=== PATIENT | female | born 1935 | race Caucasian/White ===

== ENCOUNTER → 2016-09-26 | Outpatient (CLI) | payer OTHER ==
[~2016-09-26] MED LIST: ACETAMINOPHEN325 M1 PO; ADULT LOW DOSE81 MG PO; ADVAIRDISKUS; ALBUTEROL2.5 MG/0.5 INH; AMBIEN 5 MG TABL5 M1 PO; ARICEPT10 M1 PO; ASPIRIN EC81 M1 PO; ASPIRIN325; AVAPRO300 MG PO; AVELOX 400 MG400 M1 PO; AVELOX 400 MG400 MG PO; AVINZA 30 MG CA30 MG PO; B-COMPLEX PLUS1 EACH PO; B12INJ PO; BALANCED B-CO400 MCG PO; BENICAR40 MG PO; BROMDAY1.7 ML; BROMDAY1.7 ML OP; BROVANA15 MCG/2 M INH; BYSTOLIC 5 MG5 M1 PO; CARVEDILOL12.5 MG PO; CELEXA 20 MG TA20 M1 PO; CEPHALEXIN 500500 M1 PO; CIPRO500 MG PO; CIPROFLOXACIN500 M3 PO; COMBIVENT INH; COUMADIN 3 MG TA3 MG PO; COUMADIN 4 MG TA4 M1 PO; COZAAR 25 MG TA25 M1 PO; CYMBALTA60 MG PO; DESYREL150 MG; DESYREL50 MG PO; DIABETA 5MG TABL5 MG; DILAUDID 4 MG TA4 M1 PO; DOXYCYCLINE 10100 MG PO; DUONEB 2.5-0.5 M3 ML IH; DUONEB 2.5-0.5 M3 ML INH; DURAGESIC1 EAC2 TD; ENDOCET 10-3251 EACH PO; FENTANYL PA12 MCG/HR TD; FISH OIL 1,001000 M1 PO; FISHOIL PO; FLOMAX PO; FLONASE16 GM; FOLIC ACID1 MG PO; FUROSEMIDE 40 M40 M1 PO; GLYBURID-METFO1 EAC3 PO; GLYBURIDE 5 MG T5 MG PO; HUMALOG PE100 UNIT/1 SUBQ; HUMALOG PE100 UNIT/M SUBQ; HUMALOG100 UNIT/1 SQ; HYDROCODON-ACE1 EAC5 PO; HYDROCODON-ACE1 EAC7 PO; HYDROCODONE-AP1 EA11 PO; IMDUR 30 MG TAB30 M1 PO; K-DUR 20 MEQ T20 MEQ PO; KLOR-CON PO; LASIX 40 MG TAB40 M2 PO; LEVEMIR SC; LEVEMIR SUBQ; LIDOCAINE 22 %/30 GM; LIPITOR 20 MG T20 M1 PO; LIPITOR40 MG PO; LISINOPRIL40 MG PO; LOTEMAX5 ML; LOTEMAX5 ML OP; LUTEIN10 MG PO; LUTEIN20 MG PO; LYRICA 75 MG CA75 MG PO; MACROBID 100 M100 M1 PO; MEDROLDOSEPACK PO; MELOXICAM7.5 MG PO; METHADONE HCL 110 M1 PO; METOCLOPRAMIDE10 MG PO; MIRALAX17 GM PO; MIRALAX255 GM PO; MUCINEX600 MG PO; NEOMYC-POLYM-DEX5 ML TOP; NEURONTIN 300300 M1 PO; NEURONTIN 300M300 M2; NEURONTIN 300M300 M2 PO; NEURONTIN 400400 M1 PO; NEURONTIN800 MG PO; NEXIUM40 MG PO; NITROGLYCERIN0.4 MG SL; NORCO 10-325 T1 EACH PO; NORCO 5-325 TA1 EACH PO; NORCO 7.5-3251 EACH PO; NORVASC5 MG PO; NUCYNTA ER200 MG PO; OMNARIS; OPANA ER10 M1 PO; OPANA ER15 M1 PO; OPANA ER7.5 M1 PO; OXECTA5 MG PO; OXYCODONE-ACET1 EACH PO; OXYCONTIN PO; OXYCONTIN10 M1 PO; OXYCONTIN10 MG PO; OXYCONTIN15 MG PO; PERCOCET 10-321 EACH PO; PERCOCET 5-3251 EACH PO; PERCOCET 7.5-31 EAC1 PO; PHENERGAN 25 MG25 M1 PO; PHENERGAN 25 MG25 MG PO; PHISOHEX148 ML; PLAVIX 75 MG TA75 MG PO; POTASSIUM20 PO; PREDNISONE; PREDNISONE 10 M10 M1 PO; PREDNISONE 10 M10 MG PO; PREDNISONE 5 MG5 M1 PO; PREDNISONE 5 MG5 MG PO; PREVACID 24HR15 MG PO; PREVACID 30MG C30 M1 PO; PRINIVIL10 MG PO; PROTONIX40 M1 PO; PROVENTIL; PROVENTIL HFA6.7 G1 INH; SANTYL OINTMENT30 G1 TOP; SANTYL OINTMENT30 G1 TP; SENNA-S TABLET1 EACH PO; SERTRALINE HCL50 MG PO; SIMVASTATIN40 MG PO; SINGULAIR 10 MG10 M1 PO; SPIRIVA INH; SYMBICORT160 MCG/4. INH; TAMSULOSIN HCL0.4 M1 PO; TAMSULOSIN HCL0.4 MG PO; TEGRETOL200 MG PO; TIZANIDINE HCL6 MG PO; TRAMADOL 50 MG50 MG PO; TRAZODONE HCL50 MG PO; TRIPLE ANTIBIO1 EACH TP; ULTRAM 50MG TAB50 MG PO; UNICOMPLEX M TA1 TA1 PO; VITAMIN B-12100 MC1 PO; VITAMIN B-12500 MCG PO; VITAMIN C PLUS PO; VITAMIN C PO; VITAMIN D-32000 UNIT PO; VOLTAREN GEL 1100 G1 TOP; VOLTAREN100 GM; VYTORIN 10-401 EACH PO; VYTORIN 10-801 EACH PO; ZANAFLEX4 MG PO; ZAROXOLYN 5MG TA5 M1 PO; ZETIA10 MG PO; [UNRECOGNIZED DRUG - OTHER] PO; [UNRECOGNIZED DRUG - OTHER] TOP
== END ==
LOC: RAD 15:00
DX: R06.02 Shortness of breath (principal); J18.9 Pneumonia, unspecified organism; R91.8 Other nonspecific abnormal finding of lung field; R07.9 Chest pain, unspecified

== ENCOUNTER → 2016-09-29 | Outpatient (CLI) | payer OTHER ==
[~2016-09-29] VITALS: Ht 167.6 cm; Wt 97.5 kg
--- NOTE | ~2016-09-29 | HPC ---
[facility] [address] [place] [address] PAIN MANAGEMENT CONSULTATION Name: DONNACINDYDENZELESTEBAN ANN Room #: REG LAWRENCE Armstrong.#: [id number] Admission: 09/29/16 Attend Phys: Jorje Jha DO Discharge: Date of : 37 Report #: [id number] THIS REPORT FOR: //name// CC: Clayton Jha The patient is a 81-year-old female well known to the pain clinic, being treated for lumbar radiculopathy status post decompressive laminectomy, SI joint dysfunction, myofascial pain, morbid obesity, COPD requiring complex medication management, last visit 08/01/2016, we increased the patient's methadone about 33% from 10 mg t.i.d. to 2 in the morning, 1 at noon, 1 at night, continued hydromorphone 4 mg t.i.d. Returns to pain clinic today noting really no dramatic improvement with this slight increase in her opiate medication. She describes sharp, stabbing, aching, burning pain, bilateral legs, rates it a 5-8 on a 0-10 visual analog scale, worse with activity. Continues to take Tegretol b.i.d. (200 mg tablet). PHYSICAL EXAMINATION: Otherwise unchanged, 81-year-old female, BMI is 34.7 kilograms per meter squared. Using supplemental oxygen for COPD. BMI is elevated at 34.7, blood pressure is on EMR, pulse 72, respirations are 20, oxygen saturation is 97%. Is in a wheel-chair presently, notes she is becoming less and less functional, lower extremity burning, dysesthesia is problematic with any and all movement. Lower extremity strength is objectively symmetric to dorsiflexion, plantar flexion, lower extremity extension and hip flexion. Objective strength is perhaps 3-4/5. Straight leg raise is negative. Peripheral pulses are faint. ASSESSMENT: Lumbar radiculopathy status post decompressive laminectomy, SI joint dysfunction, myofascial pain component, neuropathic pain component, requiring complex medication management. Comorbidities include morbid obesity and chronic obstructive pulmonary disease. RECOMMENDATIONS: After discussion with the patient today, I have elected to simply continue methadone unchanged, 10 mg 2 in the morning, 1 at noon, 1 at night, hydromorphone 4 mg t.i.d. I recommend that she follow up with Dr. Lazo regarding consideration for vascular claudication. If this is not the case we may consider increasing her Tegretol to t.i.d. next visit. Discharged in good and stable condition. <ELECTRONICALLY SIGNED> By: Jorje Jha DO 10/06/16 [id number] Jorje Jha DO /nt
[2016-09-29 11:09] VITALS: BP 123/69
== END ==
LOC: PAIN 06:47
DX: M54.16 Radiculopathy, lumbar region (principal); M96.1 Postlaminectomy syndrome, not elsewhere classified; M79.1 Myalgia; E66.01 Morbid (severe) obesity due to excess calories; Z68.34 Body mass index [BMI] 34.0-34.9, adult; J44.9 Chronic obstructive pulmonary disease, unspecified; I10 Essential (primary) hypertension

== ENCOUNTER → 2016-10-10 | Outpatient (CLI) | payer OTHER | LOC: RAD 01:12 | DX: Z12.31 Encounter for screening mammogram for malignant neoplasm of breast (principal) ==

== ENCOUNTER 2016-12-12 10:39 | Emergency (ER) | payer OTHER ==
[~2016-12-12] VITALS: Ht 165.1 cm; Wt 97.1 kg
--- NOTE | ~2016-12-12 | EKG ---
[address] [place] [place] [address] ELECTROCARDIOGRAM REPORT Name: ESTEBAN OOR Room #: DEP Nidia#: [id number] Admission: 12/12/16 Attend Phys: Discharge: 12/12/16 Date of : 37 Report #: [id number] THIS REPORT FOR: //name// [facility] ED Test Date: 2016-12-12 Test Time: 11:16:03 Pat Name: ESTEBAN ORO Department: Room: Gender: F Transporter Driver: mojgan : 1935 Requested By: Yovana Camp Order Number: [id number] MD: Arias Vizcaino Measurements Intervals [place] Rate: 60 P: 156 OR: 149 QRS: 28 QRSD: 94 T: 147 QT: 411 QTc: 411 Interpretive Statements Sinus or ectopic atrial rhythm Probable left atrial enlargement Inferior infarct, old Compared to ECG 03/10/2016 12:29:48 Ectopic atrial rhythm now present no change Electronically Signed On 12-12-2016 18:23:14 CDT by Arias Vizcaino [email or web address] <ELECTRONICALLY SIGNED> By: Arias Vizcaino MD 12/12/16 1823 1116 15 MD AVA Gamino
[~2016-12-12 10:39] MED LIST changes: -CIPRO500 MG PO
[2016-12-12 11:06] LABS: URINE BILIRUBIN NEGATIVE (Negative); URINE BLOOD TRACE (Negative); URINE COLOR YELLOW; URINE GLUCOSE-RANDOM* NEGATIVE (Negative); URINE KETONES NEGATIVE (Negative); URINE NITRITE POSITIVE (Negative); URINE PROTEIN (DIPSTICK) 1+ (Negative); URINE SPECIFIC GRAVITY 1.015 (1.003-1.035); URINE UROBILINOGEN 0.2 E.U./dl (0.2-1.0)
[2016-12-12 11:38] LABS: ABSOLUTE NEUTROPHILS 4.9 thou/uL (1.4-8.2); BASOPHILS 0.7 % (0.0-2.0); EOSINOPHILS 3.2 % (0.0-3.0); HEMATOCRIT 30.4 % (37.0-47.0); HEMOGLOBIN 10.2 gm/dL (12.0-15.0); LYMPHOCYTES 22.6 % (24.0-44.0); MCH 29.9 pg (26.0-34.0); MCHC 33.6 g/dL (28.0-37.0); MONOCYTES 9.7 % (1.0-8.0); PLATELET COUNT 227 thou/uL (150-400); POLYS 63.8 % (36.0-66.0); RBC 3.42 mil/uL (4.20-5.00); RDW 15.2 % (10.5-14.5); WBC 7.7 thou/uL (4.0-11.0)
[2016-12-12 11:40] LABS: MANUAL DIFF NO
[2016-12-12 11:48] LABS: CALCIUM 8.8 mg/dL (8.5-10.1); CREATININE 1.3 mg/dL (0.6-1.3); POTASSIUM 4.5 mmol/L (3.5-5.1)
[2016-12-12 11:49] LABS: SQUAMOUS 0-3 Few /LPF (0-3)
[2016-12-12 11:50] LABS: CRYSTALS None Seen /LPF (None Seen); HYALINE CASTS 4-10 Moderate /LPF (None Seen); URINE RBC 3-10 Few /HPF (0-2)
[2016-12-12 11:51] LABS: BACTERIA >30 Many /HPF (None Seen)
[2016-12-12 11:53] LABS: ALBUMIN 2.8 g/dL (3.4-5.0); TOTAL BILIRUBIN 0.4 mg/dL (<0.1-1.0); TOTAL PROTEIN 6.1 g/dL (6.4-8.2)
[2016-12-12] MEDS ORDERED: CIPRO500 MG PO (12:08)
[2016-12-12 13:04] VITALS: BP 142/68
== END 2016-12-12 13:05 | disposition home or self-care (01) ==
LOC: ER 10:39
PROVIDERS: Physician Assistant
DX: N39.0 Urinary tract infection, site not specified (principal); J44.9 Chronic obstructive pulmonary disease, unspecified; E11.22 Type 2 diabetes mellitus with diabetic chronic kidney disease; I13.0 Hypertensive heart and chronic kidney disease with heart failure and stage 1 through stage 4 chronic kidney disease, or unspecified chronic kidney disease; N18.9 Chronic kidney disease, unspecified; I50.32 Chronic diastolic (congestive) heart failure; E78.00 Pure hypercholesterolemia, unspecified; K21.9 Gastro-esophageal reflux disease without esophagitis; Z90.49 Acquired absence of other specified parts of digestive tract; Z90.710 Acquired absence of both cervix and uterus; Z88.6 Allergy status to analgesic agent; Z88.8 Allergy status to other drugs, medicaments and biological substances; Z88.5 Allergy status to narcotic agent

== ENCOUNTER → 2017-01-19 | Outpatient (CLI) | payer OTHER ==
[~2017-01-19] VITALS: Ht 167.6 cm; Wt 96.9 kg
[~2017-01-19] MED LIST changes: +ANORO ELLIPTA1 EACH IH; +ARICEPT 5 MG TAB5 MG PO; +CIPRO500 MG PO; +COZAAR 50 MG TA50 M2 PO; +LEXAPRO 10 MG T10 M2 PO; +VENTOLIN HFA 1818 GM INH
--- NOTE | ~2017-01-19 | HPC ---
[facility] [place] [place] [address] PAIN MANAGEMENT CONSULTATION Name: ESTEBAN ORO Room #: REG LAWRENCE Jacob#: [id number] Admission: 01/19/17 Attend Phys: Jorje Jha DO Discharge: Date of : 37 Report #: [id number] THIS REPORT FOR: //name// CC: Clayton Jha The patient is a 81-year-old female, well known to pain clinic, being treated for lumbar radiculopathy status post decompressive laminectomy, SI joint dysfunction, myofascial pain, chronic pain syndrome requiring complex medication management with comorbidities of morbid obesity and COPD. Last visit 11/24/2016, we continued baseline narcotic methadone 10 mg 2 in the morning, 1 at noon, 1 at night, this had been 33% increase in her overall opiate load from July when we increased from t.i.d. to effectively 4 tablets a day. At the last visit, she was still having ongoing pain concerns, using hydromorphone for breakthrough pain 4 mg t.i.d. We elected to rotate to Percocet 10/325 for the breakthrough medicine. She returns to pain clinic today for prolonged visit, she was seen from 8:51-9:20, greater than 50% of this 25 plus minute visit was spent counseling the patient. She has ongoing pain in her back radiating into the left leg. We had done epidural injections in the past, she is now on anticoagulant for history of the DVT. It appears the last lumbar epidural injection had been in August 2015. The patient is complaining of pain, low back, bilateral legs, left greater than right, exacerbated with standing, walking and bending. Describes sharp, stabbing, aching, burning pain, rates it as a 6-7 on a 0-10 visual analog scale with current opiate. PHYSICAL EXAMINATION: Shows 81-year-old female, moderately obese, BMI is 34.5 kg/m2. Blood pressure 157/79, pulse is 80, respirations are 14, and oxygen saturation is 95%. Difficulty rising from the chair, decreased strength in the left leg to hip flexion, lower extremity extension, positive straight leg raise on the left. I reviewed there are no urine drug screens on the chart. In the interval since we last saw her, she was seen in the ER 12/12/2016, for right flank pain, diagnosed as a UTI, she has completed that medication course. The patient is planning on having eye surgery on February 04, for diplopia. She was actually having eye muscle surgery at [facility]. We have elected to postpone interventional therapy with steroids at least 4 weeks after surgery, we will plan on seeing her back in 6 weeks for reevaluation 5 days off Coumadin for consideration for epidural injection under fluoroscopy. We reviewed the fact that opiate medications are being used to provide analgesia [address] [address] PAIN MANAGEMENT CONSULTATION Name: ESTEBAN ORO Room #: REG LAWRENCE Jacob#: [id number] Admission: 01/19/17 Attend Phys: Jorje Jha DO Discharge: Date of : 37 Report #: [id number] adequate to support activities of daily living, not attempting to achieve a specific pain score on the 0-10 Visual Analog Scale. The current opiate medications are providing sufficient analgesia to allow the patient to participate in activities of daily living. The patient is not exhibiting any aberrant behavior suggestive of drug diversion. The patient is not having any adverse reactions to medications. The patient is not suffering from daytime somnolence or mental acuity changes. The patient is managing opiate-induced constipation with appropriate etmg-dxa-dchviya agents and dietary considerations. The patient was counseled on concern for caution with operating a motor vehicle while using opiate medications. A physical exam was performed and the patient's functional status was evaluated. All patients with back pain were advised against the bed rest greater than 4 days and were advised to return to normal activities. Pain score assessment was noted and the treatment plan was reviewed with the patient. All current medications, both prescribed and OTC were reviewed and reconciled on the electronic medical record. Tobacco screening was accomplished and smoking cessation was advised when indicated. BMI was noted and diet/exercise modification was recommended for all patients following outside normal parameters. I reviewed with the patient today their responsibilities to safeguard prescription medications, reviewed their responsibility to utilize medications only as prescribed by the physician. They are to seek and receive pain medications only from 1 physician group ( [facility]). They are to use 1 pharmacy and keep the clinic informed if they change pharmacies. Their responsibilities include making followup visits in a timely fashion and to avoid abrupt discontinuation of medication usage. Their responsibilities further include bringing their medications (bottles from the pharmacy with residual pills) to the visit for possible confirmation of pill counts and the patient understands it is their responsibility to submit to random drug screens to ensure both that the medications prescribed are present, and that no other controlled substances are present. All prescriptions provided today were generated electronically. ASSESSMENT: Symptomatic lumbar radiculopathy status post decompressive laminectomy, sacroiliac joint dysfunction, myofascial pain requiring complex medication management with multiple comorbidities including chronic obstructive pulmonary disease and morbid obesity. RECOMMENDATION: Continue methadone unchanged 10 mg 2 tablets in the morning, 1 at noon, and 1 at night, i.e., 4 tablets a day and we will rotate from Percocet back to hydromorphone 4 mg t.i.d. for breakthrough pain, continue Tegretol unchanged 200 mg b.i.d. Urine drug screen today, no aberrant behavior suggestive for drug diversion, simply complying with our opiate consent to treat contract. Current opiate should show methadone and oxycodone. Rotated back to [facility] [address] [place] [address] PAIN MANAGEMENT CONSULTATION Name: ESTEBAN ORO Room #: REG CL Nidia#: [id number] Admission: 01/19/17 Attend Phys: Jorje Jha DO Discharge: Date of : 37 Report #: [id number] hydromorphone for breakthrough pain. Discharged in good and stable condition after a prolonged visit, greater than 50% of the 25 plus minute visit was spent counseling the patient. By: [id number] Jorje Jha DO /nt
[2017-01-19 08:34] VITALS: BP 157/79
== END ==
LOC: PAIN 07:23
DX: M54.16 Radiculopathy, lumbar region (principal); J44.9 Chronic obstructive pulmonary disease, unspecified; E66.01 Morbid (severe) obesity due to excess calories; I10 Essential (primary) hypertension; G89.4 Chronic pain syndrome

== ENCOUNTER 2017-03-20 08:02 | Emergency (ER) | payer OTHER ==
[~2017-03-20] VITALS: Ht 165.1 cm; Wt 81.7 kg
[2017-03-20 08:28] LABS: URINE BILIRUBIN NEGATIVE (Negative); URINE BLOOD 1+ (Negative); URINE COLOR YELLOW; URINE GLUCOSE-RANDOM* 2+ (Negative); URINE KETONES NEGATIVE (Negative); URINE NITRITE NEGATIVE (Negative); URINE PROTEIN (DIPSTICK) 2+ (Negative); URINE SPECIFIC GRAVITY 1.015 (1.003-1.035); URINE UROBILINOGEN 0.2 E.U./dl (0.2-1.0)
[2017-03-20 08:46] LABS: BACTERIA 1-9 Few /HPF (None Seen); CASTS None Seen /LPF (None Seen); CRYSTALS None Seen /LPF (None Seen); SQUAMOUS 4-10 Moderate /LPF (0-3); URINE RBC 3-10 Few /HPF (0-2); URINE WBC 0-5 Rare /HPF (0-5)
[2017-03-20 08:46] LABS: ABSOLUTE NEUTROPHILS 11.5 thou/uL (1.4-8.2); BASOPHILS 0.6 % (0.0-2.0); EOSINOPHILS 1.6 % (0.0-3.0); HEMATOCRIT 35.7 % (37.0-47.0); HEMOGLOBIN 11.7 gm/dL (12.0-15.0); LYMPHOCYTES 10.1 % (24.0-44.0); MCH 29.5 pg (26.0-34.0); MCHC 32.7 g/dL (28.0-37.0); MCV 90.2 fL (80.0-100.0); MONOCYTES 6.7 % (1.0-8.0); PLATELET COUNT 288 thou/uL (150-400); RBC 3.96 mil/uL (4.20-5.00); RDW 14.1 % (10.5-14.5); WBC 14.2 thou/uL (4.0-11.0)
[2017-03-20 08:49] LABS: MANUAL DIFF NO
[2017-03-20 08:55] LABS: CALCIUM 9.5 mg/dL (8.5-10.1); CREATININE 1.6 mg/dL (0.6-1.0); POTASSIUM 4.2 mmol/L (3.5-5.1)
[2017-03-20 08:59] LABS: ALBUMIN 3.5 g/dL (3.4-5.0); DIRECT BILIRUBIN 0.1 mg/dL (<0.1-0.3); TOTAL BILIRUBIN 0.5 mg/dL (<0.1-1.0); TOTAL PROTEIN 7.6 g/dL (6.4-8.2)
[2017-03-20 10:46] VITALS: BP 152/67
[2017-03-20 11:20] LABS: PROTIME 10.7 Seconds (9.3-11.4)
[2017-03-20] MEDS ORDERED: TEGRETOL200 MG PO (11:39)
[2017-03-20] MEDS ORDERED: METHADONE HCL 110 M1 PO ×2 (11:39)
[2017-03-20] MEDS ORDERED: DILAUDID 4 MG TA4 M1 PO (11:39)
== END 2017-03-20 10:51 | disposition home or self-care (01) ==
LOC: ER 08:02
PROVIDERS: Anesthesiology Pain Medicine; Emergency Medicine
DX: M54.6 Pain in thoracic spine (principal); R10.9 Unspecified abdominal pain; I25.10 Atherosclerotic heart disease of native coronary artery without angina pectoris; I25.2 Old myocardial infarction; I13.0 Hypertensive heart and chronic kidney disease with heart failure and stage 1 through stage 4 chronic kidney disease, or unspecified chronic kidney disease; E11.22 Type 2 diabetes mellitus with diabetic chronic kidney disease; N18.9 Chronic kidney disease, unspecified; I50.9 Heart failure, unspecified; J44.9 Chronic obstructive pulmonary disease, unspecified; E78.5 Hyperlipidemia, unspecified; K21.9 Gastro-esophageal reflux disease without esophagitis; E11.43 Type 2 diabetes mellitus with diabetic autonomic (poly)neuropathy; K31.84 Gastroparesis; M19.90 Unspecified osteoarthritis, unspecified site; Z95.5 Presence of coronary angioplasty implant and graft; Z90.49 Acquired absence of other specified parts of digestive tract; Z90.710 Acquired absence of both cervix and uterus; Z86.711 Personal history of pulmonary embolism; Z86.718 Personal history of other venous thrombosis and embolism; Z85.841 Personal history of malignant neoplasm of brain; Z87.442 Personal history of urinary calculi; Z79.4 Long term (current) use of insulin; Z88.5 Allergy status to narcotic agent; Z88.8 Allergy status to other drugs, medicaments and biological substances

== ENCOUNTER → 2017-03-20 | Outpatient (CLI) | payer OTHER ==
[~2017-03-20] VITALS: Ht 167.6 cm; Wt 102.5 kg
[2017-03-20 10:54] VITALS: BP 121/84
== END ==
LOC: PAIN 06:51
DX: M54.16 Radiculopathy, lumbar region (principal); G89.29 Other chronic pain; M47.896 Other spondylosis, lumbar region; I25.10 Atherosclerotic heart disease of native coronary artery without angina pectoris; F11.20 Opioid dependence, uncomplicated; J44.9 Chronic obstructive pulmonary disease, unspecified; Z86.711 Personal history of pulmonary embolism; Z95.5 Presence of coronary angioplasty implant and graft; Z79.01 Long term (current) use of anticoagulants; Z79.899 Other long term (current) drug therapy; Z98.890 Other specified postprocedural states; Z88.8 Allergy status to other drugs, medicaments and biological substances

== ENCOUNTER → 2017-04-02 | Outpatient (CLI) | payer OTHER ==
[~2017-04-02] VITALS: Ht 167.6 cm; Wt 102.2 kg
[2017-04-02 10:14] VITALS: BP 131/109
== END | disposition home or self-care (01) ==
LOC: PAIN 06:45
DX: M47.816 Spondylosis without myelopathy or radiculopathy, lumbar region (principal); Z98.890 Other specified postprocedural states; J44.9 Chronic obstructive pulmonary disease, unspecified

== ENCOUNTER → 2017-04-07 | Outpatient (CLI) | payer OTHER | LOC: CAT 08:43 | DX: N20.0 Calculus of kidney (principal) ==

== ENCOUNTER → 2017-05-06 | Outpatient (CLI) | payer OTHER | LOC: MRI 10:20 | DX: M47.896 Other spondylosis, lumbar region (principal); M48.06 Spinal stenosis, lumbar region; M51.34 Other intervertebral disc degeneration, thoracic region; M79.1 Myalgia ==

== ENCOUNTER → 2017-06-02 | Outpatient (CLI) | payer OTHER | LOC: CAT 08:00 → EDSTATUS 08:51 → CAT 11:12 | DX: K59.00 Constipation, unspecified (principal); M79.3 Panniculitis, unspecified ==

== ENCOUNTER → 2017-06-08 | Outpatient (CLI) | payer OTHER ==
[~2017-06-08] VITALS: Ht 165.1 cm; Wt 100.5 kg
--- NOTE | ~2017-06-08 | HPC ---
[facility] [place] [address] PAIN MANAGEMENT CONSULTATION Name: ESTEBAN ORO Room #: REG LAWRENCE Jacob#: [id number] Admission: 06/08/17 Attend Phys: Jorje Jha DO Discharge: Date of : 37 Report #: [id number] THIS REPORT FOR: //name// CC: Clayton Jha The patient is an 82-year-old female last seen in the pain clinic on 01/19/2017, being treated for lumbar radiculopathy status post decompressive laminectomy, lumbar spondylosis, SI joint dysfunction, morbid obesity and COPD requiring high risk complex medication management. The patient was continued at last visit on methadone 10 mg 2 in the morning, 1 at noon, 1 at night. We rotated from Percocet 10/325 to hydromorphone 4 mg t.i.d. Continued Tegretol 200 mg b.i.d. Urine drug screen at that time was positive for prescribed medications as expected. The patient returns to pain clinic today. She notes that the right L4-L5 and L5-S1 facet joint injections accomplished at last visit afforded very good relief, but only for a number of days. She notes pain continues to be primarily in the right low back. She is using current pain medications with reasonable efficacy. She is typically quite disabled in a wheelchair, but notes back pain interferes with function. Rates her pain a 4-5 on a VAS. Pain is in the center, right mid low back. Also complains of some left knee pain. She is following with Dr. Monsalve regarding her knees. She is planning on having surgery with him in June. We reviewed the fact that opiate medications are being used to provide analgesia adequate to support activities of daily living, not attempting to achieve a specific pain score on the 0-10 Visual Analog Scale. The current opiate medications are providing sufficient analgesia to allow the patient to participate in activities of daily living. The patient is not exhibiting any aberrant behavior suggestive of drug diversion. The patient is not having any adverse reactions to medications. The patient is not suffering from daytime somnolence or mental acuity changes. The patient is managing opiate-induced constipation with appropriate iiau-tub-jkbmarh agents and dietary considerations. The patient was counseled on concern for caution with operating a motor vehicle while using opiate medications. A physical exam was performed and the patient's functional status was evaluated. All patients with back pain were advised against the bed rest greater than 4 days and were advised to return to normal activities. Pain score assessment was noted and the treatment plan was reviewed with the patient. All current medications, both prescribed and OTC were reviewed and reconciled on the electronic medical record. Tobacco screening [place] [address] PAIN MANAGEMENT CONSULTATION Name: ESTEBAN ORO Room #: REG LAWRENCE Jacob#: [id number] Admission: 06/08/17 Attend Phys: Jorje Jha DO Discharge: Date of : 37 Report #: [id number] cessation was advised when indicated. BMI was noted and diet/exercise modification was recommended for all patients following outside normal parameters. I reviewed with the patient today their responsibilities to safeguard prescription medications, reviewed their responsibility to utilize medications only as prescribed by the physician. They are to seek and receive pain medications only from 1 physician group ( [facility]). They are to use 1 pharmacy and keep the clinic informed if they change pharmacies. Their responsibilities include making followup visits in a timely fashion and to avoid abrupt discontinuation of medication usage. Their responsibilities further include bringing their medications (bottles from the pharmacy with residual pills) to the visit for possible confirmation of pill counts and the patient understands it is their responsibility to submit to random drug screens to ensure both that the medications prescribed are present, and that no other controlled substances are present. All prescriptions provided today were generated electronically. PHYSICAL EXAMINATION: GENERAL: Shows 82-year-old female. VITAL SIGNS: BMI is elevated at 36.9 kilograms per meter squared, supplemental oxygen yielding oxygen saturation 95% (I believe is at 3 liters presently). Blood pressure 129/72, pulse 68, respirations 22. NEUROLOGIC: Alert and oriented to person, place and time, judged to be a reasonable historian. EXTREMITIES: Very tender right low back, pain is exacerbated with rotation and side bending. Lower extremity strength generally symmetric, but diminished, moderately antalgic gait. ASSESSMENT: Lumbar radiculopathy status post decompressive laminectomy, sacroiliac joint dysfunction, morbid obesity, chronic obstructive pulmonary disease requiring high risk complex medication management. Urine drug screen last visit positive for prescribed medications. Renew current medications unchanged, methadone 10 mg 2 in the morning, 1 at noon, 1 in the , hydromorphone 4 mg t.i.d., Tegretol 200 mg b.i.d. Acute exacerbation of axial back pain and lumbar spondylosis. Good transient relief with lumbar facet joint injections at L4-L5 and L5-S1. Move forward with medial branch dorsal rami diagnostic blocks at L3, L4, L5 on the right. If this affords transient relief, we will consider moving forward with radiofrequency neurolysis. We can do the blocks with a 25-gauge needle on Coumadin; however, to move forward with neurolysis, somewhat larger needle, we will want to ensure that the patient is not on her Coumadin and INR is less than 1.5. The patient understands this. [facility] [address] [place] [address] PAIN MANAGEMENT CONSULTATION Name: DONNACINDYESTEBAN Room #: REG CL Nidia#: [id number] Admission: 06/08/17 Attend Phys: Jorje Jha DO Discharge: Date of : 37 Report #: [id number] PROCEDURE NOTE: Medial branch dorsal rami diagnostic block on the right L3, L4, L5. DESCRIPTION OF PROCEDURE: After written informed consent was obtained, the patient was taken to fluoroscopy suite, placed in prone position. After sterile prep and drape, skin was raised, a 25-gauge stylet needle was placed to contact superior articular process of L5 and L4, lateral to the L3-L4 and L4-L5 facet joints and third needle was placed to the sacral alar notch corresponding to the L5 dorsal rami. AP and lateral projections showed good needle placement. A 1 mL of 50:50 mix of 0.5% preservative-free bupivacaine plus 1.5% preservative-free Xylocaine with 1:200,000 epinephrine was injected at all 3 sites. All 3 needles removed. The area was cleansed, Band-Aids applied. The patient was monitored for an appropriate period of time, notes some incremental improvement of baseline pain. She will call back tomorrow with subjective pain score for the next 4 hours. We will decide then to move forward with RFL or not. By: [id number] Jorje Jha DO /chau
[2017-06-08 13:04] VITALS: BP 129/72
== END | disposition home or self-care (01) ==
LOC: PAIN 07:17
DX: M47.816 Spondylosis without myelopathy or radiculopathy, lumbar region (principal); G89.29 Other chronic pain; M54.5 Low back pain; M53.3 Sacrococcygeal disorders, not elsewhere classified; J44.9 Chronic obstructive pulmonary disease, unspecified; E66.01 Morbid (severe) obesity due to excess calories; Z79.891 Long term (current) use of opiate analgesic; Z68.36 Body mass index [BMI] 36.0-36.9, adult; Z88.6 Allergy status to analgesic agent; Z88.8 Allergy status to other drugs, medicaments and biological substances; Z79.899 Other long term (current) drug therapy; Z98.890 Other specified postprocedural states

== ENCOUNTER → 2017-06-19 | Outpatient (CLI) | payer OTHER ==
[~2017-06-19] VITALS: Ht 165.1 cm; Wt 99.3 kg
[~2017-06-19] MED LIST changes: +ACCUNEB SO1.25 MG/1 INH; +ANORO ELLIPTA1 EACH INH; +FLOMAX0.4 MG PO
--- NOTE | ~2017-06-19 | HPC ---
[facility] [address] PAIN MANAGEMENT CONSULTATION Name: DONNACINDYDENZELESTEBAN ANN Room #: REG LAWRENCE Jacob#: [id number] Admission: 06/19/17 Attend Phys: Jorje Jha DO Discharge: Date of : 37 Report #: [id number] THIS REPORT FOR: //name// CC: Clayton Jha HISTORY OF PRESENT ILLNESS: The patient is a very pleasant 82-year-old female being treated for symptomatic lumbar radiculopathy status post decompressive laminectomies and lumbar spondylosis, comorbidities include COPD requiring high-risk complex medication management. Last visit was on 06/08/2017. We had preceded with medial branch dorsal rami diagnostic blocks L3, L4 and L5 for right-sided ongoing pain. The patient notes she had excellent short term relief. She presents to pain clinic today for radiofrequency neurolysis of same. Rates his subjective pain score is 3-4 on a VAS. ASSESSMENT: Right low back pain, lumbar spondylosis. RECOMMENDATIONS: Radiofrequency neurolysis L3, L4 and L5. PROCEDURE: After written informed consent was obtained, the patient was taken to the fluoroscopy suite and placed in prone position. After sterile prep and drape, skin wheal was raised. A 15 mm RFK needle was placed to contact superior articular process of L5, L4, and L3. AP and lateral projection showed good needle placement. Initial impedance, sensory and motor testing was accomplished, those numbers are on the chart. Each needle was injected with 1 mL of 1% preservative-free Xylocaine, heated to 80 degrees centigrade for 90 seconds. A 13 mg of triamcinolone plus 1 mL of 0.5% preservative-free bupivacaine was injected at each site. All 3 needles removed. The area was cleansed, Band-Aids applied. Fluoroscopy time was under 20 seconds. The patient was monitored for an appropriate period of time, discharged in good and stable condition, noting incremental improvement of baseline pain. Follow up for medication management. <ELECTRONICALLY SIGNED> By: Jorje Jha DO 06/22/17 1014 1614 [id number] Jorje Jha DO /nt
[2017-06-19 14:13] VITALS: BP 148/100
== END | disposition home or self-care (01) ==
LOC: PAIN 07:22
DX: M47.26 Other spondylosis with radiculopathy, lumbar region (principal); J44.9 Chronic obstructive pulmonary disease, unspecified; Z87.891 Personal history of nicotine dependence

== ENCOUNTER 2017-06-23 01:48 | Inpatient (IN) | payer OTHER ==
[2017-06-15 09:30] LABS: URINE BILIRUBIN NEGATIVE (Negative); URINE BLOOD TRACE (Negative); URINE COLOR YELLOW; URINE GLUCOSE-RANDOM* NEGATIVE (Negative); URINE KETONES NEGATIVE (Negative); URINE LEUKOCYTES-REFLEX NEGATIVE (Negative); URINE PROTEIN (DIPSTICK) 2+ (Negative); URINE SPECIFIC GRAVITY 1.015 (1.003-1.035); URINE UROBILINOGEN 0.2 E.U./dl (0.2-1.0)
[2017-06-15 09:34] LABS: HEMATOCRIT 31.5 % (37.0-47.0); HEMOGLOBIN 10.3 gm/dL (12.0-15.0); MCH 28.8 pg (26.0-34.0); MCHC 32.8 g/dL (28.0-37.0); MCV 87.9 fL (80.0-100.0); RBC 3.58 mil/uL (4.20-5.00); RDW 15.2 % (10.5-14.5); WBC 8.9 thou/uL (4.0-11.0)
[2017-06-15 09:41] LABS: CALCIUM 8.8 mg/dL (8.5-10.1); CREATININE 1.2 mg/dL (0.6-1.0)
[2017-06-15 09:43] LABS: INR 1.2; PROTIME 12.4 Seconds (9.3-11.4)
[2017-06-15 09:56] LABS: SQUAMOUS 4-10 Moderate /LPF (0-3)
[2017-06-15 09:57] LABS: HYALINE CASTS 0-3 Few /LPF (None Seen)
[2017-06-15 09:59] LABS: CRYSTALS None Seen /LPF (None Seen); URINE RBC 0-2 Rare /HPF (0-2); URINE WBC-REFLEX 0-5 Rare /HPF (0-5)
[2017-06-15 17:07] LABS: GLYCOHEMOGLOBIN (HGB A1C) 6.5 % (4.8-5.6)
[~2017-06-23] VITALS: Ht 167.6 cm; Wt 90.7 kg
--- NOTE | ~2017-06-23 | O ---
[facility] [place] [address] OPERATIVE REPORT Name: ESTEBAN ORO Room #: 150-6 ADM IN M.R.#: [id number] Admission: 06/23/17 Attend Phys: Mic Monsalve MD Discharge: Date of : 37 Report #: [id number] THIS REPORT FOR: //name// CC: Clayton Monsalve DATE OF SERVICE: 06/23/2017 DATE OF SERVICE: 06/23/2017 PREOPERATIVE DIAGNOSIS: Left knee degenerative joint disease, severe. POSTOPERATIVE DIAGNOSIS: Left knee degenerative joint disease, severe. PROCEDURE: Left total knee arthroplasty. SURGEON: Mic Monsalve MD NET APPLICATIONS DEVELOPER: Hansa Jacobson. INDICATIONS FOR NET APPLICATIONS DEVELOPER: During the course of operation, extensive manipulation, retraction and limb positioning was required. This was afforded to me by my porcelain buildup assistant. ANESTHESIA: General. INDICATIONS: See hospital H and P. IMPLANTS UTILIZED: We used the [employer] knee system. We used a cruciate retaining press fit femoral component Legion size 5. We used a size 4 tibial tray with a 12 mm spacer and a 35 mm ____ patella. DESCRIPTION OF PROCEDURE: After adequate general anesthesia had been obtained, the patient's left lower extremity was prepped and draped in the usual meticulous sterile fashion. Limb was gravity exsanguinated and tourniquet inflated to 300 torr. Anterior midline incision was made, subQ divided sharply. Hemostasis obtained with electrocautery. Medial parapatellar incision was made. Infrapatellar fat pad excised. The knee was flexed, the drill was used to drill the distal femur. This hole was enlarged, irrigated, suctioned, and the intramedullary guide placed the full length of the femur. Distal femoral cutting guide pinned at the appropriate height, distal femoral cut was made. We did cut at valgus angle of 7, which seemed to match her anatomy. We used a measuring device to determine the size 5 as appropriate size for her femur. We then put the cutting guide into position and the anterior, posterior and chamfer cuts were made. At this time, the ACL was transected, tibia translated [facility] [address] [place] [address] OPERATIVE REPORT Name: PREETHIESTEBAN JACKIE Room #: 150-6 ADM IN M.R.#: [id number] Admission: 06/23/17 Attend Phys: Mic Monsalve MD Discharge: Date of : 37 Report #: [id number] anteriorly, menisci were excised. The drill was used to drill central portion of the tibia. This hole was enlarged, irrigated, suctioned, and the intramedullary guide placed the full length of tibia. Proximal tibial cutting guide was placed at appropriate height. Proximal tibial cut was made. The 4 tray gave us the best coverage on the tibia. With the trial components in position with a 12 spacer, she had the best flexion and extension gap. She has a little tight in extension, so we released the IT band and this resulted in improved balance. We then measured the patella, cutting guide clamped into position patellar cut was made, 35 template gave us the best coverage. Pedicles were drilled, trial component in position, it tracked normally. At this time, the femur was punched. Tibial keel cuts were made. Knee was irrigated with both pulse lavage and antibiotic irrigation. We placed bone plugs in the proximal tibia and distal femur. The cement was vacuum mixed and when it reached the appropriate consistency, the knee was thoroughly dried, the tibial tray was cemented in place. Excess cement was removed. The polyethylene was impacted into place and the femur was impacted in place and the knee was taken out to 30 degrees of flexion, uniform compression placed across components. Patellar button was then cemented into place and again excess cement was removed. We allowed the cement to fully cure. When it had done so, we irrigated, dried thoroughly, and inspected. Drains were placed superolaterally both deep and superficial. Retinacular layer closed with combination of interrupted sovfwu-ck-sonsg #1 Vicryl as well as running #1 Tevdek. SubQ was closed with 2-0 Monocryl, skin closed with josef. Sterile compressive dressing applied. Tourniquet was then deflated. By: [id number] Mic Monsalve MD /nt
--- NOTE | ~2017-06-23 | EKG ---
[address] [address] ELECTROCARDIOGRAM REPORT Name: ESTEBAN ORO Room #: PRE IN [facility].#: [id number] Admission: Attend Phys: Mic Monsalve MD Discharge: Date of : 39 Report #: [id number] THIS REPORT FOR: //name// [facility] Test Date: 2017-06-15 Test Time: 09:25:57 Pat Name: ESTEBAN MIMSAYDINCINDY Department: Room: Gender: F Roof Technician: nito : 1935 Requested By: Mic Monsalve Order Number: [id number] MD: Osei Barr Measurements Intervals [place] Rate: 66 P: -17 KS: 131 QRS: 39 QRSD: 100 T: 73 QT: 409 QTc: 429 Interpretive Statements Sinus rhythm Probable LVH with secondary repol abnrm Compared to ECG 12/12/2016 11:16:03 Ectopic atrial rhythm no longer present Myocardial infarct finding no longer present Electronically Signed On 06-15-2017 11:39:41 CDT by Osei Barr [email or web address] <ELECTRONICALLY SIGNED> By: Osei Barr MD 06/15/17 1139 4 4 Osei Barr MD /MARGIE
[2017-06-23 09:17] LABS: PROTIME 10.2 Seconds (9.3-11.4)
[2017-06-23 10:23] VITALS: BP 156/64
[2017-06-23 15:15] VITALS: BP 130/51
[2017-06-23 15:45] VITALS: BP 127/43
[2017-06-23 16:45] VITALS: BP 124/48
[2017-06-23 17:45] VITALS: BP 138/53
[2017-06-23 21:18] VITALS: BP 130/48
[2017-06-24 00:50] VITALS: BP 130/63
[2017-06-24 04:27] VITALS: BP 124/47
[2017-06-24 06:15] LABS: HEMATOCRIT 27.5 % (37.0-47.0); HEMOGLOBIN 8.9 gm/dL (12.0-15.0); MCH 28.6 pg (26.0-34.0); MCHC 32.4 g/dL (28.0-37.0); MCV 88.3 fL (80.0-100.0); PLATELET COUNT 243 thou/uL (150-400); RBC 3.11 mil/uL (4.20-5.00); RDW 15.2 % (10.5-14.5); WBC 12.4 thou/uL (4.0-11.0)
[2017-06-24 06:19] LABS: MANUAL DIFF YES
[2017-06-24 06:21] LABS: PROTIME 10.4 Seconds (9.3-11.4)
[2017-06-24 06:33] LABS: ALBUMIN 2.6 g/dL (3.4-5.0); CALCIUM 8.7 mg/dL (8.5-10.1); CREATININE 1.2 mg/dL (0.6-1.0); POTASSIUM 4.2 mmol/L (3.5-5.1); TOTAL BILIRUBIN 0.3 mg/dL (<0.1-1.0); TOTAL PROTEIN 5.7 g/dL (6.4-8.2)
[2017-06-24 07:54] VITALS: BP 166/65
[2017-06-24 08:47] LABS: ABSOLUTE NEUTROPHILS 9.2 thou/uL (1.4-8.2); METAMYELOCYTES 1 %; TOTAL CELL COUNT 100
[2017-06-24 08:48] LABS: ANISOCYTOSIS 1+; POLYCHROMASIA OCCASIONAL
[2017-06-24 15:00] VITALS: BP 157/58
[2017-06-24 19:20] VITALS: BP 169/62
[2017-06-25 04:20] VITALS: BP 134/46
[2017-06-25 06:06] LABS: HEMATOCRIT 28.7 % (37.0-47.0); HEMOGLOBIN 9.3 gm/dL (12.0-15.0); MCH 28.7 pg (26.0-34.0); MCHC 32.5 g/dL (28.0-37.0); MCV 88.4 fL (80.0-100.0); RBC 3.24 mil/uL (4.20-5.00); RDW 15.3 % (10.5-14.5); WBC 15.1 thou/uL (4.0-11.0)
[2017-06-25 06:15] LABS: INR 1.1; PROTIME 11.7 Seconds (9.3-11.4)
[2017-06-25] MEDS ORDERED: PERCOCET 10-321 EACH PO (06:45)
[2017-06-25 09:20] VITALS: BP 134/60
[2017-06-25 15:00] VITALS: BP 111/48
[2017-06-25 20:00] VITALS: BP 154/55
[2017-06-26 03:55] LABS: BASOPHILS 0.7 % (0.0-2.0); EOSINOPHILS 2.2 % (0.0-3.0); HEMATOCRIT 26.6 % (37.0-47.0); HEMOGLOBIN 8.7 gm/dL (12.0-15.0); LYMPHOCYTES 14.1 % (24.0-44.0); MCH 28.8 pg (26.0-34.0); MCHC 32.6 g/dL (28.0-37.0); MCV 88.3 fL (80.0-100.0); MONOCYTES 10.7 % (1.0-8.0); PLATELET COUNT 223 thou/uL (150-400); POLYS 72.3 % (36.0-66.0); RBC 3.01 mil/uL (4.20-5.00); RDW 15.2 % (10.5-14.5); WBC 11.1 thou/uL (4.0-11.0)
[2017-06-26 03:57] LABS: MANUAL DIFF NO
[2017-06-26 04:03] LABS: CALCIUM 8.8 mg/dL (8.5-10.1); CREATININE 1.2 mg/dL (0.6-1.0); POTASSIUM 4.3 mmol/L (3.5-5.1)
[2017-06-26 04:07] LABS: INR 1.4; PROTIME 13.8 Seconds (9.3-11.4)
[2017-06-26 04:30] VITALS: BP 135/48
[2017-06-26 08:39] VITALS: BP 128/61
[2017-06-26 16:12] VITALS: BP 146/52
[2017-06-26 19:40] VITALS: BP 155/57
[2017-06-27 04:08] VITALS: BP 175/63
[2017-06-27 04:58] LABS: INR 1.3; PROTIME 13.4 Seconds (9.3-11.4)
[2017-06-27 06:46] VITALS: BP 153/84
[2017-06-27 16:55] VITALS: BP 121/51
[2017-06-27 20:30] VITALS: BP 179/57
[2017-06-28 00:15] VITALS: BP 149/63
[2017-06-28 04:44] LABS: HEMATOCRIT 27.9 % (37.0-47.0); HEMOGLOBIN 9.1 gm/dL (12.0-15.0); MCH 29.1 pg (26.0-34.0); MCHC 32.7 g/dL (28.0-37.0); MCV 88.9 fL (80.0-100.0); RBC 3.14 mil/uL (4.20-5.00); RDW 15.6 % (10.5-14.5); WBC 10.1 thou/uL (4.0-11.0)
[2017-06-28 05:04] LABS: INR 1.3
[2017-06-28 05:20] VITALS: BP 133/59
[2017-06-28 08:00] VITALS: BP 142/47
[2017-06-28 10:32] VITALS: BP 142/47
[2017-06-28] MEDS ORDERED: COUMADIN 4 MG TA4 M1 PO (10:56)
[2017-06-28] MEDS ORDERED: ENOXAPARIN40 MG/0.1 SUBQ (10:56)
[2017-06-28] MEDS ORDERED: IRON325 PO (10:56)
== END 2017-06-28 13:46 | disposition home health service (06) | DRG 469 ==
LOC: PRE 01:48 → TBA 05:25 → 4N 05:25 → PRE 08:08 → 4N 14:15
PROVIDERS: Internal Medicine; Nurse Practitioner; Orthopaedic Surgery
PROC: 0SRD0J9 Replacement of Left Knee Joint with Synthetic Substitute, Cemented, Open Approach (ICD-10-PCS; principal; 2017-06-23)
DX: M17.12 Unilateral primary osteoarthritis, left knee (principal); E43 Unspecified severe protein-calorie malnutrition; I13.0 Hypertensive heart and chronic kidney disease with heart failure and stage 1 through stage 4 chronic kidney disease, or unspecified chronic kidney disease; M54.9 Dorsalgia, unspecified; G89.29 Other chronic pain; I50.9 Heart failure, unspecified; E11.22 Type 2 diabetes mellitus with diabetic chronic kidney disease; J44.9 Chronic obstructive pulmonary disease, unspecified; N18.9 Chronic kidney disease, unspecified; G47.33 Obstructive sleep apnea (adult) (pediatric); I25.10 Atherosclerotic heart disease of native coronary artery without angina pectoris; K21.9 Gastro-esophageal reflux disease without esophagitis; F32.9 Major depressive disorder, single episode, unspecified; F41.9 Anxiety disorder, unspecified; E11.43 Type 2 diabetes mellitus with diabetic autonomic (poly)neuropathy; K31.84 Gastroparesis; I25.2 Old myocardial infarction; Z87.442 Personal history of urinary calculi; Z88.1 Allergy status to other antibiotic agents; Z88.8 Allergy status to other drugs, medicaments and biological substances; Z91.040 Latex allergy status; Z99.81 Dependence on supplemental oxygen; Z86.711 Personal history of pulmonary embolism; Z86.718 Personal history of other venous thrombosis and embolism; Z95.1 Presence of aortocoronary bypass graft; Z95.5 Presence of coronary angioplasty implant and graft; Z72.0 Tobacco use
CPT/HCPCS: 10790; 50010; 50101; 50415; 50954; 51130; 51225; 51320; 51412; 51771; 52001; 53000; 53078; 53365; 56525; 56527; 62110; 62900; 64042; 70005

== ENCOUNTER → 2017-08-31 | Outpatient (CLI) | payer OTHER ==
[~2017-08-31] VITALS: Ht 167.6 cm; Wt 101.6 kg
[~2017-08-31] MED LIST changes: +COUMADIN 1MG TAB1 M1 PO; +ENOXAPARIN40 MG/0.1 SUBQ; +IRON325 PO; +PERCOCET 7.5-31 EACH PO
--- NOTE | ~2017-08-31 | HPC ---
[address] [address] PAIN MANAGEMENT CONSULTATION Name: ESTEBAN ORO Room #: REG [facility] Jacob#: [id number] Admission: 08/31/17 Attend Phys: Jorje Jha DO Discharge: Date of : 37 Report #: [id number] THIS REPORT FOR: //name// CC: Clayton Jha The patient is an 82-year-old female, well known to the pain clinic, typically treated for multiple pain issues including symptomatic lumbosacral spondylosis, lumbar radiculopathy secondary to spinal stenosis. The patient had done well with radiofrequency neurolysis, L3, L4, L5 (right side) in May for axial back pain, returns with ongoing left low back pain radiating down the leg. SI joint injection 08/17/2017, afforded no good relief. The patient returns today, we had a prolonged visit, greater than 30 minutes was spent face to face with counseling the patient. We did also send the patient for an x-ray, which was accomplished today. She notes the pain is in the right gluteal area, posterior hip and down the posterior thigh. Pain is exacerbated with standing, walking, and bending. She has significant neurogenic claudication radiating, aching, and burning pain, she rates a 4-5 on a VAS with current medication; again activity, standing or walking significantly exacerbates her pain. PHYSICAL EXAMINATION: Shows an 82-year-old female, BMI is elevated 36.2 kg/m2, fairly deconditioned, she is in a wheelchair presently, though she can rise for her exam, she does ambulate around her house. Blood pressure 131/56, pulse 60, respirations 14. Again, lumbar flexion is limited. Markedly antalgic gait. Some tenderness of the SI joints, so it is not discrete pain with rotation of the hip, though radicular pain seems to eclipse this. I did order x-rays of the left hip and pelvis, I personally reviewed those images and discussed this with the patient. X-ray of the hip does note preserved space between the femur and the acetabulum, though it does appear to be diminished primarily in the inferior aspect. There is some hypertrophy at the cortex. ASSESSMENT: Symptomatic lumbar radiculopathy secondary to spinal stenosis in a patient who has a neurogenic claudication pain in a right L4-L5 pattern. MRI, albeit somewhat dated from July 2015, notes severe central stenosis at L4-L5 down to about 0.47 cm. RECOMMENDATIONS: Discussion with the patient today about therapeutic options. Continue current medication including Percocet 7.5/325 for breakthrough pain, methadone 10 mg 2 in the morning, 1 at noon, 1 at night. Hold Coumadin for 5 days, we will plan on left L4-L5 transforaminal epidural injection at next visit. [address] [address] PAIN MANAGEMENT CONSULTATION Name: DONNACINDYESTEBAN Room #: REG [facility] Nidia#: [id number] Admission: 08/31/17 Attend Phys: Jorje Jha DO Discharge: Date of : 37 Report #: [id number] Discharged in good and stable condition after a prolonged visit, greater than 30 minutes was spent face to face with the patient and most of this time spent counseling. <ELECTRONICALLY SIGNED> By: Jorje Jha DO 09/04/17 0943 1306 1539 Jorje Jha DO /nt
[2017-08-31 10:55] VITALS: BP 131/56
== END ==
LOC: PAIN 06:47
DX: M16.12 Unilateral primary osteoarthritis, left hip (principal); M48.061 Spinal stenosis, lumbar region without neurogenic claudication; M54.16 Radiculopathy, lumbar region

== ENCOUNTER → 2017-09-03 | Outpatient (CLI) | payer OTHER ==
[~2017-09-03] VITALS: Ht 167.6 cm; Wt 101.6 kg
--- NOTE | ~2017-09-03 | HPC ---
[facility] [place] [address] PAIN MANAGEMENT CONSULTATION Name: ESTBEAN ORO Room #: REG [facility] Jacob#: [id number] Admission: 09/03/17 Attend Phys: Jorje Jha DO Discharge: Date of : 37 Report #: [id number] THIS REPORT FOR: //name// CC: Clayton Jha The patient is a pleasant 82-year-old female, prior seen in the pain clinic 08/31/2017, diagnosed symptomatic lumbar radiculopathy secondary to spinal stenosis, component of lumbar spondylosis as well. We sought authorization for left L4-L5 transforaminal epidural injection. The patient presents to pain clinic today for said injection, she has been off her Coumadin for 5 days, INR is 1.0. Ongoing pain, the patient notes 4-5 on a VAS, left hip and low back. ASSESSMENT: Symptomatic lumbar radiculopathy secondary to spinal stenosis. PROCEDURE: Left L4-L5 transforaminal epidural injection under fluoroscopy. ROCEDURE NOTE: After both written and informed consent was obtained including risk of spinal cord damage, infection, increased pain and paralysis, the patient agreed to proceed. The patient was taken to the fluoroscopy suite, placed in a prone position with appropriate abdominal bolstering. After sterile prep with ChloraPrep and sterile drape, a skin wheal with 1% Xylocaine was raised. A 22 gauge 4-1/2 inch epidural Tuohy needle was inserted. From an oblique approach into the posterior-superior aspect of the left L4-L5 neural foramen with continuous pressure on the glass syringe plunger for loss of resistance. Glass syringe was filled with 2 cc of 0.1 Xylocaine. The glass loss of resistance syringe was removed. A low volume extension tubing was connected, negative aspiration was accomplished for cerebrospinal fluid or blood. 1 mL of Omnipaque was injected which showed spread both within the epidural space and laterally along the nerve root. This was followed with 80 mg of triamcinolone plus 1 mL of 1.5% preservative-free Xylocaine. Needle was partially withdrawn, 0.5 mL of Xylocaine was injected to clear the needle and the needle was removed. The area was cleansed, band-aid was applied. The patient was allowed to ambulate to the recovery room, discharged in good and stable condition. By: 0850 1415 Jorje Jha DO /nt
[2017-09-03 14:53] VITALS: BP 170/75
[2017-09-03 15:45] LABS: PROTIME 10.6 Seconds (9.3-11.4)
== END | disposition home or self-care (01) ==
LOC: PAIN 07:23
PROVIDERS: Anesthesiology Pain Medicine
DX: M51.16 Intervertebral disc disorders with radiculopathy, lumbar region (principal); Z87.891 Personal history of nicotine dependence

== ENCOUNTER → 2017-11-06 | Outpatient (CLI) | payer OTHER ==
[~2017-11-06] VITALS: Ht 165.1 cm; Wt 101.6 kg
[~2017-11-06] MED LIST changes: +ALBUTEROL2.5 MG/31 INH; +ARICEPT10 MG PO; +B12INJ; +BACLOFEN 10MG T10 MG PO; +CEFDINIR300 MG PO; +DELSYM COU30 MG/5 M1 PO; +DEMADEX20 MG PO; +DILAUDID 2 MG TA2 MG PO; +IBUPROFEN 200200 M1 PO; +LUTEIN20 M1 PO; +LUTEIN40 MG; +METHADONE HCL5 MG PO; +TRELEGY ELLIPT1 EACH INH; +VITAMIN B; +VITAMIN D2400 UNIT PO; +[UNRECOGNIZED DRUG - OTHER]
--- NOTE | ~2017-11-06 | HPC ---
[facility] [place] [address] PAIN MANAGEMENT CONSULTATION Name: ESTEBAN ORO Room #: REG [facility] Jacob#: [id number] Admission: 11/06/17 Attend Phys: Jorje Jha DO Discharge: Date of : 37 Report #: [id number] THIS REPORT FOR: //name// CC: Clayton Jha The patient is an 82-year-old female, last seen in the pain clinic on 09/03/2017. We did a left L4-L5 transforaminal epidural injection off Coumadin. She returns to the pain clinic today noting pain continues to be problematic, though medications are helpful. She rates the pain at 5-6 on a VAS. She actually looks better today than she has in some time. She has not fallen in the last 3 months. She is on Coumadin for a valve disorder. She has a history of hypertension. Medication list was reconciled. Vital signs are stable as noted in the EMR. BMI is elevated at 37.3 kilograms per meter squared. Her opiate consent to treat contract was renewed and signed again today. Pain impact score is 16/70. Risk assessment tool scores are in the low risk category. She uses a walker at home. Has some issues with balance, but she has not fallen. Her rate limiting factor for activity is her pulmonary function. She is on supplemental oxygen at 2 liters per minute (oxygen saturation 96% with this). Discussion with the patient today about therapeutic options. She would like to increase her opiate analgesic, she does take methadone 10 mg 2 tablets in the morning, 1 at noon, 1 at night; 40 mg of methadone at a minimum being equivalent to 160 mg of morphine; Percocet 7.5/325, up to 4 a day; 30 mg of oxycodone equivalent to another 45 mg of morphine yielding a total daily load of 205 mg morphine equivalents. I discussed at length with the patient my concern that particularly with COPD and supplemental oxygen, higher dose of opiates could easily exacerbate issues with CO2 retention and slight narcotization producing a soporific type effect. PHYSICAL EXAMINATION: Shows some diffuse tenderness across the low back. Lower extremity strength is diminished, but symmetric. We have done multiple interventions including the aforementioned left L4-L5 transforaminal epidural injection at last visit. We have done RFL right lumbar (L3, L4, L5) earlier in August. SI joint injection back in July. All these have afforded incremental relief. She is doing reasonably well at this time. We reviewed the fact that opiate medications are being used to provide analgesia adequate to support activities of daily living, not attempting to achieve a specific pain score on the 0-10 Visual Analog Scale[place] [address] PAIN MANAGEMENT CONSULTATION Name: ESTEBAN ORO Room #: REG [facility] Jacob#: [id number] Admission: 11/06/17 Attend Phys: Jorje Jha DO Discharge: Date of : 37 Report #: [id number] medications are providing sufficient analgesia to allow the patient to participate in activities of daily living. The patient is not exhibiting any aberrant behavior suggestive of drug diversion. The patient is not having any adverse reactions to medications. The patient is not suffering from daytime somnolence or mental acuity changes. The patient is managing opiate-induced constipation with appropriate vwus-ezc-qxkmpuv agents and dietary considerations. The patient was counseled on concern for caution with operating a motor vehicle while using opiate medications. A physical exam was performed and the patient's functional status was evaluated. All patients with back pain were advised against the bed rest greater than 4 days and were advised to return to normal activities. Pain score assessment was noted and the treatment plan was reviewed with the patient. All current medications, both prescribed and OTC were reviewed and reconciled on the electronic medical record. Tobacco screening was accomplished and smoking cessation was advised when indicated. BMI was noted and diet/exercise modification was recommended for all patients following outside normal parameters. I reviewed with the patient today their responsibilities to safeguard prescription medications, reviewed their responsibility to utilize medications only as prescribed by the physician. They are to seek and receive pain medications only from 1 physician group ( [facility]). They are to use 1 pharmacy and keep the clinic informed if they change pharmacies. Their responsibilities include making followup visits in a timely fashion and to avoid abrupt discontinuation of medication usage. Their responsibilities further include bringing their medications (bottles from the pharmacy with residual pills) to the visit for possible confirmation of pill counts and the patient understands it is their responsibility to submit to random drug screens to ensure both that the medications prescribed are present, and that no other controlled substances are present. All prescriptions provided today were generated electronically. ASSESSMENT: Lumbar radiculopathy, lumbar spondylosis, spinal stenosis and chronic obstructive pulmonary disease, requiring high risk complex medication management. RECOMMENDATIONS: After a long discussion with the patient today, in fact, she was seen for approximately 30 minutes, greater than 50% of the time spent reviewing therapeutic options, discussing risks, concerns and benefits of medication. We elected to review the opiate consent to treat contract and continue baseline medication unchanged. I have taken the liberty of writing for [address] [address] PAIN MANAGEMENT CONSULTATION Name: ESTEBAN ORO Room #: REG [facility] Jacob#: [id number] Admission: 11/06/17 Attend Phys: Jorje Jha DO Discharge: Date of : 37 Report #: [id number] 2 months of methadone 10 mg 2 in the morning, 1 at noon, 1 at night and Percocet 7.5/325, up to 4 a day. Follow up in 2 months for reevaluation. <ELECTRONICALLY SIGNED> By: Jorje Jha DO 11/11/17 0725 1533 56 Jorje Jha DO /nt
[2017-11-06 09:51] VITALS: BP 127/62
== END ==
LOC: PAIN 07:19
DX: M54.16 Radiculopathy, lumbar region (principal); M47.896 Other spondylosis, lumbar region; M48.061 Spinal stenosis, lumbar region without neurogenic claudication; Z79.899 Other long term (current) drug therapy

== ENCOUNTER 2017-11-21 21:18 | Inpatient (IN) | payer OTHER ==
[~2017-11-21] VITALS: Ht 167.6 cm; Wt 106.6 kg
--- NOTE | ~2017-11-21 | HC ---
[facility] [place] [address] CONSULTATION Name: ESTEBAN ORO Room #: 436-P ADM IN M.R.#: [id number] Admission: 11/22/17 Attend Phys: Emiliano Ramsey MD Discharge: Date of : 37 Report #: [id number] THIS REPORT FOR: //name// CC: Emiliano Castillo DATE OF SERVICE: 11/22/2017 REFERRING PROVIDER: Emiliano Ramsey MD REASON FOR CONSULTATION: Pneumonia. CHIEF COMPLAINT: Shortness of breath. HISTORY OF PRESENT ILLNESS: Our group was asked to evaluate the patient in consultation while hospitalized at [facility], well known to me from prior office visits, recently treated with prednisone, azithromycin for a cough and lower respiratory infection. The patient continues to have shortness of breath, dull, sharp pain and also headaches worsen with coughing, also has ongoing cough, minimal sputum production. No fevers, chills or sweats, presented to the Emergency Department due to lack of improvement, been using her home aerosol therapy 3-4 times daily, also 2 different daughters with whom she lives also with ongoing similar complaints. ALLERGIES: Include MORPHINE, DOXYCYCLINE, TIZANIDINE, CITALOPRAM, CODEINE, DOXYCYCLINE. PAST MEDICAL HISTORY: 1. COPD. 2. Atrial fibrillation. 3. Prior DVT, PE. 4. History of atrial fibrillation. 5. Coronary artery disease with coronary artery bypass grafting in 2011. 6. Hypertension. 7. Diabetes mellitus type 2. 8. Gastroparesis. 9. Hyperlipidemia. 10. Nephrolithiasis. 11. Prior cataract surgery. 12. Gastroesophageal reflux disease. 13. Sleep apnea, on CPAP at bedtime. 14. Chronic hypoxemic respiratory failure. 15. Peripheral vascular disease. SOCIAL HISTORY: Ex-smoker. No alcohol consumption. Lives with her daughters [facility] [address] [place] [address] CONSULTATION Name: ESTEBAN ORO JACKIE Room #: 436-P [facility] IN .R.#: [id number] Admission: 11/22/17 Attend Phys: Emiliano Ramsey MD Discharge: Date of : 39 Report #: [id number] who have chronic ailments as well. FAMILY HISTORY: Noncontributory due to advanced age. OUTPATIENT MEDICATIONS: Include an oral inhaler daily, tamsulosin 0.4 daily, albuterol p.r.n., Aricept 10 mg daily, Lexapro 10 mg daily, vitamin B12, amlodipine 5 mg daily, Cymbalta 60 mg daily, Lutein 20 mg daily, Singulair 10 mg daily, trazodone 50 mg daily, Levemir, Protonix, warfarin, losartan 50 daily, Lasix 40 mg daily, Lipitor 20 mg daily, nebivolol 5 mg daily. REVIEW OF SYSTEMS: CONSTITUTIONAL: No fever or chills. ENT: Some headaches, no upper respiratory congestion. CARDIOVASCULAR: No history of atrial fibrillation. No chest pains or palpitations. GASTROINTESTINAL: No nausea or vomiting. GENITOURINARY: No dysuria, no frequency. INTEGUMENT: Denies any rash. MUSCULOSKELETAL: No joint pains or swelling. PULMONARY: Described in HPI. PHYSICAL EXAMINATION: VITAL SIGNS: Afebrile, pulse 60s, respiratory rate 16, blood pressure 156/87, oxygen saturation 98%. GENERAL: This is an elderly woman, does not appear in any distress. ENT: Clear oropharynx. No thrush. NECK: Supple, no lymphadenopathy. LUNGS: Diminished with only occasional wheezes. CARDIOVASCULAR: Heart was regular. No murmurs noted. ABDOMEN: Soft, nontender, no masses. EXTREMITIES: With only trace to 1+ edema. LABORATORY DATA: Chest x-ray reveals some hyperinflation consistent with COPD, mild cardiomegaly noted. No infiltrates or effusions appreciated. White blood cell count 11,000; hemoglobin 11; hematocrit 32, platelet count 280. Sodium 141, potassium 4.5, chloride 103, bicarbonate 33, BUN 35, creatinine 1.4, glucose 140, troponin less than 0.04. BNP 430. Arterial blood gas on 2 liters revealed pH 7.39, pCO2 of 41, pO2 of 85, bicarbonate 24. INR is 5. IMPRESSION: 1. Dyspnea, likely related to chronic obstructive pulmonary disease exacerbation. 2. Permanent atrial fibrillation. 3. Chronic obstructive pulmonary disease with acute exacerbation. 4. Diabetes mellitus [place] 2[place] [address] CONSULTATION Name: ESTEBAN ORO [facility] Room #: 436-P [facility] IN M.R.#: [id number] Admission: 11/22/17 Attend Phys: Emiliano Ramsey MD Discharge: Date of : 37 Report #: [id number] SUGGEST: 1. Systemic steroids with taper. 2. Continue with current antibiotic therapy. The patient to be on levofloxacin. 3. Hold warfarin given supratherapeutic INR. 4. Consider evaluation by Cardiology, Dr. Holloway, her flexo folder gluer operator. 5. We will follow along with you. Thank you for requesting our suggestions. <ELECTRONICALLY SIGNED> By: Mk Bauer MD 11/23/17 1502 1324 1914 Mk Bauer MD /nt
--- NOTE | ~2017-11-21 | HC ---
[facility] [place] [address] CONSULTATION Name: ESTEBAN ORO JACKIE Room #: 436-P [facility] IN M.R.#: [id number] Admission: 11/22/17 Attend Phys: Emiliano Ramsey MD Discharge: 11/27/17 Date of : 39 Report #: [id number] THIS REPORT FOR: //name// CC: Emiliano Castillo DATE OF SERVICE: 11/22/2017 REASON FOR CONSULTATION: Chest pain. HISTORY OF PRESENT ILLNESS: The patient is an 82-year-old female with history of COPD, coronary artery disease, status post CABG, obstructive sleep apnea, diabetes, hyperlipidemia, hypertension, prior DVT and PE on Coumadin, who presents with several days of increasing shortness of breath and wheezing. She has also had some substernal chest pain, feels like a tightness, which is worse when she coughs, and she has been having a lot of coughing lately. She denies any PND or orthopnea. She denies presyncope or syncope. REVIEW OF SYSTEMS: A 12-point review of systems was performed and is negative other than what I mentioned above. PAST MEDICAL HISTORY: As noted above. SOCIAL HISTORY: She is a former smoker. FAMILY HISTORY: Significant for coronary artery disease in her brother. ALLERGIES: Have been reviewed. MEDICATIONS: Have been reviewed. PHYSICAL EXAMINATION: VITAL SIGNS: Temperature 36.4, pulse 75, respirations 20, blood pressure 189/90, sats are 96%. GENERAL: She is in no acute distress, sitting up in bed. HEENT: Oropharynx is clear. Sclerae are anicteric. NECK: Supple. No thyromegaly. HEART: Regular rate and rhythm with normal S1 and S2. She does not have elevated JVD. LUNGS: Exhibit diffuse wheezes bilaterally. ABDOMEN: Soft, nontender. EXTREMITIES: No clubbing, cyanosis, edema. NEUROLOGIC: Cranial nerves 2-12 are intact. LABORATORY DATA: A 12-lead EKG shows sinus rhythm with LVH and no ischemic changes. Chest x-ray shows no pulmonary edema. [facility] [address] [facility] [place] [address] CONSULTATION Name: ESTEBAN ORO [facility] Room #: 436-[facility] IN M.R.#: [id number] Admission: 11/22/17 Attend Phys: Emiliano Ramsey MD Discharge: 11/27/17 Date of : 39 Report #: [id number] LABORATORY DATA: White count 10, hemoglobin 10, platelets 280. Coags: INR 5.0. Chemistry: Potassium is 4.5, creatinine 1.4. Troponins negative x 2. ProBNP 430. IMAGING: Chest x-ray shows no acute process. ASSESSMENT AND PLAN: 1. Chest pain. 2. Coronary artery disease. 3. Chronic obstructive pulmonary disease exacerbation. 4. Obstructive sleep apnea. 5. Hypertension. 6. Deep venous thrombosis and pulmonary embolism. 7. Elevated INR. 8. Morbid obesity. In summary, the patient is an 82-year-old female with history of coronary artery disease, presenting with likely chronic obstructive pulmonary disease exacerbation and has some chest discomfort. This does not sound cardiac in nature and may be due to her excessive coughing. Troponins are negative. I have recommended an echocardiogram in the morning. We will continue to try and optimize her blood pressure, which is poorly controlled. <ELECTRONICALLY SIGNED> By: Osei Barr MD 12/04/17 1750 1207 1815 Osei Barr MD /nt
--- NOTE | ~2017-11-21 | 2DMMODE ---
[facility] [address] [place] [address] 2 D/M-MODE ECHOCARDIOGRAM Name: ESTEBAN ORO JACKIE Room #: 436-P ADM IN M.R.#: [id number] Admission: 11/22/17 Attend Phys: Emiliano Ramsey MD Discharge: Date of : 39 Date of Service: 11/23/17 0853 Report #: [id number] THIS REPORT FOR: //name// APPROVED REPORT Study performed: 11/23/2017 08:16:21 EXAM: Comprehensive 2D, Doppler, and color-flow Echocardiogram Patient Location: Echo lab Room #: 436 Status: routine BSA: 2.14 HR: 94 bpm BP: 219/100 mmHg Rhythm: NSR/Irregular Other Information Study Quality: Good Indications Short of breath. Hx: CABG, stent, COPD 2D Dimensions RVDd: 39.52 mm LVEF(%): 63.70 (>50%) IVSd: 12.12 (7-11mm) LVOT Diam: 20.64 (18-24mm) LVDd: 49.09 mm PWd: 12.29 (7-11mm) Ascending Ao: 39.55 (22-36mm) LVDs: 32.05 (25-40mm) Aortic Root: 33.75 mm Pedroza's LVEF: 63.70 % Volumes Left Atrial Volume (Systole) Single Plane 4CH: 54.13 mL Single Plane 2CH: 50.66 mL LA ESV Index: 26.00 mL/m2 Aortic Valve AoV Peak Uriah.: 1.81 m/s AO Peak Gr.: 13.11 mmHg LVOT Max P.28 mmHg LVOT Max V: 1.52 m/s MARI Vmax: 2.81 cm2 Mitral Valve E/A Ratio: 0.8 MV Decel. Time: 136.07 ms [facility] [place] [address] 2 D/M-MODE ECHOCARDIOGRAM Name: ESTEBAN ORO [facility] Room #: 436-P [facility] IN .R.#: [id number] Admission: 11/22/17 Attend Phys: Emiliano Ramsey MD Discharge: Date of : 39 Date of Service: 11/23/17 0853 Report #: [id number] MV E Max Uriah.: 1.06 m/s MV A Uriah.: 1.25 m/s MV PHT: 39.46 ms IVRT: 72.66 ms Pulmonary Valve PV Peak Uriah.: 1.34 m/s PV Peak Gr.: 7.18 mmHg Pulmonary Vein P Vein S: 0.89 m/s P Vein A: 0.42 m/s P Vein D: 0.50 m/s P Vein A Dur.: 103.8 msec P Vein S/D Ratio: 1.78 Tricuspid Valve TR Peak Uriah.: 2.57 m/s RAP Estimate: 5.00 mmHg TR Peak Gr.: 26.46 mmHg PA Pressure: 31.00 mmHg Left Ventricle The left ventricle is normal size. There is normal LV segmental wall motion. Mild concentric left ventricular hypertrophy. Left ventricular systolic function is normal. LVEF is 65%. Mild diastolic dysfunction is present (impaired relaxation pattern). Right Ventricle The right ventricle is normal size. The right ventricular systolic function is normal. Atria The left atrium size is normal. The right atrium size is normal. Aortic Valve The aortic valve is normal in structure. No aortic regurgitation is present. There is no aortic valvular stenosis. Mitral Valve Mitral valve leaflets are thickened and calcified. Mild mitral annular calcification. Trace mitral regurgitation. Tricuspid Valve The tricuspid valve is normal in structure. Trace to mild tricuspid regurgitation. Estimated PAP is 30-35mmHg. Pulmonic Valve The pulmonary valve is normal in structure[place] [address] 2 D/M-MODE ECHOCARDIOGRAM Name: ESTEBAN ORO [facility] Room #: [address] [place] [address] IN ..#: [id number] Admission: 11/22/17 Attend Phys: Emiliano Ramsey MD Discharge: Date of : 39 Date of Service: 11/23/17 0853 Report #: [id number] regurgitation. Great Vessels The aortic root is normal in size. The ascending aorta is mildly dilated. IVC is normal in size and collapses >50% with inspiration. Pericardium There is no pericardial effusion. <Conclusion> Left ventricular systolic function is normal. There is normal LV segmental wall motion. LVEF is 65%. Mild diastolic dysfunction The aortic valve is normal in structure. No aortic regurgitation or stenosis Mitral valve leaflets are thickened and calcified. Mild mitral annular calcification. Trace mitral regurgitation. Trace to mild tricuspid regurgitation. Estimated pulmonary artery pressure is 30-35mmHg. There is no pericardial effusion. <ELECTRONICALLY SIGNED> By: Oc Holloway MD, FACC 11/23/1753 Oc Holloway MD, FACC /INF
--- NOTE | ~2017-11-21 | HC ---
[facility] [place] [address] [place] [address] CONSULTATION Name: PREETHIESTEBAN JACKIE Room #: 436-P [facility] IN M.R.#: [id number] Admission: 11/22/17 Attend Phys: Emiliano Ramsey MD Discharge: 11/27/17 Date of : 39 Report #: [id number] THIS REPORT FOR: //name// CC: Emiliano Castillo DATE OF SERVICE: 11/25/2017 REASON FOR CONSULTATION: Elevated creatinine level. HISTORY OF PRESENT ILLNESS: This is an 82-year-old female who is here for one of her many hospitalizations here at [facility]. She came in 3 days ago with progressive dyspnea, cough, chronic pain and exacerbation of her COPD. All of these problems have been well outlined in the numerous other notes during this hospitalization. She has been on extensive treatment for her COPD. She has gotten blood pressure control as well as diuresis. During this time, her creatinine level obed from 1.4 on admission to 1.8 yesterday. We are consulted today as its level is still at 1.8. The patient knows that she has been seen at least once previously years ago by a dental instructor, but she does not remember whom nor where. Looking back through her records, for the past 8 years she has generally run creatinine levels in the 1.5-1.8 range, occasionally as low as 1.2 and occasionally as high as about 2.3. She has had longstanding hypertension. She has been on numerous medications for that. When she came in at this time, she has multiple blood pressures recorded as high as the 230s over 100 range after being in the 160-190 range on admission. She has received medication for that and is now down in the 130-150 systolic range with diastolics 50-70. Home medications for blood pressure look to include amlodipine 5 mg daily, losartan 50 mg daily, furosemide 40 mg daily and some nebivolol 5 mg daily. When she came in here, she was put on amlodipine, some furosemide, p.r.n. hydralazine, losartan 50 mg daily, which is actually less than her 100 mg daily she was on last fall and that has now been held with the rise in creatinine. Nebivolol has been continued. Additionally, the patient has a history of extensive vascular disease. She has had numerous coronary stents placed. She had a previous right renal artery stent placed. I am uncertain on the timing of that, but it was present a couple of years ago on a CT scan. She does not remember the indication for that whether it was uncontrolled hypertension or whether it was a truly ischemic kidney. She also has a history of nephrolithiasis. She has had at least two episodes previously that required lithotripsy. Her last CT scan showed one stone, which was not an active stone. There was no hydronephrosis. She has nothing to suggest stone symptoms at this time. She has not received any nonsteroidals. She rarely takes one at home if she has a headache. She chronically has some edema, but states that actually gotten better with the diuresis here in the hospital. [facility] [address] [place] [address] CONSULTATION Name: ESTEBAN ORO JACKIE Room #: 436-P DIS IN M.R.#: [id number] Admission: 11/22/17 Attend Phys: Emiliano Ramsey MD Discharge: 11/27/17 Date of : 39 Report #: [id number] PAST MEDICAL HISTORY: Longstanding severe COPD with multiple hospitalizations related to that. She also has a history of paroxysmal atrial fibrillation, prior deep venous thrombosis and pulmonary emboli. She has coronary artery disease with multiple prior stents and then a 5-vessel coronary artery bypass graft surgery done here at [facility] in 2011. She has had the hypertension as noted above, type 2 diabetes and chronic pain which is a real problem is back pain. She is on chronic methadone therapy for that. She also has sleep apnea and supposedly wears her CPAP. She has hyperlipidemia and some peripheral vascular disease. I would note that her prior CT scan showed numerous calcific vessels. MEDICATIONS: Warfarin 10 mg daily, montelukast 10 mg daily, tamsulosin 0.4 mg at bedtime, duloxetine 60 mg b.i.d., carbamazepine 200 mg b.i.d., donepezil 10 mg daily, nebivolol 10 mg daily, Solu-Medrol 40 mg b.i.d., nystatin, Lantus 30 units b.i.d., trazodone 150 mg at bedtime, MiraLax daily, ipratropium and albuterol inhaler, hydralazine p.r.n., levofloxacin, methadone is 20 mg in the morning, 10 at noon and 10 at evening, amlodipine 10 mg daily, aspirin 81 mg daily, pantoprazole 40 mg daily and numerous p.r.n. medications. ALLERGIES: INCLUDE DOXYCYCLINE, MORPHINE, TIZANIDINE, CITALOPRAM, AND CODEINE. FAMILY HISTORY: Negative for renal failure. SOCIAL HISTORY: The patient is a , lives in [place], [place]. She is retired, former smoker. REVIEW OF SYSTEMS: States her breathing is better. She has had worsening dyspnea, cough, chest pain over the past 3 weeks prior to admission, but states she is actually feeling quite a bit better. Chest pain is better. No current palpitations. She says she chronically has some lower extremity edema. She has compression stockings at home, but generally does not wear them. Her chronic pain is mostly in her back. Currently, denies nausea or vomiting. States she voids urine frequently. No dysuria. Has nocturia a couple of times nightly. No symptoms suggesting kidney stones recently. PHYSICAL EXAMINATION: GENERAL: Obese 82-year-old female, awake, alert and oriented in fairly good spirits at this time. VITAL SIGNS: Most recent blood pressure 137/60, heart rate 75, temperature 98.0, respiratory rate 20. Most recent height is 5 feet 6 inches and weight 235 pounds on one check and 280 on the other, so I am uncertain what her actual weight is. HEENT: Shows cushingoid facies. Oral mucosa is negative. NECK: Supple and large. No JVD. CHEST: Shows a few inspiratory and expiratory wheezes posteriorly. No rales or [facility] [address] [place] [address] CONSULTATION Name: ESTEBAN ORO [facility] Room #: 436-P [facility] IN M.R.#: [id number] Admission: 11/22/17 Attend Phys: Emiliano Ramsey MD Discharge: 11/27/17 Date of : 39 Report #: [id number] rhonchi. HEART: Regular rate and rhythm. ABDOMEN: Obese, has active bowel sounds, mild diffuse tenderness, cannot tell if there is actual CVA tenderness as her entire back is tender. EXTREMITIES: Show 1+ bilateral lower extremity edema. LABORATORY DATA: Sodium 138, potassium 5.0, chloride 101, bicarbonate 30, BUN 60, creatinine 1.8, glucose 209 and calcium 8.5. INR 1.6. White count 14.2, hemoglobin 9.4, hematocrit 28.5 and platelets 280,000. No urinalysis on this admission. ASSESSMENT AND PLAN: 1. Chronic kidney disease, stage 3. She has shown a chronically elevated creatinine level, which has great variability. I am certain this is probably due to similar factors as are at play at this time. She has frequent problems with her COPD. She has also had frequent heart problems. She comes in, her blood pressure is up. Her blood pressure gets treated. It dropped this time from systolics of 230 down to systolics of 130-140 with the associated change in her glomerular perfusion and hence her glomerular filtration. In addition, she has undergone some diuresis. Her CKD risk factors include hypertension, diabetes, prior stone disease and atherosclerotic vascular disease including getting a right renal artery stent placed. At this time, her blood pressure is actually fairly well controlled. I think she will need the losartan chronically and I will get her back on the losartan. We will check a urinalysis for completeness. I do not think there is need for other extensive workup at this time. In addition with her severe COPD and some of her right heart physiology when any time she gets diuresed her creatinine is likely to bump up a little bit. She does need to stay off the nonsteroidals at home. Study doses of antihypertensives would be better than p.r.n. doses to avoid the massive swings. In addition, I would note that her BUN is up dramatically associated with her steroids. 2. Chronic obstructive pulmonary disease, severe followed by Dr. Bauer. We will not repeat all factors about that now. 3. Coronary artery disease, multi years past, 5-vessel bypass. 4. Paroxysmal atrial fibrillation. 5. History of deep venous thrombosis on chronic anticoagulation. 6. Diabetes mellitus. We will check for proteinuria. 7. Obesity. 8. Chronic pain. PLAN: 1. We will check a urinalysis and spot urine protein creatinine. 2. Otherwise continue current antihypertensive medications. 3. She would be fine to be back on the losartan and will chronically need some mild diuretics. I actually think if she keeps her creatinine level at 1.8, she [facility] [address] [place] [address] CONSULTATION Name: ESTEBAN ORO Room #: 436-P DIS IN M.R.#: [id number] Admission: 11/22/17 Attend Phys: Emiliano Ramsey MD Discharge: 11/27/17 Date of : 39 Report #: [id number] will be fairly stable long-term. 4. We will follow along as needed with this patient. <ELECTRONICALLY SIGNED> By: Gerald Diaz MD 12/09/17 1142 1859 0645 Dane Devi MD /nt
--- NOTE | ~2017-11-21 | EKG ---
[address] [place] [address] ELECTROCARDIOGRAM REPORT Name: ESTEBAN ORO Room #: 436-P ADM IN M.R.#: [id number] Admission: 11/22/17 Attend Phys: Emiliano Ramsey MD Discharge: Date of : 39 Report #: [id number] THIS REPORT FOR: //name// [facility] ED Test Date: 2017-11-21 Test Time: 22:00:46 Pat Name: ESTEBAN ORO Department: Room: [facility] Gender: F Associate Professor Of Mathematics: Farnaz DALY : 1935 Requested By: Jaky Fitzpatrick Order Number: [id number] MD: Osei Barr Measurements Intervals [place] Rate: 71 P: 31 ID: 129 QRS: 30 QRSD: 97 T: 91 QT: 380 QTc: 413 Interpretive Statements Sinus rhythm LVH with secondary repolarization abnormality Compared to ECG 06/15/2017 09:25:57 No significant changes Electronically Signed On 11-22-2017 10:23:55 FLOUR INSPECTOR by Osei Barr [email or web address] <ELECTRONICALLY SIGNED> By: Osei Barr MD 11/22/17 1023 99 99 Osei Barr MD /MARGIE
[~2017-11-21 21:18] MED LIST changes: -ALBUTEROL2.5 MG/31 INH; -ARICEPT10 MG PO; -B12INJ; -BACLOFEN 10MG T10 MG PO; -CEFDINIR300 MG PO; -DELSYM COU30 MG/5 M1 PO; -DEMADEX20 MG PO; -DILAUDID 2 MG TA2 MG PO; -IBUPROFEN 200200 M1 PO; -LUTEIN20 M1 PO; -LUTEIN40 MG; -METHADONE HCL5 MG PO; -TRELEGY ELLIPT1 EACH INH; -VITAMIN B; -VITAMIN D2400 UNIT PO; -[UNRECOGNIZED DRUG - OTHER]
[2017-11-21 21:19] VITALS: BP 167/66
[2017-11-21 23:07] LABS: ABSOLUTE NEUTROPHILS 7.8 thou/uL (1.4-8.2); BASOPHILS 0.3 % (0.0-2.0); EOSINOPHILS 1.8 % (0.0-3.0); HEMATOCRIT 31.7 % (37.0-47.0); HEMOGLOBIN 10.7 gm/dL (12.0-15.0); LYMPHOCYTES 16.7 % (24.0-44.0); MCH 29.6 pg (26.0-34.0); MCHC 33.6 g/dL (28.0-37.0); MONOCYTES 7.8 % (1.0-8.0); PLATELET COUNT 280 thou/uL (150-400); POLYS 73.4 % (36.0-66.0); RDW 17.2 % (10.5-14.5); WBC 10.6 thou/uL (4.0-11.0)
[2017-11-21 23:41] LABS: ANION GAP 6 mmol/L (7-16); BUN 36 mg/dL (7-18); CALCIUM 8.9 mg/dL (8.5-10.1); CHLORIDE 102 mmol/L (98-107); CO2 31 mmol/L (21-32); CREATININE 1.4 mg/dL (0.6-1.0); GLUCOSE 168 mg/dL (74-106); POTASSIUM 3.8 mmol/L (3.5-5.1); SODIUM 139 mmol/L (136-145)
[2017-11-21 23:52] LABS: TROPONIN-I < 0.04 ng/mL (<0.06)
[2017-11-22] MEDS ORDERED: IBUPROFEN 200200 M1 PO (06:31)
[2017-11-22 06:39] VITALS: BP 171/86
[2017-11-22 06:41] LABS: PROTIME 49.8 Seconds (9.3-11.4)
[2017-11-22 06:44] LABS: ANION GAP 5 mmol/L (7-16); BUN 35 mg/dL (7-18); CALCIUM 8.7 mg/dL (8.5-10.1); CHLORIDE 103 mmol/L (98-107); CO2 33 mmol/L (21-32); CREATININE 1.4 mg/dL (0.6-1.0); GLUCOSE 140 mg/dL (74-106); POTASSIUM 4.5 mmol/L (3.5-5.1); SODIUM 141 mmol/L (136-145); TROPONIN-I < 0.04 ng/mL (<0.06)
[2017-11-22 07:55] VITALS: BP 156/87
[2017-11-22 08:00] VITALS: BP 133/75; BP 189/90
[2017-11-22 11:52] LABS: BE(vivo) -0.7 mmol/L (-2 to +3); HCO3 24.1 mmol/L (22.0-26.0); PCO2 40.5 mmHg (35.0-45.0); PO2 84.5 mmHg (80.0-100.0); pH 7.393 (7.360-7.450); sO2 96.3 % (92.0-98.0)
[2017-11-22] MEDS ORDERED: METHADONE HCL 110 M1 PO (12:09)
[2017-11-22 16:00] VITALS: BP 180/97
[2017-11-22 19:31] VITALS: BP 198/90
[2017-11-23] VITALS (7 sets, daily range): BP systolic 144–237; BP diastolic 62–106
[2017-11-23 06:22] LABS: PROTIME 23.8 Seconds (9.3-11.4)
[2017-11-23 06:30] LABS: INR 2.4
[2017-11-23] MEDS ORDERED: TEGRETOL200 MG PO (11:52)
[2017-11-23] MEDS ORDERED: COUMADIN 1MG TAB1 M1 PO (11:53)
[2017-11-23] MEDS ORDERED: DILAUDID 2 MG TA2 MG PO (11:58)
[2017-11-23] MEDS ORDERED: COZAAR 50 MG TA50 M2 PO (11:59)
[2017-11-23] MEDS ORDERED: LUTEIN20 M1 PO (12:00)
[2017-11-23] MEDS ORDERED: SINGULAIR 10 MG10 M1 PO (12:01)
[2017-11-23] MEDS ORDERED: PREDNISONE 5 MG5 M1 PO (12:05)
[2017-11-23] MEDS ORDERED: FLOMAX0.4 MG PO (12:06)
[2017-11-23] MEDS ORDERED: B12INJ (12:09)
[2017-11-23] MEDS ORDERED: ANORO ELLIPTA1 EACH INH (12:11)
[2017-11-23] MEDS ORDERED: ALBUTEROL2.5 MG/31 INH (12:12)
[2017-11-23] MEDS ORDERED: VENTOLIN HFA 1818 GM INH (12:14)
[2017-11-24 00:28] VITALS: BP 153/57
[2017-11-24 03:26] VITALS: BP 149/62
[2017-11-24 04:18] LABS: INR 1.5; PROTIME 15.7 Seconds (9.3-11.4)
[2017-11-24 04:23] LABS: CALCIUM 8.8 mg/dL (8.5-10.1); CREATININE 1.8 mg/dL (0.6-1.0); POTASSIUM 4.3 mmol/L (3.5-5.1)
[2017-11-24 05:25] LABS: HEMATOCRIT 29.8 % (37.0-47.0); HEMOGLOBIN 9.8 gm/dL (12.0-15.0); MCH 29.1 pg (26.0-34.0); MCHC 32.8 g/dL (28.0-37.0); MCV 88.6 fL (80.0-100.0); RBC 3.37 mil/uL (4.20-5.00); RDW 16.5 % (10.5-14.5); WBC 16.5 thou/uL (4.0-11.0)
[2017-11-24 08:32] VITALS: BP 143/69
[2017-11-24 16:00] VITALS: BP 142/72
[2017-11-24 19:02] VITALS: BP 134/72
[2017-11-25 04:18] VITALS: BP 133/52
[2017-11-25 06:11] LABS: ABSOLUTE NEUTROPHILS 12.6 thou/uL (1.4-8.2); BASOPHILS 0.1 % (0.0-2.0); HEMATOCRIT 28.5 % (37.0-47.0); HEMOGLOBIN 9.4 gm/dL (12.0-15.0); LYMPHOCYTES 5.8 % (24.0-44.0); MCH 29.3 pg (26.0-34.0); MCHC 33.1 g/dL (28.0-37.0); MCV 88.6 fL (80.0-100.0); MONOCYTES 4.8 % (1.0-8.0); PLATELET COUNT 280 thou/uL (150-400); POLYS 89.3 % (36.0-66.0); RBC 3.22 mil/uL (4.20-5.00); RDW 16.6 % (10.5-14.5); WBC 14.2 thou/uL (4.0-11.0)
[2017-11-25 06:18] LABS: INR 1.6; PROTIME 16.1 Seconds (9.3-11.4)
[2017-11-25 06:41] LABS: CALCIUM 8.5 mg/dL (8.5-10.1); CREATININE 1.8 mg/dL (0.6-1.0)
[2017-11-25 07:20] VITALS: BP 150/75
[2017-11-25 15:38] VITALS: BP 137/60
[2017-11-25 19:25] VITALS: BP 174/85
[2017-11-26 05:28] VITALS: BP 149/73
[2017-11-26 05:48] LABS: HEMATOCRIT 30.6 % (37.0-47.0); MCH 29.1 pg (26.0-34.0); MCHC 32.6 g/dL (28.0-37.0); MCV 89.3 fL (80.0-100.0); PLATELET COUNT 273 thou/uL (150-400); RBC 3.43 mil/uL (4.20-5.00); RDW 16.3 % (10.5-14.5); WBC 13.8 thou/uL (4.0-11.0)
[2017-11-26 06:02] LABS: PROTIME 20.1 Seconds (9.3-11.4)
[2017-11-26 06:25] LABS: CALCIUM 8.7 mg/dL (8.5-10.1); CREATININE 1.4 mg/dL (0.6-1.0); POTASSIUM 4.4 mmol/L (3.5-5.1)
[2017-11-26 08:22] LABS: ABSOLUTE NEUTROPHILS 9.8 thou/uL (1.4-8.2); METAMYELOCYTES 1 %; MYELOCYTES 1 %
[2017-11-26 08:23] LABS: ANISOCYTOSIS 1+
[2017-11-26 08:29] LABS: URINE BILIRUBIN NEGATIVE (Negative); URINE BLOOD TRACE (Negative); URINE CLARITY CLEAR; URINE COLOR YELLOW; URINE GLUCOSE-RANDOM* TRACE (Negative); URINE KETONES NEGATIVE (Negative); URINE LEUKOCYTES NEGATIVE (Negative); URINE NITRITE NEGATIVE (Negative); URINE PROTEIN (DIPSTICK) 2+ (Negative); URINE UROBILINOGEN 0.2 E.U./dl (0.2-1.0)
[2017-11-26 08:38] LABS: URINE CREATININE-RANDOM* 38.8 mg/dL
[2017-11-26 08:39] LABS: PROT/CREAT RATIO 2.8; URINE PROTEIN-RANDOM* 106.1 mg/dL (<11.9)
[2017-11-26 09:03] VITALS: BP 147/64
[2017-11-26 09:09] LABS: BACTERIA 1-9 Few /HPF (None Seen); CASTS None Seen /LPF (None Seen); CRYSTALS None Seen /LPF (None Seen); SQUAMOUS None Seen /LPF (0-3); URINE RBC None Seen /HPF (0-2); URINE WBC None Seen /HPF (0-5)
[2017-11-26 16:31] VITALS: BP 108/57
[2017-11-26 19:58] VITALS: BP 103/35
[2017-11-27 03:53] VITALS: BP 122/55
[2017-11-27 05:57] LABS: ABSOLUTE NEUTROPHILS 7.9 thou/uL (1.4-8.2); BASOPHILS 0.1 % (0.0-2.0); EOSINOPHILS 1.6 % (0.0-3.0); HEMOGLOBIN 9.8 gm/dL (12.0-15.0); LYMPHOCYTES 17.3 % (24.0-44.0); MCH 29.4 pg (26.0-34.0); MCHC 32.6 g/dL (28.0-37.0); MCV 90.4 fL (80.0-100.0); MONOCYTES 11.1 % (1.0-8.0); PLATELET COUNT 274 thou/uL (150-400); POLYS 69.9 % (36.0-66.0); RBC 3.32 mil/uL (4.20-5.00); RDW 16.7 % (10.5-14.5); WBC 11.3 thou/uL (4.0-11.0)
[2017-11-27 06:00] LABS: ALBUMIN 2.3 g/dL (3.4-5.0); CALCIUM 8.4 mg/dL (8.5-10.1); CREATININE 1.7 mg/dL (0.6-1.0); PHOSPHORUS 4.6 mg/dL (2.5-4.9); POTASSIUM 4.4 mmol/L (3.5-5.1)
[2017-11-27 07:21] VITALS: BP 151/75
[2017-11-27] MEDS ORDERED: DELSYM COU30 MG/5 M1 PO (15:16)
[2017-11-27] MEDS ORDERED: ACETAMINOPHEN325 M1 PO (15:16)
[2017-11-27] MEDS ORDERED: PREDNISONE 10 M10 MG PO (15:19)
[2017-11-27] MEDS ORDERED: BYSTOLIC 5 MG5 M1 PO (15:22)
[2017-11-27 15:54] VITALS: BP 151/75
[2017-11-27 15:55] VITALS: BP 120/57
[2017-11-27 16:09] VITALS: BP 151/75
[2017-11-27] MEDS ORDERED: LASIX 40 MG TAB40 M2 PO (16:24)
[2018-01-07] MEDS ORDERED: BYSTOLIC 5 MG5 M1 PO (12:56)
[2018-01-07] MEDS ORDERED: DEMADEX20 MG PO (12:56)
[2018-01-07] MEDS ORDERED: TEGRETOL200 MG PO (13:05)
[2018-01-07] MEDS ORDERED: METHADONE HCL 110 M1 PO (13:05)
[2018-01-07] MEDS ORDERED: BACLOFEN 10MG T10 MG PO (13:05)
[2018-01-07] MEDS ORDERED: PERCOCET 7.5-31 EACH PO (13:05)
[2018-02-01] MEDS ORDERED: METHADONE HCL5 MG PO (11:40)
[2018-02-01] MEDS ORDERED: BACLOFEN 10MG T10 MG PO (11:40)
[2018-02-01] MEDS ORDERED: PERCOCET 7.5-31 EACH PO ×2 (11:40)
[2018-03-01] MEDS ORDERED: METHADONE HCL 110 M1 PO (09:38)
[2018-03-01] MEDS ORDERED: PERCOCET 7.5-31 EACH PO ×2 (09:38)
[2018-05-07] MEDS ORDERED: TEGRETOL200 MG PO (13:50)
[2018-05-07] MEDS ORDERED: METHADONE HCL 110 M1 PO (13:50)
[2018-05-07] MEDS ORDERED: BACLOFEN 10MG T10 MG PO (13:50)
[2018-05-07] MEDS ORDERED: PERCOCET 7.5-31 EACH PO ×2 (13:50)
[2018-06-23] MEDS ORDERED: TRELEGY ELLIPT1 EACH INH (10:19)
[2018-06-23] MEDS ORDERED: ARICEPT10 MG PO (10:22)
[2018-06-23] MEDS ORDERED: METHADONE HCL 110 M1 PO (10:51)
[2018-07-02] MEDS ORDERED: VOLTAREN GEL 1100 G1 TOP (11:54)
== END 2017-11-27 17:15 | disposition home health service (06) | DRG 871 ==
LOC: ER 21:18 → EROBS 11-22 00:28 → 4S 11-22 00:28
PROVIDERS: Hospitalist; Internal Medicine Nephrology; Internal Medicine Pulmonary Disease; Nurse Practitioner Family
DX: A41.9 Sepsis, unspecified organism (principal); J96.21 Acute and chronic respiratory failure with hypoxia; J44.1 Chronic obstructive pulmonary disease with (acute) exacerbation; I13.0 Hypertensive heart and chronic kidney disease with heart failure and stage 1 through stage 4 chronic kidney disease, or unspecified chronic kidney disease; I50.32 Chronic diastolic (congestive) heart failure; I25.10 Atherosclerotic heart disease of native coronary artery without angina pectoris; E78.00 Pure hypercholesterolemia, unspecified; K21.9 Gastro-esophageal reflux disease without esophagitis; F32.9 Major depressive disorder, single episode, unspecified; Z96.652 Presence of left artificial knee joint; G89.29 Other chronic pain; M54.9 Dorsalgia, unspecified; E11.51 Type 2 diabetes mellitus with diabetic peripheral angiopathy without gangrene; G47.33 Obstructive sleep apnea (adult) (pediatric); E66.01 Morbid (severe) obesity due to excess calories; E78.5 Hyperlipidemia, unspecified; I48.0 Paroxysmal atrial fibrillation; N18.3 Chronic kidney disease, stage 3 (moderate); E11.22 Type 2 diabetes mellitus with diabetic chronic kidney disease; E11.65 Type 2 diabetes mellitus with hyperglycemia; Z86.711 Personal history of pulmonary embolism; Z95.5 Presence of coronary angioplasty implant and graft; I25.2 Old myocardial infarction; Z95.1 Presence of aortocoronary bypass graft; Z90.49 Acquired absence of other specified parts of digestive tract; Z98.42 Cataract extraction status, left eye; Z98.41 Cataract extraction status, right eye; Z90.710 Acquired absence of both cervix and uterus; Z86.718 Personal history of other venous thrombosis and embolism; Z79.899 Other long term (current) drug therapy; Z79.4 Long term (current) use of insulin; Z88.5 Allergy status to narcotic agent; Z88.6 Allergy status to analgesic agent; Z88.8 Allergy status to other drugs, medicaments and biological substances; Z82.49 Family history of ischemic heart disease and other diseases of the circulatory system; Z68.37 Body mass index [BMI] 37.0-37.9, adult
CPT/HCPCS: 10100; 10102

== ENCOUNTER → 2018-01-07 | Outpatient (CLI) | payer OTHER ==
[~2018-01-07] VITALS: Ht 165.1 cm; Wt 101.6 kg
[~2018-01-07] MED LIST changes: +ALBUTEROL2.5 MG/31 INH; +B12INJ; +BACLOFEN 10MG T10 MG PO; +DELSYM COU30 MG/5 M1 PO; +DEMADEX20 MG PO; +DILAUDID 2 MG TA2 MG PO; +IBUPROFEN 200200 M1 PO; +LUTEIN20 M1 PO
--- NOTE | ~2018-01-07 | HPC ---
[facility] [address] [place] [address] PAIN MANAGEMENT CONSULTATION Name: ESTEBAN ORO Room #: REG LAWRENCE Jacob#: [id number] Admission: 01/07/18 Attend Phys: Jorje Jha DO Discharge: Date of : 37 Report #: [id number] THIS REPORT FOR: //name// CC: Titi Jha DATE OF SERVICE: 01/07/2018 The patient is an 82-year-old female, typically seen for axial back pain, lumbar radiculopathy secondary to spinal stenosis requiring complex medication management. Comorbidity includes significant chronic obstructive pulmonary disease. The patient presents to pain clinic today, we had a prolonged visit from 1240 to 1310. Greater than 50% of this 25+ minute visit was spent counseling the patient. In the interval since we last saw her (11/06/2017), the patient has been again hospitalized for pneumonia. She did have a cardiac workup as well. She has completed 6 weeks of antibiotics. She continues with ongoing shortness of breath. Still has a little diplopia secondary to some right facial ocular trauma. We had talked about weaning opiate analgesics over time, she has been in higher and lower dose of opiates, had titrated back up to aggressively high dose of methadone 10 mg 2 in the morning, 1 at noon, 1 at night, Percocet 7.5/325 up to 4 a day, roughly equating to over 205 milligram equivalents of morphine. I am pleased to note that over the last 2 months she has been able to wean down, currently taking methadone 10 mg twice a day and Percocet 7.5/325 mg 2-3 a day, equating to roughly 100 milligram equivalents of morphine. PHYSICAL EXAMINATION: Today, shows a pleasant 82-year-old female, again status post some surgery around the right eye, does have a little diplopia, supplemental oxygen, endomorphic build. Currently in a wheelchair, though she notes she does walk around the house a bit, uses walker for balance. States that she gets winded quite easily. +1 to 2 pretibial edema lower extremities. Significant ecchymosis throughout, she is anticoagulated with Coumadin. Subjective pain primarily back and legs. No discrete trigger points are noted. ASSESSMENT: Lumbar radiculopathy secondary to spinal stenosis, chronic pain syndrome requiring complex medication management. RECOMMENDATION: Long discussion with the patient today. She is complaining of ongoing cramping and spasm in her feet. We have elected to trial baclofen 10 mg 1-2 at bedtime. Continue carbamazepine unchanged. Continue methadone at lower dose, methadone 10 mg b.i.d., Percocet 7.5/325 one tablet 2-3 times a day, [place] [address] PAIN MANAGEMENT CONSULTATION Name: ESTEBAN ORO JACKIE Room #: REG CLLeisa Jacob#: [id number] Admission: 01/07/18 Attend Phys: Jorje Jha DO Discharge: Date of : 37 Report #: [id number] 75 tablets for 30 days. Follow up in 4 weeks to evaluate efficacy of initiation of baclofen at bedtime. We will plan on weaning methadone to 5 mg tablet at that time 1 t.i.d., decreasing overall dose 25%. Discharged in good and stable condition after a 25+ minute visit. <ELECTRONICALLY SIGNED> By: Jorje Jha DO 01/09/18 0954 1311 1957 Jorje Jha DO /nt
[2018-01-07 12:58] VITALS: BP 157/79
== END ==
LOC: PAIN 07:05
DX: M54.16 Radiculopathy, lumbar region (principal); Z79.899 Other long term (current) drug therapy

== ENCOUNTER → 2018-01-25 | Outpatient (CLI) | payer OTHER ==
[~2018-01-25] VITALS: Ht 165.1 cm; Wt 113.7 kg
[~2018-01-25] MED LIST changes: +METHADONE HCL5 MG PO
--- NOTE | ~2018-01-25 | HPC ---
[facility] [place] [address] [place] [address] PAIN MANAGEMENT CONSULTATION Name: ESTEBAN ORO Room #: REG LAWRENCE Jacob#: [id number] Admission: 01/25/18 Attend Phys: Jorje Jha DO Discharge: Date of : 37 Report #: [id number] THIS REPORT FOR: //name// CC: Clayton Jha The patient is an 82-year-old female, long known to pain clinic, typically treated for axial back pain, lumbar radiculopathy secondary to spinal stenosis, lumbar spondylosis without myelopathy. Comorbidity includes significant COPD requiring complex medication management. The patient had prior been on quite high dose of opiate greater than 200 mEq of morphine via the methadone, 10 mg 2 in the morning, 1 at noon, and 2 at night and Percocet 7.5/325 four a day. Last visit 01/07/2018, we continue to wean opiate which we have over time. She is down to methadone 10 mg b.i.d., Percocet 7.5/325 one tablet 2-3 times a day, roughly equivalent to about 100 mEq of morphine. We did trial baclofen 10 mg 1-2 at bedtime. Carbamazepine was continued with no change. He returns to pain clinic today. Ongoing pain in the low back, left side. We have prior done transforaminal epidural injection, left L4-L5. 09/03/2017 was the last intervention for ongoing low back pain. We have prior done left L3, L4 and L5 medial branch dorsal rami neurolysis in fall of last year. He returns to pain clinic today with ongoing pain, left low back. This is exacerbated with rotation and side bending, radiating into the low back, but not down the leg. It appears to be fairly classic lumbar spondylosis without myelopathy. Her ongoing lumbar radicular symptoms are relatively quiescent. COPD, does require supplemental oxygen. She is doing well on current narcotic methadone 10 mg b.i.d., Percocet 7.5/325 of 2-3 tablets a day. With a physical exam noting pain in the left low back exacerbates side-bending rotation, we elected to proceed with left L3-L4, L4-L5 facet joint injection under fluoroscopy. If this affords good incremental relief at next visit, we will try weaning methadone 5 mg t.i.d. Continue Percocet unchanged. If, however, it gives her only transient relief, we will continue baseline medication unchanged and move forward with authorization for medial branch dorsal rami diagnostic block, left L3, L4 and L5 in consideration of radiofrequency neurolysis, which again had given her a 6-month relief last fall. PROCEDURE NOTE: Left L3-L4 and L4-L5 facet joint injection under fluoroscopy. PROCEDURE: After informed consent was obtained, the patient was taken to fluoroscopy suite, placed in prone position. After sterile prep and drape, skin was raised. A 22-gauge stylet needle was placed [place] [address] PAIN MANAGEMENT CONSULTATION Name: ESTEBAN ORO Room #: KERI Jacob#: [id number] Admission: 01/25/18 Attend Phys: Jorje Jha DO Discharge: Date of : 39 Report #: [id number] the left L3-L4 and L4-L5 facet joints. AP and lateral projections showed good needle placement. Two 10 mL of Omnipaque was injected, which showed spread within both joints. This was followed with 20 mg triamcinolone plus 1 mL of 0.5% preservative-free bupivacaine. Both needles removed. The area was cleansed, Band-Aids applied. Please note that while the patient's pain was a 5-6 on a VAS on admission, it was absent on discharge. Follow up in 1 week for reevaluation. <ELECTRONICALLY SIGNED> By: Jorje Jha DO 01/28/18 0701 1155 1355 Jorje Jha DO /nt
[2018-01-25 10:25] VITALS: BP 122/86
== END | disposition home or self-care (01) ==
LOC: PAIN 05:53
DX: M47.816 Spondylosis without myelopathy or radiculopathy, lumbar region (principal); M48.061 Spinal stenosis, lumbar region without neurogenic claudication; J44.9 Chronic obstructive pulmonary disease, unspecified; Z79.899 Other long term (current) drug therapy

== ENCOUNTER → 2018-01-27 | Outpatient (CLI) | payer OTHER ==
[~2018-01-27] MED LIST changes: -METHADONE HCL5 MG PO
--- NOTE | ~2018-01-27 | P ---
[facility] [place] [address] [place] [address] PROCEDURE REPORT Name: ESTEBAN ORO JACKIE [id number] Admission: 01/27/18 Attend Phys: Mk Bauer MD Discharge: Date of : 39 Report #: [id number] THIS REPORT FOR: //name// CC: Gerald Bauer DATE OF SERVICE: 01/27/2018 PROCEDURE: Fiberoptic bronchoscopy with bronchial lavage of the left upper lobe. INDICATION: Foreign body sensation in the airway, persistent cough and hoarseness. ASA classification class 2. PROCEDURE NOTATION: After discussing risks, benefits of planned procedure with the patient, she desired to proceed. After obtaining informed consent, the patient was brought to worm farm laborer 3. She was placed on continuous cardiopulmonary monitoring and supplemental oxygen. She then received 4% lidocaine nebulized to anesthetize the upper respiratory tract. Once accomplished, she received conscious sedation. Total of 3 mg of Versed were titrated during the procedure to provide adequate sedation. Once accomplished, bronchoscope was passed through an oral biteblock until the vocal cords were visualized. The upper airway and vocal cords appeared normal and moved appropriately both before and after procedure. There was some thick opaque secretions noted near the vocal cords appeared to be coming from above. A 1% lidocaine was then instilled in the vocal cords to provide topical anesthesia. Bronchoscope was then passed in the trachea, 1% lidocaine was instilled in the tracheobronchial tree bilaterally for topical anesthesia. Once complete, airways were surveyed. FINDINGS: Trachea mainstem, lobar, segmental and subsegmental bronchi were explored and appeared patent with no significant anatomic disease or variation. Some secretions noted in the airways, but nothing of significance. Bronchial washings were performed in the left upper lobe, predominantly the lingula and sent for microbiologic tests. Some mucus plugging noted. The patient tolerated well. No noted complications. IMPRESSION: Normal upper airway. FINDINGS: For some secretions of both above and below the vocal cords suggestive of an upper respiratory postnasal drainage. Perhaps ongoing poorly controlled asthma. SUGGEST: 1. Await cultures. [facility] [address] [place] [address] PROCEDURE REPORT Name: ESTEBAN ORO [facility] Room #: REG [facility] Patti.#: [id number] Admission: 01/27/18 Attend Phys: Mk Bauer MD Discharge: Date of : 39 Report #: [id number] 2. No antibiotics at this time. 3. Add an inhaled steroid, would change from Anoro to Trelegy inhaler. 4. We will follow up in 4 weeks in response to therapy. <ELECTRONICALLY SIGNED> By: Mk Bauer MD 01/28/18 1613 0856 37 Mk Bauer MD /nt
[2018-01-27 07:59] LABS: PROTIME 9.5 Seconds (9.3-11.4)
== END | disposition home or self-care (01) ==
LOC: CATH 06:58
PROVIDERS: Internal Medicine Pulmonary Disease
DX: J98.09 Other diseases of bronchus, not elsewhere classified (principal); B96.89 Other specified bacterial agents as the cause of diseases classified elsewhere; J44.1 Chronic obstructive pulmonary disease with (acute) exacerbation; I11.0 Hypertensive heart disease with heart failure; I50.9 Heart failure, unspecified; Z87.440 Personal history of urinary (tract) infections; Z98.890 Other specified postprocedural states; Z88.8 Allergy status to other drugs, medicaments and biological substances; Z79.899 Other long term (current) drug therapy; Z79.4 Long term (current) use of insulin; Z79.891 Long term (current) use of opiate analgesic; Z79.01 Long term (current) use of anticoagulants

== ENCOUNTER → 2018-02-01 | Outpatient (CLI) | payer OTHER ==
[~2018-02-01] VITALS: Ht 165.1 cm; Wt 113.7 kg
[~2018-02-01] MED LIST changes: +METHADONE HCL5 MG PO
--- NOTE | ~2018-02-01 | HPC ---
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 Comorbidity includes significant COPD. The patient requires complex medication management. She has been up and down on various opiates, most recently at methadone 10 mg b.i.d., Percocet 7.5/325 one tablet 2-3 times a day. We are trying to wean opiate as able. Again, with COPD, oxygen dependent, we are trying to get to the lowest opiate load possible. The patient returns to the Pain Clinic today. We have prior done radiofrequency neurolysis in the fall of 2016 for the left low back (medial branch dorsal rami L3, L4 and L5). She had excellent relief and in fact had weaned quite down on opiates. Pain had begun to recur. Last visit on 01/25/2018, I performed left L3-L4 and L4-L5 facet joint injections under fluoroscopy. She had excellent relief near 100% for about 4 days and pain began to recur. She returns to Pain Clinic today. She notes pain is in the left low back, exacerbated with rotation and side bending. No radicular component is noted. We sought authorization for and was granted ability to repeat RFL on the left at L3, L4, and L5. Hopefully, this will decrease the overall pain generator in the left low back. She does have ongoing other chronic pain concerns including lumbar radiculopathy secondary to spinal stenosis. Again, those symptoms are relatively quiescent at present. We reviewed the fact that opiate medications are being used to provide analgesia adequate to support activities of daily living, not attempting to achieve a specific pain score on the 0-10 Visual Analog Scale. The current opiate medications are providing sufficient analgesia to allow the patient to participate in activities of daily living. The patient is not exhibiting any aberrant behavior suggestive of drug diversion. The patient is not having any adverse reactions to medications. The patient is not suffering from daytime somnolence or mental acuity changes. The patient is managing opiate-induced constipation with appropriate [id number]-opwvyea agents and dietary considerations. The patient was counseled on concern for caution with operating a motor vehicle while using opiate medications. [address] [address] PAIN MANAGEMENT CONSULTATION Name: ESTEBAN ORO Room #: REG LAWRENCE Jacob#: [id number] Admission: 02/01/18 Attend Phys: Jorje Jha DO Discharge: Date of : 37 Report #: [id number] A physical exam was performed and the patient's functional status was evaluated. All patients with back pain were advised against the bed rest greater than 4 days and were advised to return to normal activities. Pain score assessment was noted and the treatment plan was reviewed with the patient. All current medications, both prescribed and OTC were reviewed and reconciled on the electronic medical record. Tobacco screening was accomplished and smoking cessation was advised when indicated. BMI was noted and diet/exercise modification was recommended for all patients following outside normal parameters. I reviewed with the patient today their responsibilities to safeguard prescription medications, reviewed their responsibility to utilize medications only as prescribed by the physician. They are to seek and receive pain medications only from 1 physician group ( [facility]). They are to use 1 pharmacy and keep the clinic informed if they change pharmacies. Their responsibilities include making followup visits in a timely fashion and to avoid abrupt discontinuation of medication usage. Their responsibilities further include bringing their medications (bottles from the pharmacy with residual pills) to the visit for possible confirmation of pill counts and the patient understands it is their responsibility to submit to random drug screens to ensure both that the medications prescribed are present, and that no other controlled substances are present. All prescriptions provided today were generated electronically. ASSESSMENT: 1. Symptomatic lumbar radiculopathy secondary to spinal stenosis, chronic obstructive pulmonary disease, chronic pain syndrome requiring complex medication management. Recommendation: After RFL of the innervation of the left L4-L5 and L5-S1 facet joints today, we will try weaning methadone from 10 mg b.i.d. to 5 mg t.i.d., continue Percocet 7.5/325 for breakthrough pain. I have taken the liberty of writing for 2 months of current medication. If this is not efficacious in about 3 weeks, we will have her bring back the "4-week release prescription" and revert back to methadone 10 b.i.d. The patient was given prescriptions for 2 months. We will have her followup. I did inform the patient that I will be leaving the area and she will need to find a Pain Clinic physician in her network to continue current medication. Her general office clerk physician may consider writing for a medication or she may follow up with Dr. Yann Longoria at the [facility]. 2. 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 The patient with good transient relief following facet joint and medial branch blocks in the past, good long-term relief greater than 6 months following RFL of same. Recommendation: Proceed with medial branch dorsal neurolysis at L3, L4, and L5. [facility] [address] [place] [address] PAIN MANAGEMENT CONSULTATION Name: PREETHIESTEBAN JACKIE Room #: REG [facility].#: [id number] Admission: 02/01/18 Attend Phys: Jorje Jha DO Discharge: Date of : 37 Report #: [id number] PROCEDURE NOTE: After written and informed consent was obtained, the patient was taken to the fluoroscopic suite, placed in prone position. After sterile prep and drape, skin was raised. A 40-mm RFK 10-mm needle was placed to contact the left sacroiliac notch, second needle was placed lateral to the superior articular process of L5, third needle was placed lateral to superior articular process of L4. [place] were placed using biplanar fluoroscopy correlating to the L5, L4 and L3 medial branch dorsal rami. Initial impedance, sensory and motor testing was accomplished. Those numbers are on the chart. Each needle was then injected with 1 mL of 1% preservative-free Xylocaine, heated to 80 degrees centigrade for 90 seconds. of triamcinolone plus 1 mL of 0.5 preservative-free bupivacaine was injected. All three needles removed. The area was cleansed and Band-Aids applied. The patient monitored for an appropriate period of time, discharged in good and stable condition. Fluoroscopy time was under 30 seconds. Followup will be in 3 weeks or 2 months depending on efficacy of medication change. By: [id number] Jorje Jha DO /nt
[2018-02-01 10:39] VITALS: BP 146/71
== END | disposition home or self-care (01) ==
LOC: PAIN 07:09
DX: M47.816 Spondylosis without myelopathy or radiculopathy, lumbar region (principal); M47.817 Spondylosis without myelopathy or radiculopathy, lumbosacral region; G89.4 Chronic pain syndrome; M54.16 Radiculopathy, lumbar region; M48.061 Spinal stenosis, lumbar region without neurogenic claudication; J44.9 Chronic obstructive pulmonary disease, unspecified; Z79.891 Long term (current) use of opiate analgesic; Z87.891 Personal history of nicotine dependence; Z98.890 Other specified postprocedural states

== ENCOUNTER → 2018-03-01 | Outpatient (CLI) | payer OTHER ==
[~2018-03-01] VITALS: Ht 165.1 cm; Wt 113.4 kg
--- NOTE | ~2018-03-01 | HPC ---
[facility] [place] [address] PAIN MANAGEMENT CONSULTATION Name: ESTEBAN ORO Room #: REG LAWRENCE Jacob#: [id number] Admission: 03/01/18 Attend Phys: Jorje Jha DO Discharge: Date of : 37 Report #: [id number] THIS REPORT FOR: //name// CC: Titi Jha DATE OF SERVICE: 03/01/2018 The patient is a pleasant 83-year-old female being treated for lumbar radiculopathy secondary to spinal stenosis, has component of lumbosacral spondylosis, we did radiofrequency neurolysis left L3, L4 and L5 at last visit (02/01/2018) with some 50% improvement of her axial back pain; however, still has ongoing lumbar radicular pain. Comorbidities include significant COPD. She is oxygen dependent. Because of the latter, we have been trying very aggressively the lower opiate load. Tried weaning from methadone 10 mg b.i.d. to 5 t.i.d. at last visit. We had lowered Percocet from prior dose of 10 mg to 7.5 from 120 down to 75 tablets. Returns to pain clinic today noting while the axial back pain component is somewhat better following RFL, she feels that the lower methadone dose is causing increasing pain, in fact she rates her pain "6" on a VAS. Pain is in the right low back, buttock, and legs. PHYSICAL EXAMINATION: Otherwise notes pleasant 83-year-old female, BMI is markedly elevated at 41.6 kilograms per meter squared. Blood pressure 108/60, pulse 91, respirations are 16. With supplemental oxygen at 3 liters per minute, saturation is 95%. Difficulty rising from the chair. Pain across the right low back radiating down the buttock and radiating into the groin. Appears to be somewhat of an L3 distribution. ASSESSMENT: Lumbar radiculopathy secondary to spinal stenosis, axial back pain, lumbar spondylosis without myelopathy and significant chronic obstructive pulmonary disease. RECOMMENDATION: 1. Long discussion with the patient today. We elected to proceed with epidural injection under fluoroscopy at L3-L4. 2. Move forward with methadone increased back from 5 t.i.d. to 10 b.i.d., to keep Percocet at 7.5/325 two or three a day. Increasing the methadone back from 15 to 20 mg a day, increase his overall opiate morphine equivalent to about 80 mg with perhaps another 20 with the Percocet 7.5/325 two or three a day. Puts her slightly over the 90 mg morphine equivalent we were aiming for, however, still overall lower opiate load by far than what she had been on in the past, she had been taking methadone 10 mg 4 a day (40 mg) and hydromorphone 4 mg up to 3 a [address] [address] PAIN MANAGEMENT CONSULTATION Name: ESTEBAN ORO JACKIE Room #: REG [facility] Nidia#: [id number] Admission: 03/01/18 Attend Phys: Jorje Jha DO Discharge: Date of : 37 Report #: [id number] ASSESSMENT: Symptomatic lumbar radiculopathy secondary to spinal stenosis. PROCEDURE: Midline lumbar epidural injection under fluoroscopy. The patient has been off Coumadin for 5 days. INR is 1.1. PROCEDURE: Lumbar epidural injection under fluoroscopy. PROCEDURE NOTE: After both written and informed consent to include risk of spinal cord damage, increased pain, weakness and dural puncture, the patient was taken to the fluoroscopy suite, placed in the prone position. After sterile prep and drape, a skin wheal with lidocaine was raised. A 22-gauge epidural Tuohy needle was inserted in the midline at L3-L4 with good loss to resistance. Negative aspiration for cerebrospinal fluid or blood was noted. Then 1 mL of Omnipaque under biplanar fluoroscopy showed good spread within the epidural space. This was followed with 80 mg of triamcinolone plus 1 mL of 1.5% preservative-free Xylocaine, 0.5 mL Xylocaine was then injected to flush the needle; it was removed. The patient was monitored for an appropriate period of time and discharged in good and stable condition. <ELECTRONICALLY SIGNED> By: Jorje Jha DO 03/03/18 0800 [id number] Jorje Jha DO /nt
[2018-03-01 09:18] VITALS: BP 108/60
== END | disposition home or self-care (01) ==
LOC: PAIN 02-25 12:17
DX: M48.061 Spinal stenosis, lumbar region without neurogenic claudication (principal); M54.16 Radiculopathy, lumbar region; G89.29 Other chronic pain; M47.896 Other spondylosis, lumbar region; I11.0 Hypertensive heart disease with heart failure; I50.9 Heart failure, unspecified; J44.9 Chronic obstructive pulmonary disease, unspecified; Z79.899 Other long term (current) drug therapy; Z79.891 Long term (current) use of opiate analgesic; Z88.8 Allergy status to other drugs, medicaments and biological substances; Z79.4 Long term (current) use of insulin; Z87.891 Personal history of nicotine dependence; Z79.01 Long term (current) use of anticoagulants; Z98.890 Other specified postprocedural states

== ENCOUNTER → 2018-04-05 | Outpatient (CLI) | payer OTHER | LOC: ULTRA 07:52 | DX: R23.8 Other skin changes (principal); Z86.718 Personal history of other venous thrombosis and embolism ==

== ENCOUNTER → 2018-05-07 | Outpatient (CLI) | payer OTHER ==
[~2018-05-07] VITALS: Ht 165.1 cm; Wt 115.9 kg
[2018-05-07 13:18] VITALS: BP 147/60
== END ==
LOC: PAIN 07:21
DX: M54.5 Low back pain (principal); M25.552 Pain in left hip; G89.29 Other chronic pain; Z79.899 Other long term (current) drug therapy

== ENCOUNTER → 2018-06-23 | Outpatient (CLI) | payer OTHER ==
[~2018-06-23] VITALS: Ht 165.1 cm; Wt 110.9 kg
[~2018-06-23] MED LIST changes: +ARICEPT10 MG PO; +CEFDINIR300 MG PO; +LUTEIN40 MG; +TRELEGY ELLIPT1 EACH INH; +VITAMIN B; +VITAMIN D2400 UNIT PO; +[UNRECOGNIZED DRUG - OTHER]
--- NOTE | ~2018-06-23 | HPC ---
[facility] [place] [address] PAIN MANAGEMENT CONSULTATION Name: PREETHIESTEBAN JACKIE Room #: REG LAWRENCE Nidia#: [id number] Admission: 06/23/18 Attend Phys: Jennifer Longoria MD Discharge: Date of : 37 Report #: [id number] THIS REPORT FOR: //name// CC: Jennifer Bobo DATE OF SERVICE: 06/23/2018 PRIMARY CARE PHYSICIAN: Titi Bobo MD HISTORY: Here for evaluation of medicines. FOLLOWUP HISTORY: The patient is an 83-year-old female who has been followed in the pain clinic. She has pain and discomfort in the lumbar area. Notes some pain and discomfort in the low back area. She has a history of spinal stenosis and some lumbosacral spondylosis. She has undergone radiofrequency neurolysis at L3, L4 and L5. Also noted greater than 50% improvement after that treatment. She now has some pain and discomfort in the low portion of her back. It is very sensitive to palpation. Feels like it is a trigger point pain. Does have a history of COPD. She is oxygen dependent and is on oxygen. She has been using methadone 10 mg p.o. b.i.d. and t.i.d. She also has Percocet, which she is using and 10 mg has been decreased to 7.5 mg. She has noticed continued pain. She was somewhat confused and took the methadone medication 3 tablets daily instead of 2 tablets daily. Has noted worsening improvement in her pain, but has run out of her medications. She is on and continues to use Coumadin. ALLERGIES: CODEINE, MORPHINE, FENTANYL. CURRENT MEDICATIONS: OxyContin 7.5 mg, methadone 10 mg p.o. b.i.d., baclofen 10 mg 1-2 tablets with spasms in her feet, Tegretol 200 mg b.i.d., Bystolic 5 mg b.i.d., Demadex 20 mg a total of 40 mg daily, albuterol inhaler 2 puffs q.4 hours p.r.n., vitamin B12 1000 mcg, Protonix 40 mg, Coumadin 8 mg, Flomax 0.4 mg, Anoro Ellipta 62.5/25 inhalation, albuterol, MiraLax 17 g b.i.d., losartan 50 mg, 100 mg total, Aricept 5 mg, 10 mg daily, Norvasc 5 mg a total of 10 mg daily, Cymbalta 60 mg b.i.d., Lipitor 20 mg, total of 40 mg daily, vitamin D3 2000 unit capsules, Lutein 20 mg, Singulair 10 mg, trazodone 100/150 mg at bedtime, insulin 12 units subq, detemir 50/80 units subq b.i.d. one-half dose 22 units. PAIN CLINIC ASSESSMENT/PQRS: 1. History of generalized osteoarthritis. The patient has not been treated for rheumatoid arthritis. 2. Height 5 feet 5 inches, weight 244 pounds, BMI is 40. 3. VITAL SIGNS: Blood pressure 135/68, pulse 70, respiratory rate 16, room air saturation 97%. 4. Pain intensity 10. [address] [address] PAIN MANAGEMENT CONSULTATION Name: FELICITAESTEBAN FRANCOIS JACKIE Room #: REG LAWRENCE Jacob#: [id number] Admission: 06/23/18 Attend Phys: Jennifer Longoria MD Discharge: Date of : 37 Report #: [id number] 5. Fall risk. The patient has not fallen in the last 3 months, but does need some assistance with walking. 6. Blood thinner. The patient is on Coumadin. 7. Hypertension. The patient is being treated for hypertension. 8. Opioid therapy greater than 6 weeks. The patient receives her medications from [facility], the pain clinic. 9. Risk assessment tool low for opioid risk. 10. Functional assessment tool . 11. Recreational drug use. The patient denies use of recreational drugs. 12. Tobacco: The patient is a former smoker. 13. Alcohol: The patient denies use of alcoholic beverages at this juncture. PHYSICAL EXAMINATION: GENERAL: The patient is a well-developed, well-nourished, obese white female, appears her stated age. She is alert and oriented x 3. Her affect is appropriate. Speech is fluent. She is on supplemental oxygen 3 liters per minute, has some difficulty rising from her chair. The patient has pain in the low back area. Has pain in the left and right posterior superior iliac spine areas. Palpation in these areas cause a significant complaint of pain and discomfort. Appears to be myofascial in nature. Also, has some pain in the L3 distribution. IMPRESSION: 1. Lumbar radiculopathy with history of spinal stenosis and axial back pain. 2. Myofascial pain, left and right posterior superior iliac spine areas. 3. Chronic obstructive pulmonary disease. 4. Chest pain. 5. Coronary artery disease. 6. Myocardial infarction. 7. Hypertension. 8. Insulin-dependent diabetes mellitus. 9. Hypercholesterolemia. 10. Gastritis. 11. Nephrolithiasis. 12. Osteoarthritis. 13. Atonic bladder. 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 15. Brain tumor back of the head, continues to be watched. 16. Pulmonary edema, history of pulmonary embolus. 17. Deep venous thrombosis of right lower extremity. 18. Gastroesophageal reflux. 19. Sleep apnea, 2 liters O2. 20. Congestive heart failure. 21. Peripheral artery disease. 22. Depression. 23. Chronic back pain. [facility] [address] [place] [address] PAIN MANAGEMENT CONSULTATION Name: ESTEBAN ORO Room #: REG LAWRENCE Nidia#: [id number] Admission: 06/23/18 Attend Phys: Jennifer Longoria MD Discharge: Date of : 37 Report #: [id number] 24. Degenerative joint disease. RECOMMENDATIONS: We discussed treatment options with the patient. She will monitor the amount of opioid medication she is taking. She is now aware that she was only supposed to take two methadone tablets daily. She will adhere to that regimen. She is also having pain and discomfort in the left and right posterior superior iliac spine areas. Palpation in these areas cause the patient to wince and pullback abruptly. Appears to have trigger points in these areas. She will return in the future. She will stop taking her Coumadin. We would then proceed with a trigger point injection to the left and right posterior superior iliac spine areas. We would like to thank you for letting us participate in her care. The patient has been given a script for 16 methadone tablets. She will take 1 p.o. b.i.d. as directed. <ELECTRONICALLY SIGNED> By: Jennifer Longoria MD 07/05/18 1124 [id number] [id number] MD MAINE Peoples
[2018-06-23 09:56] VITALS: BP 135/68
== END ==
LOC: PAIN 06:53
DX: M54.16 Radiculopathy, lumbar region (principal); J44.9 Chronic obstructive pulmonary disease, unspecified; M79.18 Myalgia, other site; R07.9 Chest pain, unspecified; I25.10 Atherosclerotic heart disease of native coronary artery without angina pectoris; I21.9 Acute myocardial infarction, unspecified; I10 Essential (primary) hypertension; E11.9 Type 2 diabetes mellitus without complications; E78.00 Pure hypercholesterolemia, unspecified; K29.70 Gastritis, unspecified, without bleeding; N20.0 Calculus of kidney; M19.90 Unspecified osteoarthritis, unspecified site; N31.2 Flaccid neuropathic bladder, not elsewhere classified; I82.819 Embolism and thrombosis of superficial veins of unspecified lower extremity; G89.29 Other chronic pain; F32.9 Major depressive disorder, single episode, unspecified; I73.9 Peripheral vascular disease, unspecified; I50.9 Heart failure, unspecified; G47.33 Obstructive sleep apnea (adult) (pediatric); K21.9 Gastro-esophageal reflux disease without esophagitis; I82.401 Acute embolism and thrombosis of unspecified deep veins of right lower extremity; J81.1 Chronic pulmonary edema; C71.9 Malignant neoplasm of brain, unspecified; Z79.899 Other long term (current) drug therapy

== ENCOUNTER → 2018-07-02 | Outpatient (CLI) | payer OTHER ==
[~2018-07-02] VITALS: Ht 162.6 cm; Wt 110.9 kg
[~2018-07-02] MED LIST changes: -CEFDINIR300 MG PO; -LUTEIN40 MG; -VITAMIN B; -VITAMIN D2400 UNIT PO; -[UNRECOGNIZED DRUG - OTHER]
--- NOTE | ~2018-07-02 | HPC ---
[facility] [place] [address] PAIN MANAGEMENT CONSULTATION Name: DONNACINDYDENZELESTEBAN ANN Room #: REG [facility] Nidia#: [id number] Admission: 07/02/18 Attend Phys: Jennifer Longoria MD Discharge: Date of : 37 Report #: [id number] THIS REPORT FOR: //name// CC: Jennifer Bobo DATE OF SERVICE: 07/02/2018 HISTORY: Here for injections in the back. HISTORY OF PRESENT ILLNESS: The patient is an 83-year-old female who has been followed in the pain clinic. She has history of problems and discomfort in the low back area. She does have some myofascial pain in the lower portion of her back. At the last visit, palpation in this area did reproduce some pain and discomfort in the left and right low back area in the L5 paraspinous areas. She has returned today for treatment. We have discussed the possible complications of trigger point injections. Overall, the patient is having significant amount of pain and discomfort, which limits her ability to engage in activities. She has returned today for trigger point injections. ALLERGIES: CODEINE, MORPHINE, FENTANYL. MEDICATIONS: OxyContin 7.5 mg, methadone 10 mg 1 p.o. b.i.d., baclofen 10 mg 1-2 tablets with spasms, Tegretol 200 mg b.i.d., Bystolic 5 mg b.i.d., Demadex 20 mg total of 40 mg daily, albuterol inhaler 2 puffs q.4 hours p.r.n., vitamin B12 1000 mcg, Protonix 40 mg, Coumadin 8 mg, Flomax 0.4 mg, Anoro Ellipta 62.5/25 inhalation, albuterol, MiraLax 17 grams b.i.d., losartan 50, mg, 100 mg total, Aricept 5 mg, total of 10 mg daily, Norvasc 5 mg a total of 10 mg daily, Cymbalta 60 mg b.i.d., Lipitor 20 mg, total of 40 mg, vitamin D3 2000 unit capsules, lutein 20 mg, Singulair 10 mg, trazodone 100 mg/150 mg at bedtime, insulin 12 units subq, detemir 50/80 units subq b.i.d. one-half dose 22 units. PAIN CLINIC ASSESSMENT/PQRS: 1. Generalized history of osteoarthritis. The patient is not being treated specifically for rheumatoid arthritis. 2. Height 5 feet 5 inches, weight 244 pounds, BMI is 41.9 2. Vital signs: Blood pressure 140/73, pulse 72, respiratory rate 18 and room air saturation 98%. 3. Pain intensity 10. 4. Fall risk. The patient has not fallen in the last 3 months, but does need some assistance with ambulation. 5. Blood thinner. The patient is on Coumadin. She has stopped the Coumadin over the last few days with anticipation of undergoing trigger point injections. 6. History of hypertension. The patient is being treated for hypertension. 7. Opioids. The patient receives her medications through the pain clinic [facility]. [address] [address] PAIN MANAGEMENT CONSULTATION Name: ESTEBAN ORO JACKIE Room #: REG [facility] Jacob#: [id number] Admission: 07/02/18 Attend Phys: Jennifer Longoria MD Discharge: Date of : 37 Report #: [id number] 8. Risk assessment tool. 9. Functional assessment tool . 10. Recreational drug use. The patient denies use of recreational drugs. 11. Tobacco: The patient is a former smoker. 12. Alcohol: The patient denies use of alcoholic beverages. PHYSICAL EXAMINATION: GENERAL: The patient is a well-developed, well-nourished, obese white female. Appears her stated age. She is alert and oriented x 3. She is using supplemental 3 liters per minute. Has difficulty moving from chair to the examination table. Has pain in the posterior superior iliac spine areas left and right. Palpation in these areas do reproduce pain and discomfort in the affected areas, Two trigger points were noted, one in the left posterior iliac spine near the gluteus lars and latissimus dorsi. Second trigger point on the contralateral side in the same place. IMPRESSION: 1. Myofascial pain in the lumbar area. 2. Lumbar radiculopathy with history of spinal stenosis and axial back pain. 3. Chronic obstructive pulmonary disease. 4. Chest pain. 5. Coronary artery disease. 6. Myocardial infarct. 7. Hypertension. 8. Insulin-dependent diabetes mellitus. 9. Hypercholesterolemia. 10. Gastritis. 11. Nephrolithiasis. 12. Osteoarthritis. 13. Atonic bladder, recurrent. 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 15. Brain tumor in the back of the head, continues to be watched. 16. Pulmonary edema, history of pulmonary embolus. 19. Deep venous thrombosis of right lower extremity. 20. Gastroesophageal reflux. 21. Sleep apnea 2 liters or 3 liters O2. 22. Congestive heart failure. 23. Peripheral artery disease. 24. Depression. 25. Chronic back pain. 26. Degenerative joint disease. RECOMMENDATIONS: We discussed treatment options with the patient and her daughter. Risks and benefits of a trigger point injection to the affected area were reviewed. Possible complication of the procedure, which could include but are not limited to infection, increased muscle soreness, bleeding, worsening of [facility] [address] [place] [address] PAIN MANAGEMENT CONSULTATION Name: DONNACINDYESTEBAN ANN [facility] [id number] Admission: 07/02/18 Attend Phys: Jennifer Longoria MD Discharge: Date of : 37 Report #: [id number] pain, no improvement in pain, nerve damage. The patient elects to proceed. PROCEDURE NOTE: The patient was placed in the seated position. She was perpendicular to the bed. The bed was elevated. A chair was placed under her feet. The patient's back was then sterilely prepped with a chlorhexidine solution and allowed to dry. Palpation reveals a trigger point in the right posterior superior iliac spine area near the latissimus dorsi and gluteus lars. Trigger point was noted. A 25-gauge needle was then advanced into the area of the trigger point. The patient states that this did reproduce her discomfort. A total of 60 mg triamcinolone with 10 mL of 0.5% bupivacaine was injected. The patient tolerated that right side well. The contralateral left side was then treated in a like fashion. A 25-gauge needle was then advanced into the area of the posterior superior iliac spine near the latissimus dorsi and gluteus lars. The patient states this did reproduce her discomfort. Total of 10 mL of 0.5% bupivacaine and 60 mg of triamcinolone was injected. The patient tolerated the procedure well. She was taken to the recovery room. No increased bleeding was noted. The patient will resume use of Coumadin tonight. We would like to thank you for letting us participate in her care. We hope she continues to improve. <ELECTRONICALLY SIGNED> By: Jennifer Longoria MD 07/05/18 1125 1715 [id number] Jennifer Longoria MD /nt
[2018-07-02 11:12] VITALS: BP 140/73
== END | disposition home or self-care (01) ==
LOC: PAIN 07:05
DX: M79.10 Myalgia, unspecified site (principal); M54.16 Radiculopathy, lumbar region; M48.061 Spinal stenosis, lumbar region without neurogenic claudication; J44.9 Chronic obstructive pulmonary disease, unspecified; I25.10 Atherosclerotic heart disease of native coronary artery without angina pectoris; I25.2 Old myocardial infarction; E11.9 Type 2 diabetes mellitus without complications; I11.0 Hypertensive heart disease with heart failure; I50.9 Heart failure, unspecified; E78.00 Pure hypercholesterolemia, unspecified; K29.70 Gastritis, unspecified, without bleeding; N20.0 Calculus of kidney; M19.90 Unspecified osteoarthritis, unspecified site; N31.2 Flaccid neuropathic bladder, not elsewhere classified; I82.90 Acute embolism and thrombosis of unspecified vein; D49.6 Neoplasm of unspecified behavior of brain; J81.1 Chronic pulmonary edema; K21.9 Gastro-esophageal reflux disease without esophagitis; G47.30 Sleep apnea, unspecified; Z99.81 Dependence on supplemental oxygen; I73.9 Peripheral vascular disease, unspecified; F32.9 Major depressive disorder, single episode, unspecified; G89.29 Other chronic pain; Z88.8 Allergy status to other drugs, medicaments and biological substances; Z79.899 Other long term (current) drug therapy; Z79.4 Long term (current) use of insulin; Z86.718 Personal history of other venous thrombosis and embolism; Z79.891 Long term (current) use of opiate analgesic; Z87.891 Personal history of nicotine dependence; Z79.01 Long term (current) use of anticoagulants

== ENCOUNTER 2018-07-07 19:04 | Inpatient (IN) | payer OTHER ==
[~2018-07-07] VITALS: Ht 162.6 cm; Wt 110.2 kg
[2018-07-07 19:07] VITALS: BP 133/82
[2018-07-07 20:47] LABS: HEMATOCRIT 33.9 % (37.0-47.0); HEMOGLOBIN 11.1 gm/dL (12.0-15.0); MCH 30.7 pg (26.0-34.0); MCHC 32.8 g/dL (28.0-37.0); MCV 93.8 fL (80.0-100.0); RBC 3.62 mil/uL (4.20-5.00); WBC 12.3 thou/uL (4.0-11.0)
[2018-07-07] MEDS ORDERED: PREDNISONE 10 M10 MG PO (20:54)
[2018-07-07 20:56] LABS: CALCIUM 9.2 mg/dL (8.5-10.1); CREATININE 2.2 mg/dL (0.6-1.0); POTASSIUM 4.5 mmol/L (3.5-5.1)
[2018-07-07] MEDS ORDERED: LUTEIN40 MG (20:56)
[2018-07-07] MEDS ORDERED: VITAMIN D2400 UNIT PO (20:57)
[2018-07-07] MEDS ORDERED: [UNRECOGNIZED DRUG - OTHER] (20:57)
[2018-07-07] MEDS ORDERED: VITAMIN B (20:57)
[2018-07-07 20:59] LABS: URINE BILIRUBIN NEGATIVE (Negative); URINE BLOOD 1+ (Negative); URINE CLARITY CLEAR; URINE COLOR YELLOW; URINE GLUCOSE-RANDOM* 3+ (Negative); URINE KETONES NEGATIVE (Negative); URINE LEUKOCYTES-REFLEX NEGATIVE (Negative); URINE NITRITE-REFLEX NEGATIVE (Negative); URINE PROTEIN (DIPSTICK) 2+ (Negative); URINE UROBILINOGEN 0.2 E.U./dl (0.2-1.0)
[2018-07-07 21:01] LABS: HCO3 28.6 mmol/L (22.0-26.0); PCO2 VENOUS 54.8 mmHg (41.0-51.0); PO2 VENOUS 46.6 mmHg (35.0-45.0)
[2018-07-07 21:09] LABS: CASTS None Seen /LPF (None Seen); CRYSTALS None Seen /LPF (None Seen); SQUAMOUS 0-3 Few /LPF (0-3); URINE WBC-REFLEX 0-5 Rare /HPF (0-5)
[2018-07-07 21:10] LABS: BACTERIA-REFLEX 1-9 Few /HPF (None Seen); URINE RBC 0-2 Rare /HPF (0-2)
[2018-07-07 23:37] VITALS: BP 198/90
[2018-07-07 23:45] VITALS: BP 198/90
[2018-07-08 00:15] VITALS: BP 209/82
[2018-07-08 03:57] VITALS: BP 153/65
[2018-07-08 07:03] VITALS: BP 158/69
[2018-07-08 11:41] VITALS: BP 158/69
[2018-07-08] MEDS ORDERED: CEFDINIR300 MG PO (14:45)
[2018-07-08 15:50] VITALS: BP 158/69
== END 2018-07-08 16:32 | disposition home or self-care (01) | DRG 638 ==
LOC: ER 19:04 → 4E 23:17 → EROBS 23:17 → 4E 23:59 → ENTRNSPT 07-08 16:14 → 4E 07-08 16:32
PROVIDERS: Emergency Medicine
DX: E11.65 Type 2 diabetes mellitus with hyperglycemia (principal); I50.30 Unspecified diastolic (congestive) heart failure; E87.2 Acidosis; I25.10 Atherosclerotic heart disease of native coronary artery without angina pectoris; E78.00 Pure hypercholesterolemia, unspecified; M19.90 Unspecified osteoarthritis, unspecified site; K21.9 Gastro-esophageal reflux disease without esophagitis; E11.51 Type 2 diabetes mellitus with diabetic peripheral angiopathy without gangrene; E86.0 Dehydration; M75.100 Unspecified rotator cuff tear or rupture of unspecified shoulder, not specified as traumatic; G89.29 Other chronic pain; M54.9 Dorsalgia, unspecified; Z96.652 Presence of left artificial knee joint; F32.9 Major depressive disorder, single episode, unspecified; Z86.718 Personal history of other venous thrombosis and embolism; Z88.6 Allergy status to analgesic agent; I25.2 Old myocardial infarction; Z95.1 Presence of aortocoronary bypass graft; Z79.4 Long term (current) use of insulin; Z90.49 Acquired absence of other specified parts of digestive tract; Z87.442 Personal history of urinary calculi; Z98.42 Cataract extraction status, left eye; Z98.41 Cataract extraction status, right eye; Z90.710 Acquired absence of both cervix and uterus; Z86.711 Personal history of pulmonary embolism; Z95.5 Presence of coronary angioplasty implant and graft; Z88.8 Allergy status to other drugs, medicaments and biological substances; Z87.891 Personal history of nicotine dependence; Z79.84 Long term (current) use of oral hypoglycemic drugs
CPT/HCPCS: 10183

== ENCOUNTER 2018-07-30 07:17 | Emergency (ER) | payer OTHER ==
[~2018-07-30] VITALS: Ht 167.6 cm; Wt 109.3 kg
[~2018-07-30 07:17] MED LIST changes: +CEFDINIR300 MG PO; +LUTEIN40 MG; +VITAMIN B; +VITAMIN D2400 UNIT PO; +[UNRECOGNIZED DRUG - OTHER]
[2018-07-30 10:34] VITALS: BP 156/99
== END 2018-07-30 10:36 | disposition home or self-care (01) ==
LOC: ER 07:17
DX: S82.831A Other fracture of upper and lower end of right fibula, initial encounter for closed fracture (principal); I25.10 Atherosclerotic heart disease of native coronary artery without angina pectoris; I25.2 Old myocardial infarction; E11.51 Type 2 diabetes mellitus with diabetic peripheral angiopathy without gangrene; E11.43 Type 2 diabetes mellitus with diabetic autonomic (poly)neuropathy; K31.84 Gastroparesis; E78.00 Pure hypercholesterolemia, unspecified; M19.90 Unspecified osteoarthritis, unspecified site; Z86.711 Personal history of pulmonary embolism; Z86.718 Personal history of other venous thrombosis and embolism; K21.9 Gastro-esophageal reflux disease without esophagitis; G47.00 Insomnia, unspecified; I50.9 Heart failure, unspecified; G89.29 Other chronic pain; Z96.652 Presence of left artificial knee joint; Z79.4 Long term (current) use of insulin; Z79.01 Long term (current) use of anticoagulants; Z79.899 Other long term (current) drug therapy; Z88.5 Allergy status to narcotic agent; Z88.8 Allergy status to other drugs, medicaments and biological substances; Z87.891 Personal history of nicotine dependence; Z95.5 Presence of coronary angioplasty implant and graft; Z90.49 Acquired absence of other specified parts of digestive tract; W18.30XA Fall on same level, unspecified, initial encounter; Y93.89 Activity, other specified; Y92.89 Other specified places as the place of occurrence of the external cause; Y99.8 Other external cause status

== ENCOUNTER → 2018-08-18 | Outpatient (CLI) | payer OTHER ==
[~2018-08-18] VITALS: Ht 162.6 cm; Wt 109.5 kg
[~2018-08-18] MED LIST changes: +OXYCODONE-APAP1 EAC6 PO
[2018-08-18 11:11] VITALS: BP 127/68
== END ==
LOC: PAIN 08-17 10:34
DX: M54.5 Low back pain (principal); M79.604 Pain in right leg; M79.605 Pain in left leg; G89.29 Other chronic pain; Z79.899 Other long term (current) drug therapy

== ENCOUNTER → 2018-10-15 | Outpatient (CLI) | payer OTHER ==
[~2018-10-15] VITALS: Ht 162.6 cm; Wt 112.8 kg
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
[2018-10-15 13:16] VITALS: BP 136/87
--- NOTE | 2018-10-15 13:38 | NUR ---
Pain Clinic Assessment: 1. History of Osteoarthritis: GENERALIZED History of Rheumatoid Arthritis: Not Applicable 2. Height: 5 ft. 4 in. 162.6 cm. Weight: 248.6 lb. oz. 112.764 kg. Patient's BMI: 42.7 3. Vital Signs: BP: 136/87 Pulse: 88 Resp: 14 Temp: 02 Sat: 99 ECG Mon: 4. Pain Intensity: 7-8 5. Fall Risk: Dizziness: N Needs help standing or walking: Y Fallen in the last 3 months: N Fall risk comments: 6. Patient on Blood Thinner: Warfarin (Coumadin) 7. History of Hypertension: Y 8. Opioid Therapy greater than 6 weeks: Y Opiate Contract Signed: 11/06/17 9. Risk Assessment Tool Provided: Opioid Risk Tool 10. Functional Assessment Tool: 11. Recreational Drug Use: Never Drug Type: Tobacco Use: Former Smoker Tobacco Type: Amount or Packs/day: How Many Years: Alcohol Use: No Frequency: Quant:
== END ==
LOC: PAIN 07:07
DX: M48.061 Spinal stenosis, lumbar region without neurogenic claudication (principal); R07.9 Chest pain, unspecified; M79.18 Myalgia, other site; M19.90 Unspecified osteoarthritis, unspecified site; J44.9 Chronic obstructive pulmonary disease, unspecified; I25.10 Atherosclerotic heart disease of native coronary artery without angina pectoris; E11.9 Type 2 diabetes mellitus without complications; E78.00 Pure hypercholesterolemia, unspecified; I11.0 Hypertensive heart disease with heart failure; I50.9 Heart failure, unspecified; K21.9 Gastro-esophageal reflux disease without esophagitis; G47.30 Sleep apnea, unspecified; K29.70 Gastritis, unspecified, without bleeding; N20.0 Calculus of kidney; J81.1 Chronic pulmonary edema; N31.2 Flaccid neuropathic bladder, not elsewhere classified; D49.6 Neoplasm of unspecified behavior of brain; I82.819 Embolism and thrombosis of superficial veins of unspecified lower extremity; Z79.899 Other long term (current) drug therapy; Z79.4 Long term (current) use of insulin

== ENCOUNTER → 2018-11-03 | Outpatient (CLI) | payer OTHER | LOC: RAD 11:46 | DX: I11.0 Hypertensive heart disease with heart failure (principal); I50.9 Heart failure, unspecified; J84.10 Pulmonary fibrosis, unspecified; J44.1 Chronic obstructive pulmonary disease with (acute) exacerbation ==

== ENCOUNTER → 2018-11-12 | Outpatient (CLI) | payer OTHER ==
[~2018-11-12] VITALS: Ht 162.6 cm; Wt 111.0 kg
[~2018-11-12] MED LIST changes: +BELSOMRA20 MG PO
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
[2018-11-12 11:21] VITALS: BP 168/73
--- NOTE | 2018-11-12 11:42 | NUR ---
Pain Clinic Assessment: 1. History of Osteoarthritis: GENERALIZED History of Rheumatoid Arthritis: Not Applicable 2. Height: 5 ft. 4 in. 162.6 cm. Weight: 244.8 lb. oz. 111.041 kg. Patient's BMI: 42.0 3. Vital Signs: BP: 168/73 Pulse: 80 Resp: 16 Temp: 02 Sat: 99 ECG Mon: 4. Pain Intensity: 7 5. Fall Risk: Dizziness: N Needs help standing or walking: Y Fallen in the last 3 months: N Fall risk comments: 6. Patient on Blood Thinner: Warfarin (Coumadin) 7. History of Hypertension: Y 8. Opioid Therapy greater than 6 weeks: Y Opiate Contract Signed: 11/06/17 9. Risk Assessment Tool Provided: Opioid Risk Tool 10. Functional Assessment Tool: 11. Recreational Drug Use: Never Drug Type: Tobacco Use: Former Smoker Tobacco Type: Amount or Packs/day: How Many Years: Alcohol Use: No Frequency: Quant:
[2018-11-12 13:03] LABS: PROTIME 10.4 Seconds (9.3-11.4)
== END | disposition home or self-care (01) ==
LOC: PAIN 11-05 07:02
PROVIDERS: Anesthesiology Pain Medicine
DX: M79.18 Myalgia, other site (principal); M54.5 Low back pain; G89.29 Other chronic pain; I11.0 Hypertensive heart disease with heart failure; I50.9 Heart failure, unspecified; I25.10 Atherosclerotic heart disease of native coronary artery without angina pectoris; J44.9 Chronic obstructive pulmonary disease, unspecified; I25.2 Old myocardial infarction; E11.40 Type 2 diabetes mellitus with diabetic neuropathy, unspecified; E78.00 Pure hypercholesterolemia, unspecified; K29.70 Gastritis, unspecified, without bleeding; I82.891 Chronic embolism and thrombosis of other specified veins; M19.90 Unspecified osteoarthritis, unspecified site; G47.33 Obstructive sleep apnea (adult) (pediatric); K21.9 Gastro-esophageal reflux disease without esophagitis; F32.9 Major depressive disorder, single episode, unspecified; Z98.890 Other specified postprocedural states; Z79.4 Long term (current) use of insulin; Z79.01 Long term (current) use of anticoagulants; Z88.8 Allergy status to other drugs, medicaments and biological substances; Z79.891 Long term (current) use of opiate analgesic; Z87.891 Personal history of nicotine dependence; Z79.899 Other long term (current) drug therapy

== ENCOUNTER → 2018-12-08 | Outpatient (CLI) | payer OTHER ==
[~2018-12-08] VITALS: Ht 162.6 cm; Wt 112.0 kg
[2018-12-08 11:21] VITALS: BP 173/68
--- NOTE | 2018-12-08 11:28 | NUR ---
Pain Clinic Assessment: 1. History of Osteoarthritis: GENERALIZED History of Rheumatoid Arthritis: Not Applicable 2. Height: 5 ft. 4 in. 162.6 cm. Weight: 247.0 lb. oz. 112.039 kg. Patient's BMI: 42.4 3. Vital Signs: BP: 173/68 Pulse: 76 Resp: 18 Temp: 02 Sat: 94 ECG Mon: 4. Pain Intensity: 5 5. Fall Risk: Dizziness: N Needs help standing or walking: Y Fallen in the last 3 months: N Fall risk comments: 6. Patient on Blood Thinner: Warfarin (Coumadin) 7. History of Hypertension: Y 8. Opioid Therapy greater than 6 weeks: Y Opiate Contract Signed: 11/06/17 9. Risk Assessment Tool Provided: Opioid Risk Tool 10. Functional Assessment Tool: 11. Recreational Drug Use: Never Drug Type: Tobacco Use: Former Smoker Tobacco Type: Amount or Packs/day: How Many Years: Alcohol Use: No Frequency: Quant:
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
== END ==
LOC: PAIN 07:10
DX: M54.5 Low back pain (principal); J44.9 Chronic obstructive pulmonary disease, unspecified; R07.9 Chest pain, unspecified; I25.10 Atherosclerotic heart disease of native coronary artery without angina pectoris; I10 Essential (primary) hypertension; E11.9 Type 2 diabetes mellitus without complications; E78.00 Pure hypercholesterolemia, unspecified; M19.90 Unspecified osteoarthritis, unspecified site; K21.9 Gastro-esophageal reflux disease without esophagitis; G47.33 Obstructive sleep apnea (adult) (pediatric); G89.29 Other chronic pain; F32.9 Major depressive disorder, single episode, unspecified; I50.9 Heart failure, unspecified; G62.9 Polyneuropathy, unspecified; J81.1 Chronic pulmonary edema; N31.2 Flaccid neuropathic bladder, not elsewhere classified; I82.819 Embolism and thrombosis of superficial veins of unspecified lower extremity; I12.9 Hypertensive chronic kidney disease with stage 1 through stage 4 chronic kidney disease, or unspecified chronic kidney disease; N20.0 Calculus of kidney; K29.70 Gastritis, unspecified, without bleeding; Z79.899 Other long term (current) drug therapy

== ENCOUNTER → 2018-12-27 | Outpatient (CLI) | payer OTHER | LOC: EDSTATUS 09:34 → NUC 11:29 | DX: M85.852 Other specified disorders of bone density and structure, left thigh (principal); Z88.8 Allergy status to other drugs, medicaments and biological substances; Z88.5 Allergy status to narcotic agent; Z88.1 Allergy status to other antibiotic agents; Z78.0 Asymptomatic menopausal state ==

== ENCOUNTER → 2019-02-02 | Outpatient (CLI) | payer OTHER ==
[~2019-02-02] VITALS: Ht 162.6 cm; Wt 115.1 kg
[~2019-02-02] MED LIST changes: +BYSTOLIC10 MG PO; +COZAAR100 MG PO; +LIORESAL 10 MG10 MG PO; -LUTEIN40 MG; +NORVASC10 MG PO; -NORVASC5 MG PO
[2019-02-02 10:48] VITALS: BP 140/51
--- NOTE | 2019-02-02 11:03 | NUR ---
Pain Clinic Assessment: 1. History of Osteoarthritis: GENERALIZED History of Rheumatoid Arthritis: Not Applicable 2. Height: 5 ft. 4 in. 162.6 cm. Weight: 253.8 lb. oz. 115.123 kg. Patient's BMI: 43.5 3. Vital Signs: BP: 140/51 Pulse: 80 Resp: 16 Temp: 02 Sat: 98 ECG Mon: 4. Pain Intensity: 4 5. Fall Risk: Dizziness: Y Needs help standing or walking: Y Fallen in the last 3 months: Y Fall risk comments: 6. Patient on Blood Thinner: Warfarin (Coumadin) 7. History of Hypertension: Y 8. Opioid Therapy greater than 6 weeks: Y Opiate Contract Signed: 11/06/17 9. Risk Assessment Tool Provided: Opioid Risk Tool 10. Functional Assessment Tool: 11. Recreational Drug Use: Never Drug Type: Tobacco Use: Former Smoker Tobacco Type: Amount or Packs/day: How Many Years: Alcohol Use: No Frequency: Quant:
--- NOTE | 2019-02-03 08:11 | HPC ---
[facility] [address] [place] [address] PAIN MANAGEMENT CONSULTATION Name: ESTEBAN ORO Room #: REG Leisa Jacob#: [id number] Admission: 02/02/19 ������������������ Attend Phys: Savita Dominique Discharge: ������������������ Date of : 37 Report #: [id number] THIS REPORT FOR: //name// CC: Savita Dominique Titi Bobo DATE OF SERVICE: 02/02/2019 CHIEF COMPLAINT: Low back pain, bilateral leg pain and left hip pain. HISTORY OF PRESENT ILLNESS: This is a pleasant 83-year-old female who returns to the pain clinic today for refill of her medications. She tells me that the injection that Dr. Longoria performed on her in October only helped about 50%, though she tells the nurse that it was not helpful at all and she has told the family members who were present here today that it was not helpful. She tells me that she does not feel that her meds are helping as well as they had in the past, wondering if there was anything changes that we could do. She tells me most of her pain is located in her lower back and left hip and thigh. It does radiate into her thigh. It is worse in the morning and at late afternoon or early evening, rating it 4/10 today, worse with activity and walking or sitting too long, medications and lying down are helpful in relieving some of this pain. She tells me that epidurals used to help in the past, but do not seem as beneficial as they had before. She would like her medication refills today or possibly even an increase. ALLERGIES: ADHESIVE TAPE, MORPHINE, CODEINE, DOXYCYCLINE, CITALOPRAM AND TIZANIDINE. CURRENT LIST OF MEDICATIONS: Amlodipine 10 mg daily, Cymbalta 60 mg b.i.d., Lipitor 40 mg at bedtime, vitamin D daily, Singulair 10 mg at bedtime, insulin daily, Humalog and Levemir, oxycodone 7.5/325 t.i.d., methadone 10 mg b.i.d., Tegretol 200 mg b.i.d., baclofen 10 mg 1-2 at bedtime, Belsomra 20 mg at bedtime, Trelegy inhaler, Lutein, prednisone 10 mg daily, Aricept 10 mg b.i.d., Bystolic 10 mg daily, Demadex 20 mg daily, Ventolin inhaler, albuterol inhaler p.r.n., vitamin B12, Protonix, Coumadin is 8 mg daily, MiraLax daily and Cozaar. PQRS: 1. The patient has some arthritic changes in her hip. She has arthritic pain also in her hands. She is not being treated for rheumatoid arthritis. 2. VITAL SIGNS: Blood pressure 140/51, pulse is 80, respirations 16, oxygen sat is 98. 3. Height is 5 feet 4 inches, weight is 253. BMI is 43. 4. Pain score is 4/10. 5. Fall risk. Does complain of dizziness, does need help with walking and standing. She is in a wheelchair. She states she has fallen in the last [address] [address] PAIN MANAGEMENT CONSULTATION Name: ESTEBAN ORO JACKIE Room #: REG LAWRENCE Armstrong.#: [id number] Admission: 02/02/19 ������������������ Attend Phys: Savita Dominique Discharge: ������������������ Date of : 37 Report #: [id number] 6. The patient is on Coumadin and does take medicine for hypertension. 7. Opioid therapy is greater than 6 weeks; therefore, an opioid signed contract is on the chart. 8. Her risk assessment tool is . Her risk assessment is low. 9. Recreational drug use. She denies. She is a former smoker and does not drink alcohol. PHYSICAL EXAMINATION: GENERAL: This is a well-developed, well-nourished, obese female who appears her stated age. She is alert and orientated, though does get confused at times when telling stories related to times and amount of medications. Her affect is appropriate. Speech is fluent. HEENT: Normocephalic, atraumatic. Extraocular eye muscles are intact. The right eye is open slightly larger than her left. She is on oxygen and a nasal cannula in place in her nose. NECK: Without adenopathy or JVD. EXTREMITIES: The patient is sitting in a wheelchair today. Complains of pain in her left hip that radiates into her left thigh encompassing her entire leg to her knee. Also, complains of tenderness across her lower back area. ASSESSMENT: 1. Lumbar pain, history of spinal stenosis and axial back pain. 2. Myofascial pain in the lumbar area. 3. Peripheral neuropathy. 4. Osteoarthritis. 5. Management of high-risk medications under terms of written an opioid agreement. 6. Depression. 7. Chronic back pain. 8. Degenerative joint disease. We reviewed the fact that opiate medications are being used to provide analgesia adequate to support activities of daily living, not attempting to achieve a specific pain score on the 0-10 Visual Analog Scale. The current opiate medications are providing sufficient analgesia to allow the patient to participate in activities of daily living. The patient is not exhibiting any aberrant behavior suggestive of drug diversion. The patient is not having any adverse reactions to medications. The patient is not suffering from daytime somnolence or mental acuity changes. The patient is managing opiate-induced constipation with appropriate [id number] agents and dietary considerations. The patient was counseled on concern for caution with operating a motor vehicle while using opiate medications. A physical exam was performed and the patient's functional status was evaluated. All patients with back pain were advised against the bed rest greater than 4 days and were advised to return to normal activities. Pain score assessment was [facility] [address] [place] [address] PAIN MANAGEMENT CONSULTATION Name: ESTEBAN ORO JACKIE Room #: REG [facility]#: [id number] Admission: 02/02/19 ������������������ Attend Phys: Savita Dominique Discharge: ������������������ Date of : 37 Report #: [id number] noted and the treatment plan was reviewed with the patient. All current medications, both prescribed and OTC were reviewed and reconciled on the electronic medical record. Tobacco screening was accomplished and smoking cessation was advised when indicated. BMI was noted and diet/exercise modification was recommended for all patients following outside normal parameters. I reviewed with the patient today their responsibilities to safeguard prescription medications, reviewed their responsibility to utilize medications only as prescribed by the physician. They are to seek and receive pain medications only from 1 physician group ([facility]). They are to use 1 pharmacy and keep the clinic informed if they change pharmacies. Their responsibilities include making followup visits in a timely fashion and to avoid abrupt discontinuation of medication usage. Their responsibilities further include bringing their medications (bottles from the pharmacy with residual pills) to the visit for possible confirmation of pill counts and the patient understands it is their responsibility to submit to random drug screens to ensure both that the medications prescribed are present, and that no other controlled substances are present. All prescriptions provided today were generated electronically. We did check the prescription monitoring system. The patient has been filling appropriately for her medications. She is due today and no aberrant use. We will check also a drug screen on this patient today since she had not had one in the past year. PLAN: 1. We discussed treatment options with the patient. She tells me that her pain score is not as well controlled as was in the past. Upon talking for quite significant amount of time with this patient greater than 20 minutes in total, she tells me that she takes her methadone 6 in the morning and then did not take her methadone until again at 9 at night; felt that she had increasing pain late in the day. We encouraged her to take her methadone at 6 in the morning and 6 at night. We also found out patient typically takes 2-3 tablets of her Percocet a day even though she is allowed 3-4. We understand that is lowest most effective dose, but if the patient is complaining of pain and feels that she is not getting good pain control, we encouraged her to take her Percocet 3 times a day if she needs to, space throughout the day every 6 hours. Then, if she needs an additional dose, she has one available for her days when she is more active. The patient verbalizes understanding and the daughter is here with her present today that will pass this information along to her daughter that helps with her medications at home. 2. Scripts given today for Percocet 7.5 q.i.d., #120 for 1 month and then Percocet 7.5 t.i.d. #90 for the release in 4 weeks, methadone 10 mg b.i.d., #60 to release today and in 4 weeks. 3. I did talk to the patient also about her baclofen, she is unsure if she [address] [place] [address] PAIN MANAGEMENT CONSULTATION Name: ESTEBAN ORO Room #: REG CLLeisa Jacob#: [id number] Admission: 02/02/19 ������������������ Attend Phys: Savita Dominique Discharge: ������������������ Date of : 37 Report #: [id number] takes 1 or 2 tablets at bedtime. She is allowed to take 2 at bedtime with 60 pills with her refills. She will verify this with her daughter who helps dispense her medicines at home. She tells me she does have some increased spasms later in the day in her back and legs. Script also given for carbamazepine 200 mg #60 with 2 additional refills. 4. We also discussed injections. The patient thinks that might be helpful. We went back to her previous conversation that she tells me they are not as effective as they once were. 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 5. The patient is seen with Dr. Darell Longoria who saw the patient and collaborated care. The patient will return in 2 months for medications. ��������������������������������������������� <ELECTRONICALLY SIGNED> ���������������������������������������� By: Savita Dominique ��������������������������������������������� 02/03/19 0811 [id number] Savita Dominique /nt
== END ==
LOC: PAIN 06:57
DX: M54.5 Low back pain (principal); R51 Headache; M19.90 Unspecified osteoarthritis, unspecified site; G89.29 Other chronic pain; F32.9 Major depressive disorder, single episode, unspecified; M79.605 Pain in left leg; M79.604 Pain in right leg; Z88.8 Allergy status to other drugs, medicaments and biological substances; Z79.899 Other long term (current) drug therapy; Z87.39 Personal history of other diseases of the musculoskeletal system and connective tissue

== ENCOUNTER → 2019-04-01 | Outpatient (CLI) | payer OTHER ==
[~2019-04-01] VITALS: Ht 162.6 cm; Wt 114.8 kg
[~2019-04-01] MED LIST changes: +KEFLEX500 M1 PO; +ZINC50 MG PO
--- NOTE | ~2019-04-01 | HPC ---
[facility] [place] [address] [place] [address] PAIN MANAGEMENT CONSULTATION Name: DONNACINDYDENZELESTEBAN ANN Room #: REG LAWRENCE Jacob#: [id number] Admission: 04/01/19 ������������������ Attend Phys: Jennifer Longoria MD Discharge: ������������������ Date of : 37 Report #: [id number] THIS REPORT FOR: //name// CC: Jennifer Bobo DATE OF SERVICE: 04/01/2019 CHIEF COMPLAINT: Low back and bilateral leg pain with left hip pain. HISTORY: The patient is an 84-year-old female who has been followed in the pain clinic because of chronic back pain. She has undergone epidural steroid injections in the past. She has returned today with continued pain in the low back and down into her legs bilaterally. She has a history of lumbar radiculopathy secondary to spinal stenosis. She has undergone radiofrequency neurolysis involving the L3, L4 and L5. This was in 02/01/2018. She continues to be oxygen dependent. She has COPD. The patient would like to undergo an epidural steroid injection. She is having pain and discomfort in the L5-S1 dermatomal distribution involving her right leg. Left side is problematic as well radiates down into her feet bilaterally. ALLERGIES: ADHESIVE TAPE, MORPHINE, CODEINE, DOXYCYCLINE, CITALOPRAM AND TIZANIDINE. CURRENT MEDICATIONS: Amlodipine 10 mg, Cymbalta 60 mg b.i.d., Lipitor 40 mg at bedtime, vitamin D, Singulair 10 mg at bedtime, insulin Humulin, Levemir, oxycodone 7.5 mg t.i.d., methadone 10 mg b.i.d., Tegretol 200 mg b.i.d., baclofen 10 mg 1-2 tablets at bedtime, Belsomra 20 mg at bedtime, Trelegy inhaler, Lutein, prednisone 10 mg, Aricept 10 mg b.i.d., Bystolic 10 mg daily, Demadex 20 mg, Ventolin inhaler, albuterol inhaler p.r.n., vitamin B12, Protonix, Coumadin 8 mg daily, and MiraLax daily, and Cozaar. PAIN CLINIC ASSESSMENT/PQRS: 1. The patient has some arthritic change in her hip also has pain in her feet and her hands. She has not been treated for rheumatoid arthritis. 2. Vital Signs: Blood pressure was 160/108, pulse 83, respiratory rate 16, room air saturation is 96%. 3. Height was 5 feet 4 inches, weight 253 pounds and BMI was 43.4. 4. Pain intensity 5/10. 5. Fall history: The patient has not fallen in the last 3 months. 6. Blood thinner. The patient is on Coumadin blood thinning medication. 7. History of hypertension. The patient has been treated for hypertension. 8. Opioid greater than 6 weeks. The patient continues to use medications as prescribed through the pain clinic. 9. Risk assessment tool for opioid risk moderate. 10. Functional assessment tool . [address] [address] PAIN MANAGEMENT CONSULTATION Name: ESTEBAN ORO JACKIE Room #: REG LAWRENCE Jacob#: [id number] Admission: 04/01/19 ������������������ Attend Phys: Jennifer Longoria MD Discharge: ������������������ Date of : 37 Report #: [id number] 11. Recreational drug use. The patient denies. 12. Tobacco: The patient is a former smoker. 13. Alcohol: The patient denies use of alcoholic beverages. PHYSICAL EXAMINATION: GENERAL: The patient is a well-developed, well-nourished, obese white female, appears her stated age. She is alert and oriented x 3. Her affect is appropriate. Speech is fluent. HEENT: Normocephalic, atraumatic. Extraocular eye muscles intact. Sclerae nonicteric, right eye opens slightly larger than the left. She is on oxygen via nasal cannula. NECK: Without adenopathy or JVD. EXTREMITIES: Upper extremity muscle strength is judged to be 4+/5 for the upper extremity. Complains of pain in her left hip with pain that radiates down into her left thigh, encompass down into the knee and right leg pain, which she describes as radiating down in the L5-S1 dermatomal distribution. She has generalized muscle tenderness and trigger points in the low back area. IMPRESSION: 1. Lumbar spinal stenosis with axial back pain as well as pain radiating down the L5-S1 dermatomal distribution involving the right side at this juncture. 2. Peripheral neuropathy. 3. Osteoarthritis. 4. Management of pain with high risk medications. 5. Depression. 6. Chronic back pain. 7. Degenerative joint disease. RECOMMENDATIONS: We discussed treatment options with the patient. At this juncture, her pain continues to be problematic. She would like to consider an epidural steroid injection to see note its efficacy for the lumbar radicular pain that is radiating down into her legs. She and her family are considering a cruise. She would like to go on a cruise. She would like for her pain to being better managed at that time. She will return to the pain clinic at which time she will then undergo an epidural steroid injection in the L4-L5 dermatomal distribution. She will call if she has any problems or concerns before this. She will need to stop her Coumadin medication 5-7 days prior to the procedure. We would like to thank you for letting us participate in her care. We hope she continues to improve. ��������������������������������������������� ���������������������������������������� By: ��������������������������������������������� 1050 [id number] Jennifer Longoria MD /nt
[2019-04-01 12:56] VITALS: BP 160/108
--- NOTE | 2019-04-01 13:07 | NUR ---
Pain Clinic Assessment: 1. History of Osteoarthritis: GENERALIZED History of Rheumatoid Arthritis: Not Applicable 2. Height: 5 ft. 4 in. 162.6 cm. Weight: 253.0 lb. oz. 114.760 kg. Patient's BMI: 43.4 3. Vital Signs: BP: 160/108 Pulse: 83 Resp: 16 Temp: 02 Sat: 96 ECG Mon: 4. Pain Intensity: 5 5. Fall Risk: Dizziness: N Needs help standing or walking: Y Fallen in the last 3 months: N Fall risk comments: 6. Patient on Blood Thinner: Warfarin (Coumadin) 7. History of Hypertension: Y 8. Opioid Therapy greater than 6 weeks: Y Opiate Contract Signed: 11/06/17 9. Risk Assessment Tool Provided: Opioid Risk Tool 10. Functional Assessment Tool: 11. Recreational Drug Use: Never Drug Type: Tobacco Use: Former Smoker Tobacco Type: Amount or Packs/day: How Many Years: Alcohol Use: No Frequency: Quant:
== END ==
LOC: PAIN 06:46
DX: M48.061 Spinal stenosis, lumbar region without neurogenic claudication (principal); G62.9 Polyneuropathy, unspecified; M19.90 Unspecified osteoarthritis, unspecified site; F32.9 Major depressive disorder, single episode, unspecified; M51.36 Other intervertebral disc degeneration, lumbar region; J44.9 Chronic obstructive pulmonary disease, unspecified; I10 Essential (primary) hypertension; M79.605 Pain in left leg; M79.604 Pain in right leg; Z79.899 Other long term (current) drug therapy; Z91.048 Other nonmedicinal substance allergy status; Z88.6 Allergy status to analgesic agent; Z88.8 Allergy status to other drugs, medicaments and biological substances

== ENCOUNTER 2019-04-10 10:50 | Inpatient (IN) | payer OTHER ==
[~2019-04-10] VITALS: Ht 170.2 cm; Wt 117.9 kg
--- NOTE | ~2019-04-10 | EEG ---
[facility] [place] [address] [place] [address] ELECTROENCEPHALOGRAM Name: ESTEBAN ORO JACKIE Room #: 216-P ADM IN M.R.#: [id number] ������������������ Admission: 04/10/19 ������������������ Attend Phys: Titi Bobo MD Discharge: ������������������ Date of : 37 Report #: [id number] ����������������������������������������������������������������� [id number] THIS REPORT FOR: //name// CC: Titi Morton DATE OF SERVICE: 04/11/2019 This patient is being evaluated for altered mental status. EEG was done by placing the electrode by standard 10-20 system of electrode placement. Both referential and sequential montages were used for recording. Background activity in this patient's EEG is about 8-9 Hz and 30 microvolt. That is a symmetrical activity. The patient became drowsy and that is associated with bilateral slowing and vertex sharp waves. Photic stimulation is unremarkable. Throughout the record, no active epileptiform activity was noticed. IMPRESSION: This patient's EEG is intermixed with theta range slowing on both sides. That is a nonspecific abnormality, which can occur with drowsiness, effect of psychotropic medication, dementia, etc. Clinical correlation is recommended. ���������������������������������������� ���������������������������������������� By: ��������������������������������������������� 1135 [id number] John Goldman MD /nt
[2019-04-10 11:05] VITALS: BP 157/88
[2019-04-10 11:25] LABS: URINE BILIRUBIN NEGATIVE (Negative); URINE BLOOD 3+ (Negative); URINE CLARITY CLOUDY; URINE COLOR YELLOW; URINE GLUCOSE-RANDOM* NEGATIVE (Negative); URINE KETONES NEGATIVE (Negative); URINE NITRITE-REFLEX NEGATIVE (Negative); URINE PROTEIN (DIPSTICK) 2+ (Negative); URINE UROBILINOGEN 0.2 E.U./dl (0.2-1.0)
[2019-04-10 11:26] LABS: URINE LEUKOCYTES-REFLEX 3+ (Negative)
[2019-04-10 11:51] LABS: CASTS None Seen /LPF (None Seen); CRYSTALS None Seen /LPF (None Seen); SQUAMOUS 0-3 Few /LPF (0-3); URINE RBC >20 Many /HPF (0-2); URINE WBC-REFLEX >25 Many /HPF (0-5)
[2019-04-10 11:52] LABS: BACTERIA-REFLEX >30 Many /HPF (None Seen)
[2019-04-10 11:53] LABS: WBC CLUMPS Moderate (None Seen)
[2019-04-10 12:14] LABS: ABSOLUTE NEUTROPHILS 10.7 thou/uL (1.4-8.2); BASOPHILS 0.6 % (0.0-2.0); EOSINOPHILS 1.4 % (0.0-3.0); HEMATOCRIT 31.4 % (37.0-47.0); HEMOGLOBIN 10.3 gm/dL (12.0-15.0); LYMPHOCYTES 10.3 % (24.0-44.0); MCH 30.1 pg (26.0-34.0); MCHC 32.8 g/dL (28.0-37.0); MCV 91.7 fL (80.0-100.0); MONOCYTES 9.3 % (1.0-8.0); PLATELET COUNT 246 thou/uL (150-400); POLYS 78.4 % (36.0-66.0); RBC 3.42 mil/uL (4.20-5.00); RDW 14.7 % (10.5-14.5); WBC 13.6 thou/uL (4.0-11.0)
[2019-04-10 12:23] LABS: ANION GAP 7 mmol/L (7-16); BUN 60 mg/dL (7-18); CALCIUM 8.4 mg/dL (8.5-10.1); CHLORIDE 107 mmol/L (98-107); CO2 32 mmol/L (21-32); CREATININE 1.8 mg/dL (0.6-1.0); GLUCOSE 212 mg/dL (74-106); POTASSIUM 4.3 mmol/L (3.5-5.1); SODIUM 146 mmol/L (136-145)
[2019-04-10 12:26] LABS: INR 2.9; PROTIME 29.9 Seconds (9.3-11.4)
[2019-04-10 12:32] LABS: ALBUMIN 2.8 g/dL (3.4-5.0); SGOT 19 U/L (15-37); SGPT 18 U/L (30-65); TOTAL BILIRUBIN 0.3 mg/dL (<0.1-1.0); TOTAL PROTEIN 6.4 g/dL (6.4-8.2); TROPONIN-I <0.06 ng/mL (<0.06)
[2019-04-10 13:47] VITALS: BP 165/82
[2019-04-10 15:05] VITALS: BP 183/103
[2019-04-10 18:00] VITALS: BP 151/97
[2019-04-10 18:06] LABS: FOLIC ACID 11.1 ng/mL (8.6-58.9); TSH 2.772 uIU/mL (0.358-3.740)
--- NOTE | 2019-04-10 18:39 | NUR ---
PT ADMITTED FROM ED FOR UTI, CARLIN, POSSIBLE PNEUMONIA. IV ABTs TO BE GIVEN. PT ALERT AND ORIENTED TO SELF, PLACE AND SITUATION. CONFUSED TO TIME AND IN CONVERSATION. FORGETFUL WELL. DENIES SOA. REPORTS HEADACHE 03/30. BP ELEVATED. DR HOLCOMB NOTIFIED AND ORDERS GIVEN. BP RESPONDED TO INTERVENTION. PT DENIES PAIN AT THIS TIME. BS ELEVATED BUT NO INSULIN ORDERS WERE IN AT THE TIME. WILL F/U WITH CURRENT MED ORDERS. FAMILY AT BEDSIDE UPON ARRIVAL AND RECEIVED CLINICAL UPDATE AND INFORMED ON POC. ALL DENY QUESTIONS AND CONCERNS. PT TOLERATED ABT AND TOLERATING IVF. NEW PIV PLACED. NO DISTRESS NOTED.
--- NOTE | 2019-04-10 18:46 | NUR ---
PHARMACY HAS NOT SENT PIPERCILLIN BECAUSE SHE WANTS TO DISCUSS WITH DR RUVALCABA. DUE AT 1300 BUT REMAINS UNGIVEN. PHARMACY WILL F/U.
[2019-04-10 19:50] VITALS: BP 157/62
--- NOTE | 2019-04-10 19:54 | EKG ---
[address] [address] ELECTROCARDIOGRAM REPORT Name: ESTEBAN ORO Room #: 216-P ADM IN M.R.#: [id number] ������������������ Admission: 04/10/19 ������������������ Attend Phys: Titi Bobo MD Discharge: ������������������ Date of : 37 Report #: [id number] ����������������������������������������������������������������� [id number] THIS REPORT FOR: //name// [facility] ED Test Date: 2019-04-10 Test Time: 11:39:23 Pat Name: ESTEBAN DONNACINDY Department: Room: [facility] Gender: F [employer] Specialist: NATE : 1935 Requested By: Erin Whitney Order Number: [id number] MD: Osei Barr Measurements Intervals [place] Rate: 72 P: 21 GA: 131 QRS: 36 QRSD: 94 T: 98 QT: 375 QTc: 411 Interpretive Statements Sinus arrhythmia Probable LVH with secondary repol abnrm Baseline wander in lead(s) V4 Compared to ECG 03/26/2019 18:15:55 Sinus rhythm no longer present ST (T wave) deviation no longer present Electronically Signed On 04-10-2019 19:54:39 CDT by Osei Barr [email or web address] ��������������������������������������������� <ELECTRONICALLY SIGNED> ���������������������������������������� By: Osei Barr MD ��������������������������������������������� 04/10/19 1954 1139 38 Osei Barr MD /EPI
[2019-04-10 23:25] VITALS: BP 126/82
[2019-04-11 03:54] VITALS: BP 150/63
[2019-04-11 05:18] LABS: HEMATOCRIT 30.7 % (37.0-47.0); HEMOGLOBIN 9.9 gm/dL (12.0-15.0); MCH 30.9 pg (26.0-34.0); MCHC 32.2 g/dL (28.0-37.0); MCV 95.7 fL (80.0-100.0); RBC 3.21 mil/uL (4.20-5.00); RDW 15.3 % (10.5-14.5); WBC 9.3 thou/uL (4.0-11.0)
[2019-04-11 05:25] LABS: CALCIUM 8.6 mg/dL (8.5-10.1); CREATININE 1.8 mg/dL (0.6-1.0); POTASSIUM 4.3 mmol/L (3.5-5.1)
[2019-04-11 08:42] VITALS: BP 174/68
[2019-04-11 13:21] VITALS: BP 152/98
[2019-04-11 16:06] VITALS: BP 172/68
--- NOTE | 2019-04-11 16:46 | NUR ---
ASSESSMENT CHARTED- MS. ORO RECIEVED RESPIRATORY TX THAT ALLOWED HER TO HAVE A PRODUCTIVE COUGH TO BREAK UP MUCUS. SHE WAS WHEEZY DURING LUNG AUSCULTATION. DR HOLCOMB WAS NOTIFIED. NO NEW ORDERS. IV FLUIDS REMAIN TO POC. PATIENT WENT TO SIT IN THE CHAIR TWO TIMES TODAY. PATIENT HAD ONE BM THAT WAS FORMED. PT USING COMMODE WITH ONE ASSIST. PT USING WALKER ASSISTIVE DEVICE. MULTIPLE DIAGNOSTIC STUDIES WERE COMPLETED TODAY. FALL PRECAUTIONS IN PLACE. PT WAS ALERT AND ORIENTED TO SITUATION. PATIENT REMAINED IN A JOVIAL, CALM, AND COOPERATIVE MOOD. MULTIPLE FAMILY MEMBERS VISITED THE PT TODAY.
--- NOTE | 2019-04-11 17:00 | 2DMMODE ---
[facility] [address] [place] [address] 2 D/M-MODE ECHOCARDIOGRAM Name: DONNACINDYESTEBAN [facility] Room #: 216-P ADM IN M.R.#: [id number] ������������� Admission: 04/10/19 ������������� Attend Phys: Titi Bobo, Discharge: ��� ������������� ��� Date of : 39 Date of Service: 04/11/19 1659 �� Report #: [id number] �������� ��������������������������������������������[id number] THIS REPORT FOR: //name// APPROVED REPORT Study performed: 04/11/2019 14:55:50 EXAM: Comprehensive 2D, Doppler, and color-flow Echocardiogram Patient Location: Bedside Room #: 216 Status: routine BSA: 2.24 HR: 73 bpm BP: 174/68 mmHg Rhythm: NSR Other Information Study Quality: Adequate Indications COPD CVA/TIA Diabetes Hypertension/HDD Echo Enhancing Agent Indication: Rule out Shunt Agent(s) / Amount(s) Used: Agitated Saline 7 cc 2D Dimensions RVDd: 42.02 mm IVSd: 9.92 (7-11mm) LVOT Diam: 19.50 (18-24mm) LVDd: 51.29 mm PWd: 9.63 (7-11mm) Ascending Ao: 29.47 (22-36mm) LVDs: 36.71 (25-40mm) Aortic Root: 31.54 mm IVC: 20.00 mm Volumes Left Atrial Volume (Systole) Single Plane 4CH: 64.91 mL Single Plane 2CH: 69.24 mL LA ESV Index: 32.00 mL/m2 Aortic Valve AoV Peak Uriah.: 1.60 m/s AO Peak Gr.: 10.24 mmHg LVOT Max P.95 mmHg [facility] [address] [place] [address] 2 D/M-MODE ECHOCARDIOGRAM Name: ESTEBAN ORO JACKIE Room #: 216-P [facility] IN [facility].#: [id number] ������������� Admission: 04/10/19 ������������� Attend Phys: Titi Bobo, Discharge: ��� ������������� ��� Date of : 39 Date of Service: 04/11/19 1659 �� Report #: [id number] �������� ��������������������������������������������[id number] LVOT Max V: 1.22 m/s MARI Vmax: 2.27 cm2 Mitral Valve E/A Ratio: 0.8 MV Decel. Time: 349.54 ms MV E Max Uriah.: 1.07 m/s MV A Uriah.: 1.35 m/s MV PHT: 101.37 ms IVRT: 147.64 ms Pulmonary Valve PV Peak Uriah.: 1.19 m/s PV Peak Gr.: 5.67 mmHg Pulmonary Vein P Vein S: 0.66 m/s P Vein A: 0.26 m/s P Vein D: 0.46 m/s P Vein A Dur.: 120.0 msec P Vein S/D Ratio: 1.43 Tricuspid Valve TR Peak Uriah.: 3.10 m/s TR Peak Gr.: 38.39 mmHg PA Pressure: 48.00 mmHg Left Ventricle The left ventricle is normal size. There is normal LV segmental wall motion. There is normal left ventricular wall thickness. The left ventricular systolic function is normal. The left ventricular ejection fraction is within the normal range. LVEF is 55-60%. Grade I - abnormal relaxation pattern. Right Ventricle The right ventricle is normal size. The right ventricular systolic function is normal. Atria The left atrium size is normal. Interatrial septum is intact without evidence of ASD or PFO. Right atrium is borderline dilated. Aortic Valve The aortic valve is normal in structure. No aortic regurgitation is present. There is no aortic valvular stenosis. Mitral Valve The mitral valve is normal in structure. Trace to mild mitral regurgitation. No evidence of mitral valve stenosis. [facility] [address] [place] [address] 2 D/M-MODE ECHOCARDIOGRAM Name: ESTEBAN ORO [facility] Room #: 216-P [facility] IN [facility]#: [id number] ������������� Admission: 04/10/19 ������������� Attend Phys: Titi Bobo, Discharge: ��� ������������� ��� Date of : 39 Date of Service: 04/11/19 1659 �� Report #: [id number] �������� ��������������������������������������������[id number] Tricuspid Valve The tricuspid valve is normal in structure. There is mild tricuspid regurgitation. Estimated PAP 48 mmHg. There is moderate pulmonary hypertension. Pulmonic Valve The pulmonary valve is normal in structure. Trace pulmonic regurgitation. Great Vessels The aortic root is normal in size. IVC is dilated and collapses >50% with inspiration. Pericardium There is no pericardial effusion. <Conclusion> The left ventricle is normal size. LVEF is 55-60%. Grade I - abnormal relaxation pattern. The right ventricle is normal size. The left atrium size is normal. Right atrium is borderline dilated. The aortic valve is normal in structure. The aortic valve is normal in structure. Trace to mild mitral regurgitation. There is mild tricuspid regurgitation. Estimated PAP 48 mmHg. There is moderate pulmonary hypertension. There is no pericardial effusion. ��������������������������������������������� <ELECTRONICALLY SIGNED> ���������������������������������������� By: Gerald Ponce MD, FACC ��������������������������������������������� 04/11/191658 58 58 Gerald Ponce MD, FACC /INF
[2019-04-11 17:49] VITALS: BP 124/48
--- NOTE | 2019-04-11 18:34 | NUR ---
PT REPORTED ABDOMINAL DISTENSION. DR. HOLCOMB WAS NOTIFIED. A KUB WAS ORDERED. WILL FOLLOW UP WITH RESULTS. DR. HOLCOMB WAS ALSO NOTIFIED OF POTENTIAL RHYTHM CHANGE. ORDER OBTAINED TO HAVE 12 LEAD EKG DONE IF NEEDED. WILL CONTINUE TO MONITOR.
[2019-04-11 20:19] VITALS: BP 182/81; BP 282/81
[2019-04-12 05:17] VITALS: BP 179/71
--- NOTE | 2019-04-12 06:44 | NUR ---
END OF SHIFT NOTE: RECEIVED REPORT AND ASSUMED PATIENT CARE AT 1900. PATIENT IS AAOX3 AND IS NOTED TO BE ON 3L NC. PATIENT DID NOT UTILIZE THE CPAP DUE TO IT BEING TOO SMALL. DAUGHTER IS SUPPOSED TO BRING HER MACHINE FROM HOME. PATIENT SHOWED SINUS RHYTHM, SINUS TWILA, AND ALSO A-FIB DURING THIS SHIFT. HOURLY ROUNDING COMPLETED AND PATIENT MONITORED CLOSELY.
[2019-04-12 08:44] VITALS: BP 169/89
[2019-04-12 08:49] LABS: INR 2.8; PROTIME 28.6 Seconds (9.3-11.4)
[2019-04-12 08:55] LABS: CHOLESTEROL 205 mg/dL (<200); HDL CHOLESTEROL 59 mg/dL (>40); LDL CHOLESTEROL 96 mg/dL (<100); TC:HDL 3.5 Ratio (Not establshd); TRIGLYCERIDE 250 mg/dL (<150); VLDL 50 mg/dL (<40)
--- NOTE | 2019-04-12 09:30 | NUR ---
Pt assessed for BMI > 40 risk screening. BMI=40.7 kg/m2 (class 3 - high risk). Admitted w/ AMS, pneumonia, UTI, sepsis per H&P. Hx: DM (on insulin), CAD, HTN, CABG x5, IA, DVT, PE. Currently on a regular diet, but recommend adding diabetic and heart healthy restrictions d/t PMH. BGs elevated, 175-323 mg/dl x 24 hrs. On Humalog SSI, 20 units Lantus BID; also note prednisone. Denies any wt changes. Knows she should lower dessert intake. RD recommended starting w/ 5-10% wt loss to lower BMI and improve BG control. Education given on wt loss tips/lower carb intake. Reports past DM education. Low nutrition risk.
--- NOTE | 2019-04-12 15:49 | NUR ---
INITIAL ASSESSMENT: Pt evaluated for d/c planning needs. Reviewed chart and spoke with nurse and pt. Pt is alert and oriented. Pt and daughter Sherry live together in house. Pt is independent with ADL's. Pt has walker, cane, bedside commode, nebulizer and oxygen at home. Pt has had VNA in the past. Pt plans on returning home on d/c from hospital. Will remain available to assist as needed.
[2019-04-12 16:28] VITALS: BP 149/68
--- NOTE | 2019-04-12 18:27 | NUR ---
PT ALERT AND ORIENTED X4. DENIES SOA. VSS. REPORTS PAIN 7/10 TO BACK. REPORTS PAIN MANAGEMENT IS ADEQUATE. PT UP TO CHAIR FOR MEALS WITH MOD ASSIST X1, GAITBELT AND WALKER. TOLERATING MOBILIZATION. LYMPHEDEMA WRAPS PLACED PER ORDER. FAMILY AT BEDSIDE FOR SHORT PERIOD THIS SHIFT. PT AND FAMILY DENY QUESTIONS OR CONCERS REGARDING POC. PT CONTINUES TO REPORT ABD DISCOMFORT. NO BM BUT PT PASSING FLATUS. CV CONSULTED REGARDING CARDIAC RHYTHM CHANGE. INR REASSESED PER CV. NO OTHER ORDERS. PT LEFT EYE OPENING BACK UP. NO DISTRESS NOTED THIS SHIFT.
[2019-04-12 20:45] VITALS: BP 162/65
[2019-04-13] VITALS (8 sets, daily range): BP systolic 105–187; BP diastolic 55–85
[2019-04-13 05:14] LABS: INR 2.7; PROTIME 28.3 Seconds (9.3-11.4)
--- NOTE | 2019-04-13 11:40 | NUR ---
FAXED REFERRAL TO A HH PT HAS HAD SERVICE WITH THEM IN THE PAST SPOKE WITH [facility] IN INTAKE AND THEY CAN ACCEPT PT AT DC BUT WILL DO BEDSIDE VISIT PRIOR TO DC. DCP TO FAX DC ORDERS/SUMMARY AND [facility] WILL NOTIFY PT TIME OF VISITS.
--- NOTE | 2019-04-13 13:50 | NUR ---
Pt has been up in bedside chair since start of the shift. Pt anxious to go home. Discharge orders were received and discharge instructions reviewed with patient and pt's daughter. Pt brought her own portable oxygen tank for the trip home. Assisted to car with voulunteer and community relations officer, Leatha. Pt up to commode to void prior to discharge and was SOA with the activity. OT was here to adjust support stockings for lymphedema this morning. See discharge instructions.
--- NOTE | 2019-04-13 14:39 | NUR ---
patient dc home with HH from [facility]. She completed new AD placed on chart naming hermanr Imani as DPOA. Imani aware, placed new AD on chart. Copies given to patient no further needs
== END 2019-04-13 13:49 | disposition home health service (06) | DRG 871 ==
LOC: ER 10:50 → EROBS 13:22 → 2N 13:22
PROVIDERS: Nurse Practitioner Adult Health; Nurse Practitioner Family; Psychiatry & Neurology Neurology; ADMIT Family Medicine
DX: A41.9 Sepsis, unspecified organism (principal); J18.9 Pneumonia, unspecified organism; J96.20 Acute and chronic respiratory failure, unspecified whether with hypoxia or hypercapnia; N39.0 Urinary tract infection, site not specified; I50.32 Chronic diastolic (congestive) heart failure; N17.9 Acute kidney failure, unspecified; G93.40 Encephalopathy, unspecified; I25.10 Atherosclerotic heart disease of native coronary artery without angina pectoris; E78.00 Pure hypercholesterolemia, unspecified; N20.0 Calculus of kidney; M19.90 Unspecified osteoarthritis, unspecified site; K21.9 Gastro-esophageal reflux disease without esophagitis; M54.9 Dorsalgia, unspecified; Z96.652 Presence of left artificial knee joint; I65.29 Occlusion and stenosis of unspecified carotid artery; D32.1 Benign neoplasm of spinal meninges; E11.51 Type 2 diabetes mellitus with diabetic peripheral angiopathy without gangrene; I48.0 Paroxysmal atrial fibrillation; G89.29 Other chronic pain; I11.0 Hypertensive heart disease with heart failure; E78.5 Hyperlipidemia, unspecified; B96.89 Other specified bacterial agents as the cause of diseases classified elsewhere; Z98.42 Cataract extraction status, left eye; Z98.41 Cataract extraction status, right eye; Z90.710 Acquired absence of both cervix and uterus; I25.2 Old myocardial infarction; Z95.1 Presence of aortocoronary bypass graft; Z90.49 Acquired absence of other specified parts of digestive tract; Z86.718 Personal history of other venous thrombosis and embolism; Z86.711 Personal history of pulmonary embolism; Z95.5 Presence of coronary angioplasty implant and graft; Z79.4 Long term (current) use of insulin; Z88.6 Allergy status to analgesic agent; Z88.8 Allergy status to other drugs, medicaments and biological substances; Z87.891 Personal history of nicotine dependence; Z82.49 Family history of ischemic heart disease and other diseases of the circulatory system; Z83.3 Family history of diabetes mellitus; Z79.899 Other long term (current) drug therapy
CPT/HCPCS: 10081

== ENCOUNTER → 2019-05-13 | Outpatient (CLI) | payer OTHER ==
[~2019-05-13] VITALS: Ht 162.6 cm; Wt 111.6 kg
--- NOTE | ~2019-05-13 | HPC ---
[facility] [place] [address] [place] [address] PAIN MANAGEMENT CONSULTATION Name: DENZEL OROAREAmerica MEJIA Room #: REG LAWRENCE Jacob#: [id number] Admission: 05/13/19 Attend Phys: Jennifer Longoria MD Discharge: Date of : 39 Report #: [id number] THIS REPORT FOR: //name// CC: Jennifer Bobo DATE OF SERVICE: 05/13/2019 CHIEF COMPLAINT: Here for an epidural injection. HISTORY: The patient is an 84-year-old female who has been followed in the pain clinic. She has chronic back pain. Epidural steroid injections have been beneficial in the past. She has returned today and has stopped taking her Coumadin. Her INR is less than 1.5. She would like to proceed with an epidural steroid injection given that she has had improvement in the past. Continues to use oxygen. She has significant COPD. Continues to have pain in the L5-S1 dermatomal distribution involving primarily her right leg. Left leg is involved as well. ALLERGIES: ADHESIVE TAPE, MORPHINE, CODEINE, DOXYCYCLINE, CITALOPRAM, AND TIZANIDINE. CURRENT MEDICATIONS: Amlodipine 10 mg, Cymbalta 60 mg b.i.d., Lipitor 40 mg at bedtime, vitamin D, Singulair 10 mg at bedtime, insulin, Levemir, oxycodone 7.5 mg t.i.d., methadone 10 mg b.i.d., Tegretol 200 mg b.i.d., baclofen 10 mg 1-2 tablets at bedtime, Belsomra 20 mg at bedtime, Trelegy inhaler, Lutein, prednisone 40 mg, Aricept 10 mg b.i.d., Bystolic 10 mg daily, Demadex 20 mg, Ventolin inhaler, albuterol inhaler, vitamin B12, Protonix, Coumadin 8 mg daily, MiraLax daily, and Cozaar. PAIN CLINIC ASSESSMENT/PQRS: 1. The patient has some arthritic changes in her hip as well as in her feet and hands. She is not being treated by a pulmonary physician. 2. Height 5 feet 4 inches, weight 246 pounds, BMI is 42.2. 3. Vital Signs: Blood pressure 150/77, pulse is 80, respiratory rate 18, and room air saturation is 100. 4. Pain intensity 5/10. 5. Fall risk. The patient has not fallen and travels quite a bit in a wheelchair. 6. Blood thinner. The patient is on Coumadin. She has stopped taking this medication. 7. History of hypertension. 8. Opioids greater than 6 weeks. The patient receives medications from one source the pain clinic. 9. Risk assessment tool, low. 10. Functional assessment tool 49/70. [facility] [address] [place] [address] PAIN MANAGEMENT CONSULTATION Name: FELICITAESTEBAN FRANCOIS JACKIE Room #: REG Leisa Jacob#: [id number] Admission: 05/13/19 Attend Phys: Jennifer Longoria MD Discharge: Date of : 39 Report #: [id number] 11. Recreational drug use. The patient denies. 12. Tobacco: The patient has never smoked. 13. Alcohol: The patient denies use of alcoholic beverages. PHYSICAL EXAMINATION: GENERAL: The patient is a well-developed, well-nourished, obese white female. She appears her stated age. She is alert and oriented x 3. Her affect is appropriate. Speech is fluent. HEENT: Normocephalic, atraumatic. Extraocular eye muscles intact. Sclerae nonicteric. Mucous membranes are moist. Right eye is slightly larger in appearance in the left. The patient is on oxygen via nasal cannula. NECK: Without adenopathy or JVD. EXTREMITIES: Upper extremity muscle strength is judged to be 4+/5 for the upper extremity. The patient has pain in her left hip that radiates down into her left leg. Pain involves the L5-S1 dermatomal distribution. Has some generalized muscle soreness and trigger points in her low back area. IMPRESSION: 1. Lumbar radiculopathy with spinal stenosis and axial back pain radiating down in the L5-S1 dermatomal distribution on the right side. 2. Peripheral neuropathy. 3. Osteoarthritis. 4. Management of pain with high risk medications. 5. Depression. 6. Chronic back pain. 7. Degenerative joint disease. RECOMMENDATIONS: We discussed treatment options with the patient. Risks and benefits of an epidural steroid injection were discussed. They include but are not limited to infection, worsening of pain, no improvement in pain, increased muscle soreness. The patient was taken to the procedure area. She was then reassess. States that her pain at this juncture is primarily in the L4-L5 dermatomal distribution. We will proceed with an L4-L5 dermatomal distribution injection. Risks and benefits of the procedure were again reviewed. The patient elects to proceed. PROCEDURE NOTE: The patient was placed in the prone position. Her back was sterilely prepped with a Betadine solution. A 0.25% bupivacaine was infiltrated. A 17-gauge Tuohy with loss of resistance technique was used to gain access to the epidural space. There was no CSF, heme or paresthesia. Total of 80 mg Depo-Medrol, 40 mg triamcinolone and 2 mL of 0.25% bupivacaine was injected. The patient's pain decreased to 0 at the time of discharge. She will follow up in the future as needed. She will monitor her blood sugars. [facility] [address] [place] [address] PAIN MANAGEMENT CONSULTATION Name: ESTEBAN ORO JACKIE [id number] Admission: 05/13/19 Attend Phys: Jennifer Longoria MD Discharge: Date of : 39 Report #: [id number] We would like to thank you for letting us participate in her care. We hope she continues to improve. By: [id number] Jennifer Longoria MD /nt
[2019-05-13 12:31] VITALS: BP 150/77
--- NOTE | 2019-05-13 12:40 | NUR ---
Pain Clinic Assessment: 1. History of Osteoarthritis: BACK History of Rheumatoid Arthritis: 2. Height: 5 ft. 4 in. 162.6 cm. Weight: 246.0 lb. oz. 111.585 kg. Patient's BMI: 42.2 3. Vital Signs: BP: 150/77 Pulse: 80 Resp: 18 Temp: 02 Sat: 100 ECG Mon: 4. Pain Intensity: 5 5. Fall Risk: Dizziness: N Needs help standing or walking: Y Fallen in the last 3 months: N Fall risk comments: 6. Patient on Blood Thinner: Warfarin (Coumadin) 7. History of Hypertension: Y 8. Opioid Therapy greater than 6 weeks: Y Opiate Contract Signed: 9. Risk Assessment Tool Provided: LOW RISK 09/23 10. Functional Assessment Tool: 11. Recreational Drug Use: Never Drug Type: Tobacco Use: Never Smoker Tobacco Type: Amount or Packs/day: How Many Years: Alcohol Use: No Frequency: Quant:
== END | disposition home or self-care (01) ==
LOC: PAIN 06:52
DX: M48.061 Spinal stenosis, lumbar region without neurogenic claudication (principal); M54.16 Radiculopathy, lumbar region; G89.29 Other chronic pain; G62.9 Polyneuropathy, unspecified; M19.90 Unspecified osteoarthritis, unspecified site; F32.9 Major depressive disorder, single episode, unspecified; I11.0 Hypertensive heart disease with heart failure; J44.9 Chronic obstructive pulmonary disease, unspecified; I50.9 Heart failure, unspecified; Z88.8 Allergy status to other drugs, medicaments and biological substances; Z79.891 Long term (current) use of opiate analgesic; Z79.899 Other long term (current) drug therapy; Z79.01 Long term (current) use of anticoagulants; Z98.890 Other specified postprocedural states

== ENCOUNTER → 2019-07-29 | Outpatient (CLI) | payer OTHER ==
[~2019-07-29] VITALS: Ht 162.6 cm; Wt 112.0 kg
[~2019-07-29] MED LIST changes: +HUMALOG KW100 UNIT/1 SUBQ; +HUMALOG100 UNIT/1 SUBQ; +OXYCODONE-APAP1 TAB PO; +PERFOROMIS20 MCG/2 M; +PULMICORT0.25 MG/2; +TORSEMIDE20 MG PO; +VITAMIN B12 PO; +WARFARIN SODIUM1 MG PO; +YUPELRI175 MCG/3
[2019-07-29 10:18] VITALS: BP 145/73
--- NOTE | 2019-07-29 10:25 | NUR ---
Pain Clinic Assessment: 1. History of Osteoarthritis: BACK History of Rheumatoid Arthritis: Not Applicable 2. Height: 5 ft. 4 in. 162.6 cm. Weight: 247.0 lb. oz. 112.039 kg. Patient's BMI: 42.4 3. Vital Signs: BP: 145/73 Pulse: 75 Resp: 20 Temp: 02 Sat: 97 ECG Mon: 4. Pain Intensity: 7 5. Fall Risk: Dizziness: N Needs help standing or walking: Y Fallen in the last 3 months: N Fall risk comments: 6. Patient on Blood Thinner: Warfarin (Coumadin) 7. History of Hypertension: Y 8. Opioid Therapy greater than 6 weeks: Y Opiate Contract Signed: 9. Risk Assessment Tool Provided: LOW RISK 09/23 10. Functional Assessment Tool: 11. Recreational Drug Use: Never Drug Type: Tobacco Use: Never Smoker Tobacco Type: Amount or Packs/day: How Many Years: Alcohol Use: No Frequency: Quant:
--- NOTE | 2019-09-20 14:24 | HPC ---
[facility] [address] [place] [address] PAIN MANAGEMENT CONSULTATION Name: FELICITAAYDINCINDYESTEBAN ANN Room #: REG LAWRENCE Jacob#: [id number] Admission: 07/29/19 Attend Phys: Jennifer Longoria MD Discharge: Date of : 39 Report #: [id number] THIS REPORT FOR: //name// CC: Jennifer Bobo DATE OF SERVICE: 07/29/2019 CHIEF COMPLAINT: Back pain, which still is bad in the morning. HISTORY: The patient is an 84-year-old female who has been followed in the pain clinic because of chronic pain in her back. She has undergone epidural steroid injections in the past. They have been beneficial. She finds that her medications continue to be helpful. She has returned today indicating that her pain continues to be problematic. She rates her pain as a 6/10 today. She has noted increased pain on the left side and particularly in the back area. It is radiating down in her leg on the left side to the level of the knee. Describes it as sharp, aching. The patient's pain is worse when she is standing, walking and with activities. Does travel in a wheelchair. Notes that her pain improves somewhat when she takes her medications. Cold packs to the back has been helpful. Lying down, can improve her pain as well. She has returned today for renewal of her medications. ALLERGIES: ADHESIVE TAPE, MORPHINE, CODEINE, DOXYCYCLINE, CITALOPRAM, TIZANIDINE CURRENT MEDICATIONS: Amlodipine 10 mg, Cymbalta 60 mg b.i.d., Lipitor 40 mg at bedtime, vitamin D, Singulair 10 mg at bedtime, insulin Levemir, oxycodone 7.5 mg t.i.d., methadone 10 mg b.i.d., Tegretol 200 mg b.i.d., baclofen 10 mg 1-2 tablets at bedtime, Belsomra 20 mg at bedtime, Trelegy inhaler, Lutein, prednisone 40 mg, Aricept 10 mg b.i.d., Bystolic 10 mg daily, Demadex 20 mg, Ventolin inhaler, albuterol inhaler, vitamin B12, Protonix, Coumadin 8 mg daily, MiraLax daily, Cozaar. PAIN CLINIC ASSESSMENT AND PQRS: 1. The patient has some arthritic changes in her hip as well as down in her feet. Has some pain and discomfort in her low back area. She is not being treated for rheumatoid arthritis. 2. Height 5 feet 4 inches, weight 247 pounds. 3. Vital signs: Blood pressure 145/73, pulse 75, respiratory rate 20, room air saturation 97%. 4. Pain intensity 6-7/10. 5. Fall history: The patient has not fallen since we saw her last. 6. Blood thinner. The patient is on a blood thinning medication, Coumadin. 7. Hypertension. The patient is being treated for hypertension. 8. Opioids greater than 6 weeks. The patient receives medication from one [address] [address] PAIN MANAGEMENT CONSULTATION Name: DONNACINDYESTEBAN ANN Room #: REG CLLeisa Jacob#: [id number] Admission: 07/29/19 Attend Phys: Jennifer Longoria MD Discharge: Date of : 39 Report #: [id number] source the pain clinic. 9. Risk assessment tool, low for opioid use. 10. Functional assessment tool, 49/70. 11. Recreational drug use: The patient denies. 12. Tobacco: The patient has never smoked. 13. Alcohol: The patient rarely drinks alcoholic beverages. PHYSICAL EXAMINATION: GENERAL: The patient is a well-developed, well-nourished white female. Somewhat obese. She is accompanied by her family member. She is alert and oriented x 3. HEENT: Normocephalic, atraumatic. Extraocular eye muscles intact. Sclerae nonicteric, right eye is opened larger than the left. The patient is receiving oxygen via nasal cannula. NECK: Without adenopathy or JVD. EXTREMITIES: Upper extremity muscle strength judged to be 4/5 for the muscle strength. The patient has pain and discomfort in her left hip with pain that is radiating down into her left leg. Also, has had pain in the L5-S1 dermatomal distribution. The patient has some generalized muscle soreness with trigger points in numerous areas in the low back area. IMPRESSION: 1. Lumbar radiculopathy, history of spinal stenosis with axial back pain radiating down into the L5-S1 area as well as the L4-L5 area. 2. Peripheral neuropathy. 3. Osteoarthritis. 4. Management of pain with use of high risk medications and opioids. 5. Depression. 6. Chronic back pain. 7. Degenerative joint disease. 8. COPD with nasal cannula using 2 liters of oxygen. RECOMMENDATIONS: We discussed treatment options with the patient. At this juncture, we will continue with her medications. The possible complications include development of dependence. The patient is not showing signs of addiction. She has taken the medication as prescribed. We explained to her that there is a limited amount of benefit that can be gleaned with increasing her medications above, which she is on at this juncture. So, we will continue with her medications. A script for her medications of Percocet 7.5 mg one p.o. 4-6 hours, a total of 120 tablets have been written. The patient will also continue with methadone 10 mg 1 p.o. b.i.d. The patient will call for baclofen and Tegretol when she needs them. [facility] [address] [place] [address] PAIN MANAGEMENT CONSULTATION Name: FELICITAAYDINCINDYESTEBAN ANN Room #: REG [facility] Nidia#: [id number] Admission: 07/29/19 Attend Phys: Jennifer Longoria MD Discharge: Date of : 39 Report #: [id number] We would like to thank you for letting us participate in her care. We hope she continues to improve. <ELECTRONICALLY SIGNED> By: Jennifer Longoria MD 09/20/19 1424 [id number] Jennifer Longoria MD /GUY
== END ==
LOC: PAIN 06:52
DX: M54.16 Radiculopathy, lumbar region (principal); M48.061 Spinal stenosis, lumbar region without neurogenic claudication; G62.9 Polyneuropathy, unspecified; F32.9 Major depressive disorder, single episode, unspecified; M19.90 Unspecified osteoarthritis, unspecified site; J44.9 Chronic obstructive pulmonary disease, unspecified; Z79.891 Long term (current) use of opiate analgesic

== ENCOUNTER → 2019-09-02 | Outpatient (CLI) | payer OTHER ==
[~2019-09-02] VITALS: Ht 162.6 cm; Wt 112.8 kg
[2019-09-02 11:06] VITALS: BP 112/54
--- NOTE | 2019-09-02 11:34 | NUR ---
Pain Clinic Assessment: 1. History of Osteoarthritis: BACK History of Rheumatoid Arthritis: Not Applicable 2. Height: 5 ft. 4 in. 162.6 cm. Weight: 248.6 lb. oz. 112.764 kg. Patient's BMI: 42.7 3. Vital Signs: BP: 112/54 Pulse: 73 Resp: 16 Temp: 02 Sat: 100 ECG Mon: 4. Pain Intensity: 7 5. Fall Risk: Dizziness: N Needs help standing or walking: Y Fallen in the last 3 months: N Fall risk comments: 6. Patient on Blood Thinner: Warfarin (Coumadin) 7. History of Hypertension: Y 8. Opioid Therapy greater than 6 weeks: Y Opiate Contract Signed: 9. Risk Assessment Tool Provided: LOW RISK 09/23 10. Functional Assessment Tool: 11. Recreational Drug Use: Never Drug Type: Tobacco Use: Never Smoker Tobacco Type: Amount or Packs/day: How Many Years: Alcohol Use: No Frequency: Quant:
== END | disposition home or self-care (01) ==
LOC: PAIN 07:33
DX: M54.16 Radiculopathy, lumbar region (principal); Z79.01 Long term (current) use of anticoagulants; Z88.8 Allergy status to other drugs, medicaments and biological substances; Z79.899 Other long term (current) drug therapy

== ENCOUNTER 2019-09-12 04:19 | Emergency (ER) | payer OTHER ==
[~2019-09-12] VITALS: Ht 165.1 cm; Wt 110.7 kg
[~2019-09-12 04:19] MED LIST changes: -HUMALOG100 UNIT/1 SUBQ; -PERFOROMIS20 MCG/2 M; -PULMICORT0.25 MG/2; -TORSEMIDE20 MG PO; -VITAMIN B12 PO; -WARFARIN SODIUM1 MG PO; -YUPELRI175 MCG/3
[2019-09-12] MEDS ORDERED: BELSOMRA20 MG PO (04:34)
[2019-09-12] MEDS ORDERED: ARICEPT10 M1 PO (04:36)
[2019-09-12] MEDS ORDERED: TORSEMIDE20 MG PO (04:39)
[2019-09-12] MEDS ORDERED: VITAMIN B12 PO (04:40)
[2019-09-12] MEDS ORDERED: COUMADIN 3 MG TA3 MG PO (04:43)
[2019-09-12] MEDS ORDERED: HUMALOG100 UNIT/1 SUBQ (04:45)
[2019-09-12] MEDS ORDERED: WARFARIN SODIUM1 MG PO (04:51)
[2019-09-12] MEDS ORDERED: YUPELRI175 MCG/3 (04:53)
[2019-09-12] MEDS ORDERED: PERFOROMIS20 MCG/2 M (04:53)
[2019-09-12] MEDS ORDERED: PULMICORT0.25 MG/2 (04:53)
[2019-09-12 05:27] LABS: INR 1.9; PROTIME 19.6 Seconds (9.3-11.4)
[2019-09-12 06:44] VITALS: BP 174/76
== END 2019-09-12 06:40 | disposition home or self-care (01) ==
LOC: ER 04:19
PROVIDERS: Emergency Medicine
DX: S81.811A Laceration without foreign body, right lower leg, initial encounter (principal); S01.01XA Laceration without foreign body of scalp, initial encounter; I25.10 Atherosclerotic heart disease of native coronary artery without angina pectoris; E78.00 Pure hypercholesterolemia, unspecified; E11.43 Type 2 diabetes mellitus with diabetic autonomic (poly)neuropathy; K31.84 Gastroparesis; I11.0 Hypertensive heart disease with heart failure; I50.9 Heart failure, unspecified; Z95.5 Presence of coronary angioplasty implant and graft; Z95.1 Presence of aortocoronary bypass graft; Z90.49 Acquired absence of other specified parts of digestive tract; Z90.710 Acquired absence of both cervix and uterus; Z86.711 Personal history of pulmonary embolism; Z86.718 Personal history of other venous thrombosis and embolism; Z79.4 Long term (current) use of insulin; Z88.5 Allergy status to narcotic agent; Z88.1 Allergy status to other antibiotic agents; Z88.8 Allergy status to other drugs, medicaments and biological substances; Z87.891 Personal history of nicotine dependence; W01.0XXA Fall on same level from slipping, tripping and stumbling without subsequent striking against object, initial encounter; Y93.89 Activity, other specified; Y92.89 Other specified places as the place of occurrence of the external cause; Y99.8 Other external cause status

== ENCOUNTER 2019-10-19 09:01 | Emergency (ER) | payer OTHER ==
[~2019-10-19] VITALS: Ht 175.3 cm; Wt 102.1 kg
[~2019-10-19 09:01] MED LIST changes: +HUMALOG100 UNIT/1 SUBQ; +PERFOROMIS20 MCG/2 M; +PULMICORT0.25 MG/2; +TORSEMIDE20 MG PO; +VITAMIN B12 PO; +WARFARIN SODIUM1 MG PO; +YUPELRI175 MCG/3
[2019-10-19 09:47] LABS: ABSOLUTE NEUTROPHILS 6.6 thou/uL (1.4-8.2); BASOPHILS 0.6 % (0.0-2.0); EOSINOPHILS 1.8 % (0.0-3.0); HEMATOCRIT 29.9 % (37.0-47.0); HEMOGLOBIN 9.5 gm/dL (12.0-15.0); LYMPHOCYTES 19.1 % (24.0-44.0); MCH 30.3 pg (26.0-34.0); MCHC 31.8 g/dL (28.0-37.0); MCV 95.1 fL (80.0-100.0); MONOCYTES 9.1 % (1.0-8.0); PLATELET COUNT 212 thou/uL (150-400); POLYS 69.4 % (36.0-66.0); RBC 3.15 mil/uL (4.20-5.00); RDW 16.1 % (10.5-14.5); WBC 9.5 thou/uL (4.0-11.0)
[2019-10-19 09:56] LABS: ANION GAP 3 mmol/L (7-16); BUN 52 mg/dL (7-18); CALCIUM 8.7 mg/dL (8.5-10.1); CHLORIDE 106 mmol/L (98-107); CO2 39 mmol/L (21-32); CREATININE 1.9 mg/dL (0.6-1.0); GLUCOSE 103 mg/dL (74-106); POTASSIUM 4.5 mmol/L (3.5-5.1); SODIUM 148 mmol/L (136-145)
[2019-10-19 09:58] LABS: INR 2.4; PROTIME 24.8 Seconds (9.3-11.4)
[2019-10-19 10:05] LABS: MAGNESIUM 2.2 mg/dL (1.8-2.4); TROPONIN-I <0.06 ng/mL (<0.06)
[2019-10-19 13:43] VITALS: BP 118/62
--- NOTE | 2019-10-21 11:11 | HC ---
[facility] [place] [address] CONSULTATION Name: ESTEBAN ORO Room #: DEP Nidia#: [id number] Admission: 10/19/19 Attend Phys: Discharge: 10/19/19 Date of : 39 Report #: [id number] THIS REPORT FOR: //name// CC: Travis Bobo DATE OF SERVICE: 10/19/2019 ER CONSULTATON FOR WOUND CARE CONSULTATION PERSONAL PHYSICIAN: Titi Bobo MD. CHIEF COMPLAINT: Traumatic wound, right lower extremity. HISTORY OF PRESENT ILLNESS: This is an 84-year-old white female who is actually scheduled to see me in the Wound Clinic today for a chronic wound on her right pretibial area caused by a fall several weeks ago. The patient unfortunately, she was getting ready to come to my office this morning, fell in the bathroom and suffered a laceration on her pretibial region, proximal to the chronic traumatic wound. I was called by Dr. Bobo to see the patient in the Emergency Department for evaluation of the chronic wound and to set up followup for the patient in my clinic. The patient states she is on Coumadin. The patient wears 3 liters of oxygen, constantly at home. The patient denies chest pain or shortness of breath. The patient states she had no head injury or loss of consciousness with the fall. The patient only complains of mild pain in the pretibial region. The patient suffered no other injuries with the fall this morning. PAST MEDICAL HISTORY: Significant for coronary artery disease with an EF of approximately 60%, previous coronary artery bypass grafting in 2012, hypertension, insulin-dependent diabetes, hypercholesterolemia, previous cholecystectomy, chronic osteoarthritis, previous hysterectomy, history of DVT with PE, gastroesophageal reflux disease, chronic lower extremity edema, peripheral arterial disease, chronic back pain, on methadone. CURRENT MEDICATIONS: Include baclofen, Tegretol, Percocet, methadone, albuterol inhaler, insulin, Aricept, torsemide, Coumadin, vitamin D, Lipitor, Cymbalta, Norvasc, Cozaar, MiraLax, Protonix, Bystolic, prednisone, and zinc. DRUG ALLERGIES: ADHESIVE TAPE, DOXYCYCLINE, MORPHINE, TIZANIDINE, CITALOPRAM, AND CODEINE. SOCIAL HISTORY: The patient has a remote history of smoking, quit several years ago, denies drug use or alcohol use. The patient resides at home independently. [address] [address] CONSULTATION Name: ESTEBAN ORO Room #: DEP DIANA Jacob#: [id number] Admission: 10/19/19 Attend Phys: Discharge: 10/19/19 Date of : 37 Report #: [id number] FAMILY HISTORY: Not pertinent to current medical condition. REVIEW OF SYSTEMS: CONSTITUTIONAL: The patient denies fevers or chills. NEUROLOGIC: The patient denies numbness, tingling or weakness in arms or legs. EYES: No complaints. ENT: No complaints. CARDIAC: The patient denies chest pain, palpitations, has chronic lower extremity edema. RESPIRATORY: The patient denies shortness of breath, cough, but does have chronic wheezes and wears oxygen chronic 3 liters by nasal cannula. GASTROINTESTINAL: The patient denies nausea, vomiting, or abdominal pain. GENITOURINARY: The patient denies urgency or frequency. MUSCULOSKELETAL: The patient complains of chronic back pain as well as pain around her knee from the fall today. SKIN: The patient has an acute traumatic wound to the right pretibial area with josef in place. PHYSICAL EXAMINATION: VITAL SIGNS: Temperature 36.7, pulse 79, respirations 14, BP 181/80. GENERAL: This is an alert and oriented x 3, pleasant white female who is in mild distress secondary to symptoms. HEENT: Normocephalic, atraumatic. Mucous membranes are dry. Pupils are round. Sclerae white. NECK: Supple, nontender. LUNGS: Diminished breath sounds heard throughout with scattered wheezes. HEART: Regular, without murmur. ABDOMEN: Soft, nontender, obese. EXTREMITIES: The patient moves all extremities without difficulty. Bilateral heels are intact. Evaluation of right lower extremity reveals an 11 cm laceration that runs horizontally over the pretibial region approximately with josef in place and well approximated. Evaluation of distal to this chronic wound, which is a mixture of slough and granulation tissue as well as necrotic fat. The measurements are 6 x 3.5 x 1 cm depth. There is exposed muscle belly in the base of the wound; however, no evidence of any exposed tendons, ligaments or deeper structures. Periwound is intact without erythema. Large amount of serous fluid was noted with the drainage without odor. There is a tunnel from 1 o'clock to 4 o'clock which measures 3 cm. There are no signs of overt infection. Distal pulses are 1+, edema on the right lower extremity is 2+. NEUROLOGIC: Cranial nerves 2-12 are grossly intact. Motor and sensory grossly intact. LABORATORY VALUES: White count 9.5, hemoglobin 9.5, BUN 52, creatinine 1.9. INR is 2.4. X-ray of the right knee shows no acute fracture or dislocations. WOUND CARE PROCEDURE. [address] [address] CONSULTATION Name: ESTEBAN ORO Room #: DEP DIANA ArmstrongAurea#: [id number] Admission: 10/19/19 Attend Phys: Discharge: 10/19/19 Date of : 37 Report #: [id number] PREPROCEDURE DIAGNOSES: 1. Chronic wound, right lower extremity. 2. Chronic lower extremity edema. 3. Diabetes mellitus. POSTPROCEDURE DIAGNOSES: 1. Chronic wound, right lower extremity. 2. Chronic lower extremity edema. 3. Diabetes mellitus. DESCRIPTION OF PROCEDURE: After timeout was taken, verbal consent was obtained. The patient had excisional debridement down to and including subcutaneous tissue with removal of viable and nonviable tissue. Curette, forceps and scissors were used for the debridement. Pre-debridement measurements are as above. Post-debridement measurements are 6 x 4 x 3 cm. Bleeding was minimal, easily controlled with pressure. Post-debridement, the patient had the wound dressed with Aquacel Ag packing. The patient tolerated the procedure well. Total amount of excisional debridement performed was 24 square cm of subcutaneous excisional debridement. IMPRESSION: 1. Chronic wounds, right lower pretibial region, limited to involvement of the subcutaneous tissue. 2. Acute traumatic wound to the right proximal pretibial region, status post fall. 3. Diabetes mellitus. 4. Chronic lower extremity edema. 5. History of peripheral arterial disease. 6. Chronic obstructive pulmonary disease with 3 liters of oxygen at all times. 7. Coronary artery disease. 8. Status post coronary artery bypass graft. 9. History of deep venous thrombosis, on blood thinners. PLAN: At this time, bedside excisional debridement was performed as above. The patient had Aquacel Ag packed within the wound, covered this with Xtrasorb. The patient then will be placed in a 2-layer compression wrap for control of edema as well as to continue with compression of the wound. I have talked to [facility] and we will put an order in for them to start caring for this patient 3 times weekly to do the dressing changes as above as well as the associated compression wraps. I will follow the patient back up in my office in [address] Bobo's has been notified of the patient's care as well. We will continue all other current medications at this time. There is an appropriate timeframe within the next 10-14 days. We will remove the patient's josef as well. The patient will also be placed in a knee immobilizer for [address] [address] CONSULTATION Name: ESTEBAN ORO Room #: DEP Nidia#: [id number] Admission: 10/19/19 Attend Phys: Discharge: 10/19/19 Date of : 37 Report #: [id number] immobilization and control of the new acute traumatic wound. I appreciate the ability to consult. <ELECTRONICALLY SIGNED> By: Jonatan Snyder MD 10/21/19 1111 1251 0046 Jonatan Snyder MD /nt
== END 2019-10-19 13:55 | disposition home or self-care (01) ==
LOC: ER 09:01
PROVIDERS: Emergency Medicine
DX: S81.011A Laceration without foreign body, right knee, initial encounter (principal); I12.9 Hypertensive chronic kidney disease with stage 1 through stage 4 chronic kidney disease, or unspecified chronic kidney disease; I50.9 Heart failure, unspecified; E11.9 Type 2 diabetes mellitus without complications; E78.00 Pure hypercholesterolemia, unspecified; K21.9 Gastro-esophageal reflux disease without esophagitis; I25.2 Old myocardial infarction; Z90.49 Acquired absence of other specified parts of digestive tract; F32.9 Major depressive disorder, single episode, unspecified; Z96.652 Presence of left artificial knee joint; G47.30 Sleep apnea, unspecified; Z98.890 Other specified postprocedural states; Z79.4 Long term (current) use of insulin; Z88.6 Allergy status to analgesic agent; Z88.5 Allergy status to narcotic agent; Z87.891 Personal history of nicotine dependence; W18.39XA Other fall on same level, initial encounter; Y93.01 Activity, walking, marching and hiking; Y92.002 Bathroom of unspecified non-institutional (private) residence as the place of occurrence of the external cause; Y99.8 Other external cause status

== ENCOUNTER → 2019-10-27 | Outpatient (CLI) | payer OTHER | LOC: HYPER 12:25 | DX: E11.622 Type 2 diabetes mellitus with other skin ulcer (principal); L97.812 Non-pressure chronic ulcer of other part of right lower leg with fat layer exposed; S81.811A Laceration without foreign body, right lower leg, initial encounter; S90.414A Abrasion, right lesser toe(s), initial encounter; S90.415A Abrasion, left lesser toe(s), initial encounter; S81.011A Laceration without foreign body, right knee, initial encounter; L03.115 Cellulitis of right lower limb; E11.51 Type 2 diabetes mellitus with diabetic peripheral angiopathy without gangrene; E66.01 Morbid (severe) obesity due to excess calories; E78.00 Pure hypercholesterolemia, unspecified; G47.33 Obstructive sleep apnea (adult) (pediatric); I10 Essential (primary) hypertension; I25.10 Atherosclerotic heart disease of native coronary artery without angina pectoris; J43.9 Emphysema, unspecified; J96.01 Acute respiratory failure with hypoxia; Z79.01 Long term (current) use of anticoagulants; Z79.4 Long term (current) use of insulin; Z79.52 Long term (current) use of systemic steroids; Z87.891 Personal history of nicotine dependence; Z90.49 Acquired absence of other specified parts of digestive tract; Z95.1 Presence of aortocoronary bypass graft; Z90.710 Acquired absence of both cervix and uterus; Z95.5 Presence of coronary angioplasty implant and graft; Z96.659 Presence of unspecified artificial knee joint; Z86.711 Personal history of pulmonary embolism; Z68.39 Body mass index [BMI] 39.0-39.9, adult; W19.XXXA Unspecified fall, initial encounter; Y93.89 Activity, other specified; Y92.89 Other specified places as the place of occurrence of the external cause; Y99.8 Other external cause status; K21.9 Gastro-esophageal reflux disease without esophagitis ==

== ENCOUNTER → 2019-11-03 | Outpatient (CLI) | payer OTHER | LOC: HYPER 14:20 | DX: E11.622 Type 2 diabetes mellitus with other skin ulcer (principal); L97.812 Non-pressure chronic ulcer of other part of right lower leg with fat layer exposed; L03.115 Cellulitis of right lower limb; S81.812D Laceration without foreign body, left lower leg, subsequent encounter; S81.001D Unspecified open wound, right knee, subsequent encounter; S90.415D Abrasion, left lesser toe(s), subsequent encounter; S90.414D Abrasion, right lesser toe(s), subsequent encounter; E11.51 Type 2 diabetes mellitus with diabetic peripheral angiopathy without gangrene; J43.9 Emphysema, unspecified; I10 Essential (primary) hypertension; E78.00 Pure hypercholesterolemia, unspecified; I25.10 Atherosclerotic heart disease of native coronary artery without angina pectoris; G47.33 Obstructive sleep apnea (adult) (pediatric); E66.01 Morbid (severe) obesity due to excess calories; Z68.39 Body mass index [BMI] 39.0-39.9, adult; Z91.81 History of falling; Z79.4 Long term (current) use of insulin; Z79.01 Long term (current) use of anticoagulants; Z79.52 Long term (current) use of systemic steroids; Z86.711 Personal history of pulmonary embolism; Z95.828 Presence of other vascular implants and grafts; Z96.659 Presence of unspecified artificial knee joint; Z87.891 Personal history of nicotine dependence; Z90.49 Acquired absence of other specified parts of digestive tract; Z90.710 Acquired absence of both cervix and uterus; W19.XXXD Unspecified fall, subsequent encounter ==

== ENCOUNTER → 2019-11-10 | Outpatient (CLI) | payer OTHER | LOC: HYPER 14:09 | DX: E11.622 Type 2 diabetes mellitus with other skin ulcer (principal); L97.812 Non-pressure chronic ulcer of other part of right lower leg with fat layer exposed; E11.621 Type 2 diabetes mellitus with foot ulcer; L89.612 Pressure ulcer of right heel, stage 2; L97.411 Non-pressure chronic ulcer of right heel and midfoot limited to breakdown of skin; S61.204A Unspecified open wound of right ring finger without damage to nail, initial encounter; S61.207A Unspecified open wound of left little finger without damage to nail, initial encounter; S81.811D Laceration without foreign body, right lower leg, subsequent encounter; S81.011D Laceration without foreign body, right knee, subsequent encounter; L03.115 Cellulitis of right lower limb; E11.51 Type 2 diabetes mellitus with diabetic peripheral angiopathy without gangrene; R06.02 Shortness of breath; J43.9 Emphysema, unspecified; I25.10 Atherosclerotic heart disease of native coronary artery without angina pectoris; E78.00 Pure hypercholesterolemia, unspecified; G47.33 Obstructive sleep apnea (adult) (pediatric); E66.01 Morbid (severe) obesity due to excess calories; Z68.39 Body mass index [BMI] 39.0-39.9, adult; Z79.52 Long term (current) use of systemic steroids; Z79.01 Long term (current) use of anticoagulants; Z79.4 Long term (current) use of insulin; Z86.711 Personal history of pulmonary embolism; Z91.81 History of falling; Z90.49 Acquired absence of other specified parts of digestive tract; Z95.1 Presence of aortocoronary bypass graft; Z90.710 Acquired absence of both cervix and uterus; Z96.659 Presence of unspecified artificial knee joint; Z87.891 Personal history of nicotine dependence; X58.XXXA Exposure to other specified factors, initial encounter; X58.XXXD Exposure to other specified factors, subsequent encounter; Y93.89 Activity, other specified; Y92.89 Other specified places as the place of occurrence of the external cause; Y99.8 Other external cause status ==

== ENCOUNTER → 2019-11-17 | Outpatient (CLI) | payer OTHER | LOC: HYPER 14:07 | DX: E11.622 Type 2 diabetes mellitus with other skin ulcer (principal); L97.812 Non-pressure chronic ulcer of other part of right lower leg with fat layer exposed; L89.612 Pressure ulcer of right heel, stage 2; L97.411 Non-pressure chronic ulcer of right heel and midfoot limited to breakdown of skin; S30.810A Abrasion of lower back and pelvis, initial encounter; S81.011D Laceration without foreign body, right knee, subsequent encounter; S81.811D Laceration without foreign body, right lower leg, subsequent encounter; S61.206D Unspecified open wound of right little finger without damage to nail, subsequent encounter; S61.205D Unspecified open wound of left ring finger without damage to nail, subsequent encounter; E11.51 Type 2 diabetes mellitus with diabetic peripheral angiopathy without gangrene; J43.9 Emphysema, unspecified; R06.02 Shortness of breath; I25.10 Atherosclerotic heart disease of native coronary artery without angina pectoris; I10 Essential (primary) hypertension; E78.00 Pure hypercholesterolemia, unspecified; E66.01 Morbid (severe) obesity due to excess calories; G47.33 Obstructive sleep apnea (adult) (pediatric); Z86.711 Personal history of pulmonary embolism; Z68.39 Body mass index [BMI] 39.0-39.9, adult; Z96.659 Presence of unspecified artificial knee joint; Z87.891 Personal history of nicotine dependence; Z91.81 History of falling; Z79.52 Long term (current) use of systemic steroids; Z79.01 Long term (current) use of anticoagulants; Z79.4 Long term (current) use of insulin; Z90.49 Acquired absence of other specified parts of digestive tract; Z90.710 Acquired absence of both cervix and uterus; W19.XXXD Unspecified fall, subsequent encounter; X58.XXXA Exposure to other specified factors, initial encounter; Y93.89 Activity, other specified; Y92.89 Other specified places as the place of occurrence of the external cause; Y99.8 Other external cause status ==

== ENCOUNTER → 2019-11-23 | Outpatient (CLI) | payer OTHER ==
[~2019-11-23] VITALS: Ht 167.6 cm; Wt 108.4 kg
[~2019-11-23] MED LIST changes: +NARCAN4 MG NARES
[2019-11-23 12:39] VITALS: BP 144/71
--- NOTE | 2019-11-23 12:44 | NUR ---
Pain Clinic Assessment: 1. History of Osteoarthritis: BACK History of Rheumatoid Arthritis: Not Applicable 2. Height: 5 ft. 6 in. 167.6 cm. Weight: 239.0 lb. oz. 108.410 kg. Patient's BMI: 38.6 3. Vital Signs: BP: 144/71 Pulse: 89 Resp: 18 Temp: 02 Sat: 100 ECG Mon: 4. Pain Intensity: 6-7 5. Fall Risk: Dizziness: N Needs help standing or walking: N Fallen in the last 3 months: Y Fall risk comments: FELL TWICE IN LAST TWO MONTHS. ONCE FELL OUT OF BED; THN FELL WITH WALKER AND LACERATED ANKLE AND HEAD 6. Patient on Blood Thinner: Warfarin (Coumadin) 7. History of Hypertension: Y 8. Opioid Therapy greater than 6 weeks: Y Opiate Contract Signed: 9. Risk Assessment Tool Provided: LOW RISK 09/23 10. Functional Assessment Tool: 11. Recreational Drug Use: Never Drug Type: Tobacco Use: Never Smoker Tobacco Type: Amount or Packs/day: How Many Years: Alcohol Use: No Frequency: Quant:
--- NOTE | 2019-12-06 10:01 | HPC ---
[facility] [place] [address] PAIN MANAGEMENT CONSULTATION Name: ESTEBAN ORO Room #: REG LAWRENCE ArmstrongAurea#: [id number] Admission: 11/23/19 Attend Phys: Jennifer Longoria MD Discharge: Date of : 37 Report #: [id number] THIS REPORT FOR: cc: Titi Bobo MD, Neal A. MD Brown,Jennifer Lerner MD ~ CC: Jennifer Bobo DATE OF SERVICE: 11/23/2019 CHIEF COMPLAINT: Here for medications. "I fell and got stitches. I fell a second time and got more stitches." HISTORY: The patient is an 84-year-old female who has been followed in the pain clinic. She continues to have pain and discomfort, which is problematic. Her pain is primarily in the low back area. She has a history of spinal stenosis. She continues to have pain that radiates down in the lower portion of her back, right side is most problematic. She states that she fell twice in the last 2 months. She fell once out of bed, then she fell with a walker and lacerated her ankle as well as her head. She is healing reasonably well at this juncture. She has returned today for renewal of her medications. She did not fall because of confusion in regards to her medications. ALLERGIES: ADHESIVE TAPE, MORPHINE, CODEINE, DOXYCYCLINE, CITALOPRAM AND TIZANIDINE. CURRENT MEDICATIONS: Amlodipine, Cymbalta 60 mg b.i.d., Lipitor 40 mg, vitamin D, Singulair 10 mg, insulin as directed, Levemir, oxycodone 7.5 mg t.i.d., methadone 10 mg b.i.d., Tegretol 200 mg b.i.d., baclofen 10 mg 1-2 tablets at bedtime, Belsomra 20 mg at bedtime, Trelegy inhaler, Lutein, prednisone 40 mg, Aricept 10 mg b.i.d., Bystolic 10 mg, Demadex 20 mg, Ventolin inhaler, albuterol inhaler, vitamin B12, Protonix, Coumadin 8 mg daily, MiraLax daily and Cozaar. PAIN CLINIC ASSESSMENT AND PQRS: 1. The patient is having pain and discomfort in her hip, hands and feet. She is not being treated for rheumatoid arthritis. 2. Height 5 feet 6 inches, weight 239 pounds, BMI is 38.6. 3. Vital signs: Blood pressure 144/71, pulse 89, respiratory rate 18, room air saturation 100%. 4. Pain intensity 6-7/10. 5. Fall risk as described above. The patient has fallen twice. 6. Blood thinner. The patient is on a blood thinning medication Coumadin. 7. History of hypertension. The patient is being treated for hypertension. 8. Opioids greater than 6 weeks. The patient received medication from one source, the [place] [address] PAIN MANAGEMENT CONSULTATION Name: ESTEBAN ORO Alvin Room #: REG LAWRENCE Jacob#: [id number] Admission: 11/23/19 Attend Phys: Jennifer Longoria MD Discharge: Date of : 37 Report #: [id number] 9. Risk assessment tool . 10. Recreational drug use: The patient denies. 11. Tobacco: The patient has never smoked. 12. Alcohol. The patient denies frequent use of alcoholic beverages. PHYSICAL EXAMINATION: GENERAL: The patient is a well-developed, well-nourished white female. Appears somewhat obese. She is alert and oriented x 3. She is accompanied by her family member. She is on oxygen via nasal cannula. HEENT: The patient has nasal cannula in place. NECK: Without adenopathy or JVD. EXTREMITIES: Upper extremity muscle strength 4+/5 for the major muscle groups in the upper extremity. Lower extremity muscle strength 4+/5 for the major muscle groups in the lower extremity. Has pain radiating down into the right leg. She has a scar in the lower extremity after her fall and has had a number of stitches placed to close her wound. RECOMMENDATIONS: We discussed treatment options with the patient. At this juncture, we will continue with her medications. The patient feels that the medications are helpful. She would like to continue with the methadone. A script for this medication has been rewritten. She will continue with her medication as prescribed. The patient will also continue with Tegretol 200 mg b.i.d. She refused baclofen 10 mg for muscle spasms. She will also continue with Percocet to help control the pain. The patient has been provided with a Narcan injector should she have respiratory depression or there are some concern that someone in the family gets her medications. She will call us if she has any concerns. We would like to thank you for letting us participate in her care. We hope she continues to improve. <ELECTRONICALLY SIGNED> By: Jennifer Longoria MD 12/06/19 1001 0849 1411 Jennifer Longoria MD /nt
== END ==
LOC: PAIN 06:54
DX: M79.642 Pain in left hand (principal); M79.641 Pain in right hand; M79.672 Pain in left foot; M79.671 Pain in right foot; M25.559 Pain in unspecified hip; I10 Essential (primary) hypertension; Z88.5 Allergy status to narcotic agent; Z88.8 Allergy status to other drugs, medicaments and biological substances; Z79.899 Other long term (current) drug therapy; W19.XXXA Unspecified fall, initial encounter; Y93.89 Activity, other specified; Y92.89 Other specified places as the place of occurrence of the external cause; Y99.8 Other external cause status

== ENCOUNTER → 2019-11-23 | Outpatient (CLI) | payer OTHER | LOC: HYPER 13:38 | DX: E11.621 Type 2 diabetes mellitus with foot ulcer (principal); L89.612 Pressure ulcer of right heel, stage 2; L97.411 Non-pressure chronic ulcer of right heel and midfoot limited to breakdown of skin; E11.622 Type 2 diabetes mellitus with other skin ulcer; L97.812 Non-pressure chronic ulcer of other part of right lower leg with fat layer exposed; S81.811D Laceration without foreign body, right lower leg, subsequent encounter; E11.51 Type 2 diabetes mellitus with diabetic peripheral angiopathy without gangrene; E78.00 Pure hypercholesterolemia, unspecified; E66.9 Obesity, unspecified; E66.01 Morbid (severe) obesity due to excess calories; G47.33 Obstructive sleep apnea (adult) (pediatric); J43.9 Emphysema, unspecified; I25.10 Atherosclerotic heart disease of native coronary artery without angina pectoris; J96.11 Chronic respiratory failure with hypoxia; K21.9 Gastro-esophageal reflux disease without esophagitis; Z79.01 Long term (current) use of anticoagulants; Z79.4 Long term (current) use of insulin; Z79.52 Long term (current) use of systemic steroids; Z86.711 Personal history of pulmonary embolism; Z68.39 Body mass index [BMI] 39.0-39.9, adult; Z90.49 Acquired absence of other specified parts of digestive tract; Z95.1 Presence of aortocoronary bypass graft; Z90.710 Acquired absence of both cervix and uterus; Z96.659 Presence of unspecified artificial knee joint; Z87.891 Personal history of nicotine dependence; W19.XXXD Unspecified fall, subsequent encounter ==

== ENCOUNTER → 2020-01-19 | Outpatient (CLI) | payer OTHER ==
[~2020-01-19] VITALS: Ht 167.6 cm; Wt 111.1 kg
[~2020-01-19] MED LIST changes: +LEVEMIR FL100 UNIT/2 SUBQ; -YUPELRI175 MCG/3; +YUPELRI175 MCG/3 INH
--- NOTE | 2020-01-19 11:26 | P ---
[facility] [place] [address] PROCEDURE REPORT Name: ESTEBAN ORO Room #: REG LAWRENCE Armstrong#: [id number] Admission: 01/19/20 Attend Phys: Uday Peralta MD Discharge: Date of : 37 Report #: [id number] THIS REPORT FOR: cc: Clayton Castillo MD, Eric K. MD Thesing,Uday Yi MD ~ CC: Clayton Peralta BRIEF HISTORY: The patient is an 84-year-old woman known to me with multiple comorbidities including diabetes with recurrent solid food dysphagia. She also reports frequent nausea and vomiting. She does use methadone and oxycodone for chronic pain. She clearly has symptoms of early satiety as well. However, there has not been significant weight loss recently. She presents for further management of her dysphagia as well as nausea and vomiting. PREOPERATIVE DIAGNOSES: Dysphagia, nausea and vomiting. POSTOPERATIVE DIAGNOSES: 1. Moderately severe antral gastritis. 2. Retained food material in the stomach consistent with gastroparesis. 3. Mild distal esophagitis. 4. Dysphagia. MEDICATIONS: Deep sedation with propofol per anesthesia. SPECIMENS: 1. Biopsies of esophagus. 2. Biopsies of gastritis. ESTIMATED BLOOD LOSS: 3 mL. PROCEDURE: EGD with biopsy. FINDINGS: Prior to propofol sedation, procedure of upper endoscopy and dilation was reviewed with the patient as well as potential risks, benefits and complications. She indicates she understands and desires to proceed. DESCRIPTION OF PROCEDURE: With the patient in left lateral decubitus position, the Olympus video endoscope was inserted in cervical esophagus under direct vision without difficulty. Examination of this organ through its entire length revealed normal esophageal mucosa in the proximal esophagus. However, the scope was advanced, there was noted to be desquamation of the squamous mucosa. However, ulcers or erosions were not seen. These findings were felt to be consistent with a mild diffuse distal esophagitis. In terms of her dysphagia, no strictures or masses were seen in the distal esophagus or the GE junction. [facility] [address] [place] [address] PROCEDURE REPORT Name: ESTEBAN ORO Room #: REG [facility]#: [id number] Admission: 01/19/20 Attend Phys: Uday Peralta MD Discharge: Date of : 37 Report #: [id number] significant hiatus hernia was not seen. Scope was advanced in the stomach, was examined on end view as well as retroflexed views. There was a pattern of gastritis with diffuse erythema. No ulcers or erosions were seen. Upon retroflexion, no mass lesions were seen. There was a small amount of solid food material in the body of the stomach. There was a linear erythematous antral gastritis. There was no evidence of obstructing lesions. Pylorus was unremarkable. Duodenal bulb was unremarkable. Postbulbar duodenal sweep was unremarkable. At that point, the scope was slowly withdrawn and careful circumferential views were obtained. Biopsies obtained of the gastritis as well as the esophagus in particular to evaluate her esophagus for eosinophilic esophagitis since a definite stricture was not seen. Following the endoscopy, she was dilated with passage of 52-Maori Roberts dilator. There was no resistance. CONDITION OF THE PATIENT UPON DISCHARGE: Following procedure, the patient drowsy. She will be discharged to home when fully ambulatory. INSTRUCTIONS TO THE PATIENT AND FAMILY AT THE TIME OF DISCHARGE: We will follow up on biopsies obtained today. She is to continue her PPI. She clearly has evidence of gastroparesis. However, at this point in time due to multiple comorbidities, we will hold off on a prokinetic. She does have Zofran at home. We will place her on transderm scopolamine patch. I will have her return to see me in followup in the office in about 4 weeks. If she has significant problems with gastroparesis, we may need to consider prokinetic at a later date. If symptoms of dysphagia persist, a manometric study may be helpful. <ELECTRONICALLY SIGNED> By: Uday Peralta MD 01/19/20 1126 0949 1008 Uday Peralta MD /nt
--- NOTE | 2020-01-20 17:07 | PATH ---
[facility] [place] [address] [place] [place] [address] PATHOLOGY RPT PROCEDURE Name: KEYONA ORO Alvin Room #: REG LAWRENCE Nidia#: [id number] Admission: 01/19/20 Date of : 37 Discharge: Report #: [id number] Path Case #: [id number] [facility] Accession Number: [id number] . 01 Material submitted: . PART A: esophagus - BX OF ESOPHAGUS PART B: stomach - BX OF GASTRITIS . 01 Clinical history: . Pre-op diagnosis: Dysphagia Post-op diagnosis: Dysphagia; gastritis A. R/O eosinophilic esophagitis B. R/O H. pylori . 02 Diagnosis: A. Gastroesophageal mucosa, esophagus R/O eosinophilic esophagitis, endoscopic biopsy: - Squamous mucosa showing mild esophagitis without any increase in intraepithelial eosinophils. - Gastric-type mucosa with moderate chronic inflammation. - Negative for intestinal metaplasia or dysplasia. . B. Gastric mucosa, gastritis R/O H. pylori, endoscopic biopsy: - Mild reactive gastropathy. - Negative for intestinal metaplasia or atrophy. - Negative for Helicobacter pylori (properly controlled immunohistochemical stain performed). . (IUV:bev; 01/20/2020) QMS 01/20/2020 1305 Local . 02 Electronically signed: . Tania Hudson MD, Pathologist NPI- [id number] . 01 Gross description: . A. The specimen is received in formalin, labeled "Keyona Oro, biopsy of esophagus, R/O EOE". Received are five segments of pale vasquez soft tissue ranging in size from 0.3 to 0.4 cm in maximum dimensions. The specimen is submitted entirely in cassette A1. . B. The specimen is received in formalin, labeled "Keyona Oro, biopsy of gastritis, R/O H. pylori". Received are three segments of pale vasquez soft tissue ranging in size from 0.3 to 0.8 cm in maximum dimensions. The specimen is submitted entirely in cassette B1. (CAA; 01/19/2020) QAC/QAC 01/19/2020 [address] [place] [address] PATHOLOGY RPT PROCEDURE Name: KEYONA ORO Room #: REG LAWRENCE Jacob#: [id number] Admission: 01/19/20 Date of : 37 Discharge: Report #: [id number] Path Case #: [id number] . 02 Pathologist provided ICD-10: K29.50, K31.9 . 02 CPT . 204054, 193704, [id number] Specimen Comment: A courtesy copy of this report has been sent to [phone], [phone] Specimen Comment: [id number] Specimen Comment: Report sent to / DR GALEAS Performed at: [address] [facility], [place], [place] [id number] MD Chandrakant Freed MD Phone: [phone] Performed at: [address] [facility] [id number] MD Tania Hudson MD Phone: [phone]
== END | disposition home or self-care (01) ==
LOC: GI 07:55
PROVIDERS: Specialist
DX: R13.19 Other dysphagia (principal); R11.2 Nausea with vomiting, unspecified; K31.9 Disease of stomach and duodenum, unspecified; K29.50 Unspecified chronic gastritis without bleeding; K20.9 Esophagitis, unspecified; I13.0 Hypertensive heart and chronic kidney disease with heart failure and stage 1 through stage 4 chronic kidney disease, or unspecified chronic kidney disease; E11.22 Type 2 diabetes mellitus with diabetic chronic kidney disease; N18.2 Chronic kidney disease, stage 2 (mild); J43.9 Emphysema, unspecified; I25.10 Atherosclerotic heart disease of native coronary artery without angina pectoris; F41.9 Anxiety disorder, unspecified; G47.30 Sleep apnea, unspecified; I50.9 Heart failure, unspecified; K21.9 Gastro-esophageal reflux disease without esophagitis; E78.5 Hyperlipidemia, unspecified; M19.90 Unspecified osteoarthritis, unspecified site; Z98.890 Other specified postprocedural states; Z79.899 Other long term (current) drug therapy; Z95.1 Presence of aortocoronary bypass graft; Z90.49 Acquired absence of other specified parts of digestive tract; Z90.710 Acquired absence of both cervix and uterus; Z87.891 Personal history of nicotine dependence; Z87.442 Personal history of urinary calculi; Z98.41 Cataract extraction status, right eye; Z98.42 Cataract extraction status, left eye; Z86.718 Personal history of other venous thrombosis and embolism; Z79.01 Long term (current) use of anticoagulants; Z86.711 Personal history of pulmonary embolism
CPT/HCPCS: 62110; 62900

== ENCOUNTER → 2020-02-03 | Outpatient (CLI) | payer OTHER ==
--- NOTE | 2020-02-06 14:51 | HPC ---
[facility] [address] [place] [address] PAIN MANAGEMENT CONSULTATION Name: ESTEBAN ORO Room #: [facility] [id number] Admission: 02/03/20 Attend Phys: Savita Dominique Discharge: Date of : 37 Report #: [id number] THIS REPORT FOR: cc: Clayton Castillo MD, Eric K. MD Hocker, Amanda CNS ~ CC: Rohan Longoria MD DATE OF SERVICE: 02/03/2020 CHIEF COMPLAINT: Chronic low back pain. This is a telemedicine appointment from 9:54 to 10:04 due to the patient's comorbidities during the COVID outbreak. This is an audio visual telemedicine appointment. HISTORY OF PRESENT ILLNESS: As you know, this is a very pleasant 84-year-old female who I am speaking with via a telemedicine appointment for her medication management refills. She is reporting today that her pain score is fairly well maintained on her current regimen of methadone and oxycodone, rating at a 4/10 today. She states it is in her lower back and radiating into her left hip. She reports that it is an aching, occasionally sharp pain, worse with any activities. She does use a walker at all times. She reports that she has not had any falls since our previous visit with her and that her previous stitches area are very well healed. She reports that her medication as well as lying down are the most beneficial. She is at home with both of her daughters who are present during this telemedicine appointment. ALLERGIES: ADHESIVE TAPE, MORPHINE, CODEINE, DOXYCYCLINE, TIZANIDINE. CURRENT LIST OF MEDICATIONS: Yupelri, Perforomist, Pulmicort, Coumadin, vitamin B12, torsemide, Aricept, methadone, oxycodone, baclofen, Zinc, prednisone, Bystolic, Protonix, MiraLax, Cozaar, Norvasc, Cymbalta, Lipitor, vitamin D, Humalog insulin, and Levemir insulin. PATIENT'S PQRS: 1. She has osteoarthritis in her hips, hands and feet. Denies being treated for rheumatoid arthritis. 2. Height, weight and vital signs were not completed today due to a telemedicine appointment. 3. Pain score is 4/10. 4. Denies dizziness. Does use a walker at all times. Has fallen in the last 3 months. 5. The patient is on Coumadin as well as medicines for hypertension. 6. Opioid therapy is greater than 6 weeks; therefore, an opioid signed contract is on the chart. Her risk assessment tool is [place] [address] PAIN MANAGEMENT CONSULTATION Name: ESTEBAN ORO Room #: [facility] [id number] Admission: 02/03/20 Attend Phys: Savita Dominique Discharge: Date of : 37 Report #: [id number] 49/70. 7. Recreational drug use, she denies. She is not a smoker and does not drink alcohol. According to the prescription monitoring system, the patient is due to fill her medications today. She is filling them in a timely fashion from Dr. Darell Longoria. According to the CDC guidelines, her morphine milliequivalent is 105. She is followed every 2 months and has been stable on these meds for quite some time. PHYSICAL EXAMINATION: This is a review of systems, she is an alert and orientated 84-year-old female who is answering all my questions appropriately. If she does have questions, her family member is helping her out on the conversation today. She states she is wearing her oxygen at 2 liters. The patient does complain of pain across the lower part of her back that radiates into her hip only today. She states that all of her wounds from her stitches have healed. We reviewed the fact that opiate medications are being used to provide analgesia adequate to support activities of daily living, not attempting to achieve a specific pain score on the 0-10 Visual Analog Scale. The current opiate medications are providing sufficient analgesia to allow the patient to participate in activities of daily living. The patient is not exhibiting any aberrant behavior suggestive of drug diversion. The patient is not having any adverse reactions to medications. The patient is not suffering from daytime somnolence or mental acuity changes. The patient is managing opiate-induced constipation with appropriate sfrm-elu-btsktiy agents and dietary considerations. The patient was counseled on concern for caution with operating a motor vehicle while using opiate medications. PLAN: 1. We discussed treatment options with the patient today. The patient states that medications are very beneficial. Denies problems with constipation as long as she takes her MiraLax on a regular basis. Today, we will refill her medications and send them electronically by Dr. Darell Longoria to her pharmacy. Scripts filled are methadone 10 mg b.i.d., #60 for today and 4-week release and Percocet 7.5/325, #120 for today and 4-week release. 2. Baclofen 10 mg 1-2 at bedtime, #60 for 4 refills and Tegretol 200 mg b.i.d., #60 with 4 additional refills. 3. We encouraged the patient to stay safe and at home during this COVID outbreak and hopefully we will see her again in 2 months for her prescription refill or to the patient to call in the future if she does feel like she needs another injection, which she does have periodically from Dr. Longoria. [facility] [address] [place] [address] PAIN MANAGEMENT CONSULTATION Name: ESTEBAN ORO Room #: [facility] [id number] Admission: 02/03/20 Attend Phys: Savita Dominique Discharge: Date of : 37 Report #: [id number] 4. This case was discussed with Dr. Longoria via the telemedicine appointment and collaborated care. <ELECTRONICALLY SIGNED> By: Savita Dominique 02/06/20 1451 [id number] [id number] Savita Dominique /nt
== END ==
LOC: TELEPC 06:57 → PAIN 08:45
DX: G89.29 Other chronic pain (principal); M54.5 Low back pain; M16.0 Bilateral primary osteoarthritis of hip; M19.042 Primary osteoarthritis, left hand; M19.041 Primary osteoarthritis, right hand; M19.072 Primary osteoarthritis, left ankle and foot; M19.071 Primary osteoarthritis, right ankle and foot; Z88.8 Allergy status to other drugs, medicaments and biological substances; Z79.899 Other long term (current) drug therapy

== ENCOUNTER → 2020-03-22 | Outpatient (CLI) | payer OTHER | LOC: RAD 13:54 | PROVIDERS: ATTEND Family Medicine | DX: J43.9 Emphysema, unspecified (principal); J98.4 Other disorders of lung ==

== ENCOUNTER → 2020-04-04 | Outpatient (CLI) | payer OTHER ==
--- NOTE | 2020-04-04 15:35 | HPC ---
[facility] [address] [place] [address] PAIN MANAGEMENT CONSULTATION Name: ESTEBAN ORO Room #: REG [facility] Nidia#: [id number] Admission: 04/04/20 Attend Phys: Savita Dominique Discharge: Date of : 37 Report #: [id number] THIS REPORT FOR: cc: Titi Bobo MD, Neal A. MD Hocker, Amanda CNS ~ CC: Rohan Longoria MD DATE OF SERVICE: 04/04/2020 CHIEF COMPLAINT: Chronic low back pain. This is a telemed appointment from 11:00-11:20 via the telephone during this COVID outbreak that she has consented to. HISTORY OF PRESENT ILLNESS: As you know, this is a very pleasant 85-year-old female who I am having a conversation with via the telephone today for her appointment. The patient is in ill health and is at home. Her daughter is there with her helping take care of her. The patient is answering all my questions appropriately on the phone today. She is stating that her pain is a 6-7 in her lower back as well as in her shoulders. She feels that it has been increasing and that her medications have been not lasting as long. She is wondering if we are able to increase her methadone to help her ongoing pain. The family is requiring to help her more each day. They are assisting her with most of her activities of daily living due to increase in her pain. She denies any problems with constipation or somnolence as a result of her medications, though she is becoming more forgetful per the daughter, Sherry, who is on the phone conversation today. Dr. Longoria has been giving her periodic injections, though they have been losing their efficacy and the last injection was not beneficial that she had in August. ALLERGIES: ADHESIVE TAPE, MORPHINE, CODEINE, DOXYCYCLINE, and TIZANIDINE. CURRENT LIST OF MEDICATIONS: Pulmicort, Coumadin, vitamin B12, torsemide, Aricept, methadone 10 mg b.i.d., oxycodone 7.5/325 q.i.d., baclofen, zinc, prednisone, Bystolic, Protonix, MiraLax, Cozaar, Norvasc, Cymbalta, Lipitor, vitamin D, and insulin. PQRS: 1. She has osteoarthritic changes in her hands, hips, feet and lumbar spine. Denies any rheumatoid arthritis. I did not do a height, weight and vital signs since this is a telemed appointment today. 2. Pain score is 6-7. 3. Denies dizziness. The patient needs a walker at all times or is in a wheelchair and needs significant help with moving. She has not fallen in the last [address] [address] PAIN MANAGEMENT CONSULTATION Name: FELICITAPRISCILAESTEBAN Alvin Room #: REG CL Nidia#: [id number] Admission: 04/04/20 Attend Phys: Savita Dominique Discharge: Date of : 37 Report #: [id number] 4. The patient remains on anticoagulation therapy of Coumadin as well as medicines for hypertension. 5. Opioid therapy is greater than 6 weeks; therefore, she has a signed contract on the chart. Her risk assessment is low. Her functional assessment is 49/70. 6. Recreational drug use, she denies. She is not a smoker and does not drink alcohol. According to the prescription monitoring system, the patient has been filling her medications appropriately in a timely fashion. Her morphine mEq is 105 according to the CDC guidelines. PHYSICAL EXAMINATION: This is a review of systems today due to a telemed appointment. She is an alert, orientated at times, 85-year-old who is forgetful at times throughout our questioning and her daughter does help her with the responses. She reports a pain score at 6-7/10 today, located in her lower back but does radiate into her legs as well as bilateral shoulder pain. She is wearing oxygen at 2 liters. We reviewed the fact that opiate medications are being used to provide analgesia adequate to support activities of daily living, not attempting to achieve a specific pain score on the 0-10 Visual Analog Scale. The current opiate medications are providing sufficient analgesia to allow the patient to participate in activities of daily living. The patient is not exhibiting any aberrant behavior suggestive of drug diversion. The patient is not having any adverse reactions to medications. The patient is not suffering from daytime somnolence or mental acuity changes. The patient is managing opiate-induced constipation with appropriate tmjz-upl-cguoifp agents and dietary considerations. The patient was counseled on concern for caution with operating a motor vehicle while using opiate medications. IMPRESSION: 1. Lumbar radiculopathy with history of spinal stenosis in a L5-S1 dermatomal distribution. 2. Peripheral neuropathy. 3. Osteoarthritis. 4. Management of pain with utilizing scheduled medications. 5. Chronic back pain. 6. Degenerative joint disease. 7. Memory issues utilizing Aricept. PLAN: 1. We discussed treatment options with the patient today. Dr. Darell Longoria was part of this discussion as well. The patient has been having increased pain, especially in the middle of the day, she does moan and call out, though she does not ask for her pain medications. Family feels that she is not remembering to ask for them. They are wondering if we are able to increase her methadone [facility] [place] [address] [place] [address] PAIN MANAGEMENT CONSULTATION Name: ESTEBAN ORO Alvin Room #: REG [facility] Jacob#: [id number] Admission: 04/04/20 Attend Phys: Savita Dominique Discharge: Date of : 37 Report #: [id number] slightly to see if this is beneficial since she is not utilizing her breakthrough pain medicine because she is not remembering. Dr. Longoria is willing to increase her methadone from 10 mg in the morning, 5 mg midday to 10 mg at night for a trial to see if this is beneficial. He will send scripts electronically for 75 tablets. 2. The patient to continue her oxycodone and determine if she is taking less of this medication with the increase of methadone. They are to call in 2 weeks to report how they are doing. At that time, we will determine if she is coming back for another appointment or if we will send electronically her second month of medications. Family verbalizes understanding of all of this. 3. She is not needing her carbamazepine or baclofen refill today. She has plenty of refills and continues to find these beneficial. 4. The patient discussed over the phone for a telemed appointment with Dr. Darell Longoria who collaborated care today and made adjustments. <ELECTRONICALLY SIGNED> By: Savita Dominique 04/04/20 1535 1133 1449 Savita Dominique /chau
== END ==
LOC: PAIN 07:02 → TELEPC 07:02
PROVIDERS: ATTEND Clinical Nurse Specialist Adult Health
DX: M54.16 Radiculopathy, lumbar region (principal); G00.9 Bacterial meningitis, unspecified; M19.90 Unspecified osteoarthritis, unspecified site; F11.20 Opioid dependence, uncomplicated; M54.9 Dorsalgia, unspecified; Z86.69 Personal history of other diseases of the nervous system and sense organs

== ENCOUNTER → 2020-06-06 | Outpatient (CLI) | payer OTHER ==
[~2020-06-06] VITALS: Ht 165.1 cm; Wt 109.8 kg
[~2020-06-06] MED LIST changes: +CARBAMAZEPINE200 M5 PO; +CLEOCIN HCL150 M1 PO; +PERCOCET 10-321 EAC1 PO
[2020-06-06 12:38] VITALS: BP 140/70
--- NOTE | 2020-06-06 12:50 | NUR ---
Pain Clinic Assessment: 1. History of Osteoarthritis: BACK History of Rheumatoid Arthritis: Not Applicable 2. Height: 5 ft. 5 in. 165.1 cm. Weight: 242.0 lb. oz. 109.771 kg. Patient's BMI: 40.3 3. Vital Signs: BP: 140/70 Pulse: 81 Resp: 16 Temp: 02 Sat: 100 ECG Mon: 4. Pain Intensity: 5 5. Fall Risk: Dizziness: N Needs help standing or walking: N Fallen in the last 3 months: N Fall risk comments: FELL TWICE IN LAST TWO MONTHS. ONCE FELL OUT OF BED; THN FELL WITH WALKER AND LACERATED ANKLE AND HEAD 6. Patient on Blood Thinner: Warfarin (Coumadin) 7. History of Hypertension: Y 8. Opioid Therapy greater than 6 weeks: Y Opiate Contract Signed: 9. Risk Assessment Tool Provided: LOW RISK 1 10. Functional Assessment Tool: 49/70 11. Recreational Drug Use: Never Drug Type: Tobacco Use: Former Smoker Tobacco Type: Amount or Packs/day: How Many Years: Alcohol Use: No Frequency: Quant:
--- NOTE | 2020-06-08 07:37 | HPC ---
[facility] [address] [place] [address] PAIN MANAGEMENT CONSULTATION Name: ESTEBAN ORO [facility] #: [facility] [id number] Admission: 06/06/20 Attend Phys: Savita Dominique Discharge: Date of : 37 Report #: [id number] THIS REPORT FOR: cc: Titi Bobo MD, Neal A. MD Hocker, Amanda CNS ~ CC: Rohan Longoria MD DATE OF SERVICE: 06/06/2020 CHIEF COMPLAINT: Chronic low back pain. HISTORY OF PRESENT ILLNESS: This is a very pleasant 85-year-old female, who is here today with her daughter for refill of her opioid medications. Today, she is reporting a pain score of 5/10. She feels that the slight increase in her short-acting medication had been beneficial and continues to find the methadone helpful as well. She reports most of her pain is in her lower back today, though she does experience pain in her left hip and her left leg as well, characterizing her pain as an aching, numbness, tingling and occasional sharp, worse with standing, walking and activity. She is in a wheelchair today. She has been having hard time getting around her in house. She does wear oxygen at all times at 3 liters, carrying her concentrator does make it more difficult with mobility. She does report that lying down as well as ice have also been beneficial. She denies significant constipation or daytime drowsiness as a result of her medications. The patient reports that she has been going to the wound clinic for an open lesion on her lower extremities. She feels that this is slowly resolving. She does have lymphedema pumps at home and does have compression hose on today. She continues to be on oral antibiotics as well. ALLERGIES: MORPHINE, CODEINE, DOXYCYCLINE ADHESIVE TAPE, CITALOPRAM, TIZANIDINE. CURRENT LIST OF MEDICATIONS: Clindamycin; oxycodone 10/325; methadone 10 mg in the morning, 5 midday, 10 at night; Tegretol; baclofen; Humalog; Levemir; Yupelri inhaler, Perforomist nebulizer, Pulmicort, warfarin, vitamin B12, torsemide, Aricept, zinc, prednisone, Bystolic, Protonix, MiraLax, losartan, Norvasc, Cymbalta, Lipitor, and vitamin D. PQRS: 1. The patient has arthritic changes in her hands, hips, feet, and spine. Denies any rheumatoid arthritis. 2. Height is 5 feet 5 inches, weight is 242, BMI is 40. Vital signs 140/70, pulse is 81, respirations 16, oxygen sat is 100, pain score is 5/10. Fall risk, denies dizziness. Does need assistance with ambulation [place] [address] PAIN MANAGEMENT CONSULTATION Name: FELICITAPRISCILAESTEBAN A [facility] [id number] Admission: 06/06/20 Attend Phys: Savita Dominique Discharge: Date of : 37 Report #: [id number] wheelchair, has not fallen in the last 3 months. The patient is on warfarin as well as medicines for hypertension. Opioid therapy is greater than 6 weeks; therefore, an opioid signed contract is on the chart. Risk assessment tool is low. Functional assessment is 49/70. 3. Recreational drug use, she denies. She is a former smoker and does not drink alcohol. According to the prescription monitoring system, the patient is filling appropriately and in a timely fashion. She is due to fill her medications. Her morphine mEq according to the CDC guidelines is 135. PHYSICAL EXAMINATION: GENERAL: This is a well-developed, well-nourished, obese 85-year-old, who is alert and orientated, placing her current pain score today at 5/10. HEENT: Normocephalic, atraumatic. She is wearing a nasal cannula at 3 liters and is wearing a mask. NECK: Without adenopathy or JVD. MUSCULOSKELETAL: The patient moves all extremities without difficulty. Lower extremities reveal 2+ edema that are wrapped with compression hose today. Pain radiates from the lumbosacral region into her left leg. She has positive straight leg raising on the left, negative on the right. Her lower extremities are diminished in strength. She is in a wheelchair today. We reviewed the fact that opiate medications are being used to provide analgesia adequate to support activities of daily living, not attempting to achieve a specific pain score on the 0-10 Visual Analog Scale. The current opiate medications are providing sufficient analgesia to allow the patient to participate in activities of daily living. The patient is not exhibiting any aberrant behavior suggestive of drug diversion. The patient is not having any adverse reactions to medications. The patient is not suffering from daytime somnolence or mental acuity changes. The patient is managing opiate-induced constipation with appropriate oxyk-hng-mcycgio agents and dietary considerations. The patient was counseled on concern for caution with operating a motor vehicle while using opiate medications. A physical exam was performed and the patient's functional status was evaluated. All patients with back pain were advised against the bed rest greater than 4 days and were advised to return to normal activities. Pain score assessment was noted and the treatment plan was reviewed with the patient. All current medications, both prescribed and OTC were reviewed and reconciled on the electronic medical record. Tobacco screening was accomplished and smoking cessation was advised when indicated. BMI was noted and diet/exercise modification was recommended for all patients following outside normal parameters. I reviewed with the patient today their responsibilities to [facility] [address] [address] PAIN MANAGEMENT CONSULTATION Name: DONNACINDYESTEBAN A Room #: REG [facility] Nidia#: [id number] Admission: 06/06/20 Attend Phys: Savita Dominique Discharge: Date of : 37 Report #: [id number] prescription medications, reviewed their responsibility to utilize medications only as prescribed by the physician. They are to seek and receive pain medications only from 1 physician group ( [facility]). They are to use 1 pharmacy and keep the clinic informed if they change pharmacies. Their responsibilities include making followup visits in a timely fashion and to avoid abrupt discontinuation of medication usage. Their responsibilities further include bringing their medications (bottles from the pharmacy with residual pills) to the visit for possible confirmation of pill counts and the patient understands it is their responsibility to submit to random drug screens to ensure both that the medications prescribed are present, and that no other controlled substances are present. All prescriptions provided today were generated electronically. PLAN: 1. We discussed treatment options with the patient today. The patient has found that increase in her oxycodone breakthrough pain from 7.5 to 10 mg has been beneficial. We will continue her at that current strength of #120 tablets for today and 4-week supply. 2. We will refill her methadone 10 mg, taking 10 mg in the morning, 5 midday and 10 at night, quantity 75. Again, this was filled for today and [address] Longoria, who sent these electronically. 3. I will refill her baclofen 10 mg. The patient is allowed 1-2 at bedtime, quantity 60 with 5 refills and her Tegretol 200 mg b.i.d., quantity 60 with 5 refills. 4. We did discuss that it is difficult for her to come to appointments, especially with the oxygen and wearing a mask due to the outbreak of COVID. We will allow her to have a telemedicine appointment in 2 months and at that time, we will reevaluate. Hopefully, she will be able to not wear a mask after the end of the year and will have easier time breathing when she comes to appointments. 5. The patient is seen in collaboration with Dr. Longoria. <ELECTRONICALLY SIGNED> By: Savita Dominique 06/08/20 0737 [id number] Savita Dominique /chau
== END ==
LOC: PAIN 06:55
PROVIDERS: ATTEND Clinical Nurse Specialist Adult Health
DX: M54.5 Low back pain (principal); G89.29 Other chronic pain; Z88.8 Allergy status to other drugs, medicaments and biological substances; Z79.899 Other long term (current) drug therapy

== ENCOUNTER → 2020-06-08 | Outpatient (CLI) | payer OTHER | LOC: SJCVCIMAG 14:35 → SJCVC 14:35 | PROVIDERS: ATTEND Internal Medicine Cardiovascular Disease | DX: I73.9 Peripheral vascular disease, unspecified (principal); I25.10 Atherosclerotic heart disease of native coronary artery without angina pectoris; I10 Essential (primary) hypertension; Z95.820 Peripheral vascular angioplasty status with implants and grafts; Z79.899 Other long term (current) drug therapy ==

== ENCOUNTER → 2020-08-15 | Outpatient (CLI) | payer OTHER | LOC: TELEPC 06:47 → PAIN 13:53 | PROVIDERS: ATTEND Anesthesiology Pain Medicine | DX: M54.16 Radiculopathy, lumbar region (principal); G62.9 Polyneuropathy, unspecified; M19.90 Unspecified osteoarthritis, unspecified site; K21.9 Gastro-esophageal reflux disease without esophagitis; I25.10 Atherosclerotic heart disease of native coronary artery without angina pectoris; E78.00 Pure hypercholesterolemia, unspecified; G89.29 Other chronic pain; G47.30 Sleep apnea, unspecified; I50.9 Heart failure, unspecified; I11.0 Hypertensive heart disease with heart failure; R41.3 Other amnesia; I25.2 Old myocardial infarction; Z98.890 Other specified postprocedural states; Z90.710 Acquired absence of both cervix and uterus; Z90.49 Acquired absence of other specified parts of digestive tract; Z96.651 Presence of right artificial knee joint; Z95.1 Presence of aortocoronary bypass graft; Z79.891 Long term (current) use of opiate analgesic; Z79.899 Other long term (current) drug therapy; Z87.442 Personal history of urinary calculi ==

== ENCOUNTER → 2020-09-03 | Outpatient (CLI) | payer OTHER | LOC: SJCVCIMAG 10:12 | PROVIDERS: ATTEND Internal Medicine Cardiovascular Disease | DX: I08.1 Rheumatic disorders of both mitral and tricuspid valves (principal); I25.10 Atherosclerotic heart disease of native coronary artery without angina pectoris; R94.31 Abnormal electrocardiogram [ECG] [EKG]; I70.1 Atherosclerosis of renal artery; J43.8 Other emphysema; E11.9 Type 2 diabetes mellitus without complications; Z87.891 Personal history of nicotine dependence; Z79.82 Long term (current) use of aspirin; Z79.01 Long term (current) use of anticoagulants; Z79.899 Other long term (current) drug therapy ==

== ENCOUNTER → 2020-09-26 | Outpatient (CLI) | payer OTHER ==
--- NOTE | 2020-09-26 13:30 | HPC ---
[facility] [address] [place] [address] PAIN MANAGEMENT CONSULTATION Name: ESTEBAN ORO Room #: REG LAWRENCE Jacob#: [id number] Admission: 09/26/20 Attend Phys: Savita Dominique Discharge: Date of : 37 Report #: [id number] THIS REPORT FOR: cc: Titi Bobo MD, Neal A. MD Hocker,Savita ERVIN ~ DATE OF SERVICE: 09/26/2020 This is a telemedicine appointment that the patient has consented from 9:35 to 9:50 due to the COVID outbreak and her being very compromised and recovering from COVID herself. HISTORY OF PRESENT ILLNESS: This is a very pleasant 85-year-old female who has been a longstanding patient in the pain clinic for her chronic ongoing back pain. She has a history of spinal stenosis in her lumbar back and also has peripheral neuropathy and lymphedema in her lower extremities. Today, she is complaining of pain score of 5-7/10, mostly located in her left lower back. She reports that she has no open leg wounds. Currently today, she feels that the lymphedema has been well managed recently. She does wrap her legs every day and finds this beneficial. She does report that she is slowly recovering from her COVID virus that she had in June along with the rest of her family. She has been staying safe at home, but has recently had bronchitis that she is taking an antibiotic for. The patient does state that she has some constipation issues and takes MiraLax on a daily basis. She occasionally will take that at bedtime if she has problems and she also reports no falls since our last visit. ALLERGIES: MORPHINE, CODEINE, DOXYCYCLINE, ADHESIVE TAPE, CITALOPRAM AND TIZANIDINE. CURRENT LIST OF MEDICATIONS: Torsemide, vitamin B12, Perforomist nebulizer, amlodipine, losartan, MiraLax, Protonix, Bystolic, Aricept, Coumadin, Pulmicort, insulin, Humalog and Lantus, methadone 10 mg of very dose, vitamin D3, atorvastatin, prednisone, zinc, oxycodone 10/325, Cymbalta, baclofen p.r.n., carbamazepine. PQRS: 1. She has osteoarthritis and spinal stenosis of her lumbar spine. Denies any rheumatoid arthritis. 2. Height, weight and vital signs are deferred due to a Telemed appointment. Her pain score is 5/10. She is on Coumadin as well as medications for hypertension. 3. Functional assessment is 49/70. Her risk assessment is low. 4. Recreational drug use, she denies. She does not use alcohol and [place] [address] PAIN MANAGEMENT CONSULTATION Name: PREETHIESTEBAN Alvin Room #: REG LAWRENCE Jacob#: [id number] Admission: 09/26/20 Attend Phys: Savita Dominique Discharge: Date of : 37 Report #: [id number] According to the prescription monitoring system, the patient is filling appropriately and due to fill her medications this week. Her morphine mEq is 125. She is closely monitored every 2 months. PHYSICAL EXAMINATION: This is a review of systems. She is alert and orientated, answering my questions appropriately. Her family is assisting with some of the medication questions. Reporting pain in the left lower region of her back that is tender to the touch. Denies significant edema. States her legs are wrapped for her lymphedema. She is wearing oxygen at all times per nasal cannula. She has a nonproductive cough per her report. IMPRESSION: 1. Lumbar radiculopathy with a history of spinal stenosis at the L5-S1 dermatomal distribution. 2. Peripheral neuropathy. 3. Osteoarthritis affecting multiple joints. 4. Management of pain, utilizing opioid medications. 5. Chronic back pain. 6. Degenerative joint disease. 7. Memory issues, on Aricept. 8. Recent COVID diagnosis. Currently being treated for bronchitis. PLAN: 1. We discussed treatment options and will continue her on her methadone, which she finds very beneficial, taking 10 mg in the morning, 15 mg midday and 10 mg at night. 2. We will continue her on her Percocet 10/325, #120 for today and 4-week release as well and her Tegretol 200 mg b.i.d., #60 with one additional refill. 3. The patient is not in need of her baclofen that she does find helpful with muscle spasms and takes it mostly at that time. 4. We encouraged her to talk about the COVID vaccine with her propellant assembler, which she states she had by Dr. Bauer is leery to have the vaccine currently due to her comorbidities. She has recovered slowly from the actual virus in June, but continues to have some respiratory issues. The patient will notify us when she does have the vaccine. 5. The patient is seen to discuss today for this telemedicine visit with the collaboration with Dr. Longoria. We will schedule another Telemed in 2 months for this patient. <ELECTRONICALLY SIGNED> By: Savita Dominique 09/26/20 1330 [id number] Savita Dominique /nt
== END ==
LOC: TELEPC 06:46
PROVIDERS: ATTEND Clinical Nurse Specialist Adult Health
DX: G62.9 Polyneuropathy, unspecified (principal); M54.12 Radiculopathy, cervical region; M19.90 Unspecified osteoarthritis, unspecified site; G89.29 Other chronic pain; F11.20 Opioid dependence, uncomplicated; U07.1 COVID-19; Z88.8 Allergy status to other drugs, medicaments and biological substances; Z79.899 Other long term (current) drug therapy

== ENCOUNTER → 2020-11-21 | Outpatient (CLI) | payer OTHER ==
--- NOTE | 2020-11-22 07:50 | HPC ---
[facility] [place] [address] [address] [place] [address] PAIN MANAGEMENT CONSULTATION Name: ESTEBAN ORO Alvin Room #: REG [facility] Nidia#: [id number] Admission: 11/21/20 Attend Phys: Savita Dominique Discharge: Date of : 37 Report #: [id number] THIS REPORT FOR: cc: Titi Bobo MD, Neal A. MD Hocker,Savita ERVIN ~ DATE OF SERVICE: 11/21/2020 This is a telemedicine appointment. The patient has consented on speaking with her from 13:35-13:50. The patient is very compromised, recovering from COVID herself at home, on oxygen therapy. She is with her daughter on this telemed appointment. HISTORY OF PRESENT ILLNESS: This is a pleasant 85-year-old female, I am speaking with via the telephone. She is reporting a pain score slightly higher than her average at 6-7 today. She does report that the weather change recently made her pain quite intense. She reports she is still trying to recover from that cold spell. During that time, she was requiring 4 tablets of her oxycodone every day, occasionally she does require 3 tablets of her breakthrough pain medicine. She continues her methadone tablets and finds these beneficial. Today, she is reporting most significant pain in her low back, though she does have issues in her lower extremities as well. She is considering an epidural steroid injection by Dr. Longoria when she is able to come into the clinic. Patient denies any constipation as long as she takes MiraLax on a daily basis, which she has started on since our last visit with her in September. The patient utilizes Voltaren gel on her shoulders and knees. Patient has reported to us that Dr. Bauer told her to hold off on the COVID vaccine until he has it in his possession in his office and then he will administer her vaccine to her because she does have significant breathing issues. ALLERGIES: MORPHINE, CODEINE, DOXYCYCLINE, ADHESIVE TAPE,and TIZANIDINE. CURRENT LIST OF MEDICATIONS: Torsemide, vitamin B, Perforomist nebulizer, amlodipine, losartan, MiraLax, Protonix, Bystolic, Aricept, Coumadin, Pulmicort, insulin of Humalog and Lantus, methadone, vitamin D, atorvastatin, oxycodone 10/325, prednisone, zinc, baclofen. PQRS: 1. She has osteoarthritis in her spine and knees. Denies any rheumatoid arthritis. 2. Height, weight and vital signs are deferred due to a telemed appointment. Pain score is 6-7. The patient is on Coumadin as well as medications for hypertension. Functional assessment is 49/70. Risk assessment is low. 3. Recreational drug use, she denies. She does not drink [place] [address] PAIN MANAGEMENT CONSULTATION Name: ESTEBAN ORO Alvin Room #: REG CLLeisa Jacob#: [id number] Admission: 11/21/20 Attend Phys: Savita Dominique Discharge: Date of : 37 Report #: [id number] former smoker. According to the prescription monitoring system, the patient is filling appropriately. She is due to fill her medications. Morphine milliequivalent is 125 MMEs. Physical exam is a review of systems. She is alert and oriented, answering my questions appropriately. Her family is assisting with some clarification on things. The patient rates her pain score as 6-7, most significantly in her lower back and tenderness in her bilateral knees and shoulders. She reports that the lymphedema in her lower legs has slightly improved. She is wearing oxygen at 2 L per nasal cannula. Shortness of breath noted with excessive talking. IMPRESSION: 1. Lumbar radiculopathy, has spinal stenosis at the L5-S1 dermatomal distribution. 2. Peripheral neuropathy. 3. Osteoarthritis affecting multiple joints. 4. Complicated medical management utilizing scheduled opioids under agreement. 5. Chronic back pain. 6. Degenerative joint disease. 7. Memory issues, on Aricept. 8. COVID diagnosis, currently on supplemental oxygen. We reviewed the fact that opiate medications are being used to provide analgesia adequate to support activities of daily living, not attempting to achieve a specific pain score on the 0-10 Visual Analog Scale. The current opiate medications are providing sufficient analgesia to allow the patient to participate in activities of daily living. The patient is not exhibiting any aberrant behavior suggestive of drug diversion. The patient is not having any adverse reactions to medications. The patient is not suffering from daytime somnolence or mental acuity changes. The patient is managing opiate-induced constipation with appropriate [id number] agents and dietary considerations. The patient was counseled on concern for caution with operating a motor vehicle while using opiate medications. PLAN: 1. We discussed treatment options with the patient today. The patient finds her methadone as well as her oxycodone beneficial in relieving a significant portion of her pain, though at times she does have significant flares related to cold and movement. We will continue her on her methadone, #75 tablets as well as oxycodone 10/325, #120 tablets. These will be sent electronically by Dr. Longoria to fill today and again in 4 weeks. 2. She will continue on her Tegretol. We will send that electronically, #60 with 5 additional refills. The patient is not needing her baclofen refill [place] [id number] PAIN MANAGEMENT CONSULTATION Name: ESTEBAN ORO Room #: [facility].#: [id number] Admission: 11/21/20 Attend Phys: Savita Dominique Discharge: Date of : 37 Report #: [id number] today. 3. We did discuss in depth the need for the patient to have a lumbar epidural steroid injection by Dr. Longoria. She has had these in the past and afforded her much relief. The patient is on Coumadin. She will need to able to be off that medication for at least 5 days prior to an epidural. We also discussed the timing of her epidural and COVID vaccine explaining to her there must be 2 weeks these 2 injections. The daughter did write down this information to consider when scheduling appointment in December. 4. Time spent on the phone with the patient in consultation and telemed appointment at least 15 minutes, prior to the appointment reviewing her chart and any pertinent medical documentation including physician notes and imaging. Time also spent reviewing prescription monitoring system, side effects of medications, scripts and COVID vaccine. Scripts sent electronically and then the documentation of at least 15 minutes. Total time 30 minutes. <ELECTRONICALLY SIGNED> By: Savita Dominique 11/22/20 0750 [id number] [id number] Savita Dominique /nt
== END ==
LOC: TELEPC 06:49 → PAIN 06:49
PROVIDERS: ATTEND Clinical Nurse Specialist Adult Health
DX: M54.16 Radiculopathy, lumbar region (principal); G62.9 Polyneuropathy, unspecified; M48.07 Spinal stenosis, lumbosacral region; M19.90 Unspecified osteoarthritis, unspecified site; U07.1 COVID-19; F11.20 Opioid dependence, uncomplicated; R41.3 Other amnesia; Z88.8 Allergy status to other drugs, medicaments and biological substances; Z79.899 Other long term (current) drug therapy

== ENCOUNTER → 2020-12-21 | Outpatient (CLI) | payer OTHER | LOC: SJCVC 13:02 | PROVIDERS: ATTEND Internal Medicine Cardiovascular Disease | DX: I25.10 Atherosclerotic heart disease of native coronary artery without angina pectoris (principal); I10 Essential (primary) hypertension; I73.9 Peripheral vascular disease, unspecified; I70.1 Atherosclerosis of renal artery; E78.00 Pure hypercholesterolemia, unspecified; I87.2 Venous insufficiency (chronic) (peripheral); E11.9 Type 2 diabetes mellitus without complications; J43.9 Emphysema, unspecified; Z86.718 Personal history of other venous thrombosis and embolism; D68.59 Other primary thrombophilia; E78.1 Pure hyperglyceridemia; R06.02 Shortness of breath; G47.33 Obstructive sleep apnea (adult) (pediatric); Z87.891 Personal history of nicotine dependence; Z95.1 Presence of aortocoronary bypass graft; Z79.899 Other long term (current) drug therapy; Z79.4 Long term (current) use of insulin; Z88.5 Allergy status to narcotic agent; Z88.8 Allergy status to other drugs, medicaments and biological substances ==

== ENCOUNTER 2021-01-07 12:18 | Inpatient (IN) | payer OTHER ==
[~2021-01-07] VITALS: Ht 170.2 cm; Wt 112.5 kg
[2021-01-07 13:11] VITALS: BP 147/59
[2021-01-07 14:22] LABS: ABSOLUTE NEUTROPHILS 9.2 thou/uL (1.4-8.2); BASOPHILS 0.4 % (0.0-2.0); EOSINOPHILS 1.6 % (0.0-3.0); HEMATOCRIT 25.9 % (37.0-47.0); HEMOGLOBIN 8.3 gm/dL (12.0-15.0); LYMPHOCYTES 5.2 % (24.0-44.0); MCH 28.1 pg (26.0-34.0); MCHC 32.1 g/dL (28.0-37.0); MCV 87.8 fL (80.0-100.0); MONOCYTES 6.4 % (1.0-8.0); PLATELET COUNT 249 thou/uL (150-400); POLYS 86.4 % (36.0-66.0); RBC 2.95 mil/uL (4.20-5.00); RDW 17.3 % (10.5-14.5); WBC 10.7 thou/uL (4.0-11.0)
[2021-01-07 14:37] LABS: APTT 25.6 Seconds (24.5-32.8); INR 0.98; PROTIME 10.7 Seconds (9.3-11.4)
[2021-01-07 14:44] LABS: URINE BILIRUBIN NEGATIVE (Negative); URINE BLOOD NEGATIVE (Negative); URINE CLARITY CLEAR; URINE COLOR YELLOW; URINE GLUCOSE-RANDOM* NEGATIVE (Negative); URINE KETONES NEGATIVE (Negative); URINE NITRITE-REFLEX NEGATIVE (Negative); URINE PROTEIN (DIPSTICK) 1+ (Negative); URINE UROBILINOGEN 0.2 E.U./dl (0.2-1.0)
[2021-01-07 14:45] LABS: URINE LEUKOCYTES-REFLEX 1+ (Negative)
[2021-01-07 14:52] LABS: BACTERIA-REFLEX 1-9 Few /HPF (None Seen); CASTS None Seen /LPF (None Seen); SQUAMOUS 0-3 Few /LPF (0-3); URINE RBC None Seen /HPF (0-2); URINE WBC-REFLEX 0-5 Rare /HPF (0-5)
[2021-01-07 14:53] LABS: CRYSTALS None Seen /LPF (None Seen)
[2021-01-07 16:05] LABS: CALCIUM 8.5 mg/dL (8.5-10.1); CREATININE 4.2 mg/dL (0.6-1.0); POTASSIUM 5.5 mmol/L (3.5-5.1)
[2021-01-07 16:10] LABS: ALBUMIN 2.5 g/dL (3.4-5.0); TOTAL BILIRUBIN 0.3 mg/dL (0.2-1.0); TOTAL PROTEIN 6.3 g/dL (6.4-8.2)
[2021-01-07 17:26] VITALS: BP 124/51
[2021-01-07 18:14] VITALS: BP 123/83
[2021-01-08 04:10] VITALS: BP 141/67
--- NOTE | 2021-01-08 04:59 | NUR ---
ADMISSION COMPLETED. CARE PLAN, INTERVENTIONS, AND MED REC DONE. PT WAS PLACED IN RESTRAINTS ON ADMISSION TO HOSTILE ACTIONS TOWARDS STAFF. PT IS VERY CONFUSED AND STILL ARGUING ABOUT TIME/PLACE. PT REFUSED TO DRINK PATIROMER CALCIUM. TRIED MULTIPLE ATTEMPTS AND PERSUASION, BUT TO NO AVAIL.
[2021-01-08 06:25] LABS: HEMATOCRIT 28.3 % (37.0-47.0); HEMOGLOBIN 9.1 gm/dL (12.0-15.0); MCH 28.1 pg (26.0-34.0); MCHC 32.2 g/dL (28.0-37.0); RBC 3.25 mil/uL (4.20-5.00); RDW 17.4 % (10.5-14.5); WBC 11.4 thou/uL (4.0-11.0)
[2021-01-08 07:16] LABS: CALCIUM 9.3 mg/dL (8.5-10.1); CREATININE 3.7 mg/dL (0.6-1.0)
[2021-01-08 07:17] LABS: POTASSIUM 4.3 mmol/L (3.5-5.1)
[2021-01-08 08:21] VITALS: BP 190/90
--- NOTE | 2021-01-08 09:30 | EKG ---
[address] [facility] [place] [address] ELECTROCARDIOGRAM REPORT Name: ESTEBAN ORO Room #: 351-P ADM IN M.R.#: [id number] Admission: 01/07/21 Attend Phys: Titi Bobo MD Discharge: Date of : 37 Report #: [id number] [facility] ED Test Date: 2021-01-07 Test Time: 13:17:02 Pat Name: ESTEBAN ORO Department: Room: [facility] Gender: F Dosier Operator: GREY : 1935 Requested By: Kristine Murrieta Order Number: [id number] MD: Oc Holloway Measurements Intervals [place] Rate: 68 P: -9 NV: 149 QRS: 15 QRSD: 99 T: 55 QT: 403 QTc: 429 Interpretive Statements Sinus arrhythmia Poor R wave progression Baseline wander in lead(s) I,II,aVR Compared to ECG 04/10/2019 11:39:23 T wave abnormality is less pronounced Electronically Signed On 01-08-2021 9:29:51 CDT by Oc Holloway [email or web address] <ELECTRONICALLY SIGNED> By: Oc Holloway MD, [facility] 01/08/21 0929 1317 1317 Oc Holloway MD, [facility] /EPI
--- NOTE | 2021-01-08 13:52 | NUR ---
INITIAL ASSESSMENT: SW reviewed chart and spoke with nursing and attending physician. Pt was sent to the ER from her PCP's office due to AMS. Pt was placed in restraints over night due to agitation. Restraints removed this morning. SW met with pt and two family members at bedside. Introduced role of SW. Pt is alert/orientated. Pt reports she lives at home with her two daughters. Pt has a cane and walker at home. There is a ramp into the home. Pt is on service with [facility] for home O2/nebulizer. Pt has used [facility] in the past. Pt's PCP is Dr. Bobo. Pt and family's goal is to return home when medically stable. Pt is agreeable with referral to [facility] if needed at time of discharge. SW is following to assist as needed with discharge planning.
--- NOTE | 2021-01-08 13:56 | NUR ---
LYDIA reviewed chart and spoke with nursing and attending physician. Pt remains in Enhanced Isolation due to COVID. LYDIA contacted Katherine in admissions at [facility] who states that pt must be in isolation for 14 days post first positive COVID test prior to admitting to their facility. LYDIA left voice message for pt's , Kelli, to provide update. LYDIA is following to assist as needed with discharge planning.
[2021-01-08 15:31] VITALS: BP 187/85
[2021-01-08 19:57] VITALS: BP 189/77
[2021-01-09 04:03] VITALS: BP 183/93
[2021-01-09 06:31] LABS: ALBUMIN 2.6 g/dL (3.4-5.0); CALCIUM 8.9 mg/dL (8.5-10.1); CREATININE 2.8 mg/dL (0.6-1.0); PHOSPHORUS 4.3 mg/dL (2.5-4.9); POTASSIUM 4.3 mmol/L (3.5-5.1)
--- NOTE | 2021-01-09 06:34 | NUR ---
[facility] OVERNIGHT, PT STILL CONFUSED AND HAVING HALLUCINATIONS ABOUT SEEING PPL. PT ALSO REFUSING MEDICATIONS AGAIN LAST NIGHT. SPOKE TO DAUGHTER ABOUT IT WHEN SHE CALLED. CHOUDHURY IN PLACE.
[2021-01-09 07:59] VITALS: BP 207/90
[2021-01-09 09:06] LABS: % SATURATION 18 % (20-39); IRON 46 ug/dL (50-170); TIBC 262 ug/dL (250-450)
[2021-01-09 11:14] VITALS: BP 175/77
--- NOTE | 2021-01-09 15:19 | NUR ---
FAXED REFERRAL TO [facility] SPOKE WITH JOSE IN INTAKE SHE RECEIVED REFERRAL AND WILL ACCEPT.
[2021-01-09 15:20] VITALS: BP 175/77
[2021-01-09 15:28] VITALS: BP 191/83
--- NOTE | 2021-01-09 15:29 | NUR ---
major called [facility]i asking if they should run insur auth. cm contact pt dtr to confirm snf choice. per farrah and shan hong (at bedside) the family does not want snf. per shan, pt lives with her dil who is a retired hospice nurse and they have a nurse stay overnight w/pt 3x/wk.
--- NOTE | 2021-01-09 16:56 | NUR ---
NOTIFIED [facility] TO DISREGARD REFERRAL PT FAMILY IS WANTING HH.
[2021-01-09 19:36] VITALS: BP 180/76
--- NOTE | 2021-01-09 19:46 | NUR ---
RN ASSUMED PT'S CARE AT 0700AM, PT IS A&OX2 ( PERSON AND PLACE ), PT CAN FOLLOW COMMANDS, PT IS CONTINUING IV ABX, PT HAS NEW MEDICATIONS FOR HIGT BP, ST HAS SEEING PT , PT IS TOLERATIVE PUREED DIET , PT IS ON O2 2-3L/MIN/NC, PT DENIES SOB AND PAIN AT DAY SHIFT.
[2021-01-10 03:49] VITALS: BP 196/87
[2021-01-10 06:14] LABS: ALBUMIN 2.7 g/dL (3.4-5.0); CREATININE 2.3 mg/dL (0.6-1.0); PHOSPHORUS 3.5 mg/dL (2.5-4.9)
--- NOTE | 2021-01-10 06:14 | NUR ---
PT MENTATION IMPROVING AND SHE IS NOW TAKING ALL HER EVENING MEDICATION. SHE IS PLEASANT AND SAYS THANK YOU. 3L NASAL CANNULA WHEN OFF CPAP. BP ELEVATED THIS AM. HOURLY ROUNDING.
[2021-01-10 07:28] VITALS: BP 147/98
[2021-01-10 11:22] VITALS: BP 153/77
--- NOTE | 2021-01-10 14:24 | NUR ---
SW reviewed chart and spoke with nursing. Pt is progressing towards goals for discharge. Pt is on 3L of O2 and IV abx. Plan is for pt to discharge home with [facility] when medically stable. LYDIA is following to assist as needed with discharge planning.
[2021-01-10 15:26] VITALS: BP 150/86
--- NOTE | 2021-01-10 17:48 | NUR ---
ASSUMED PATIENT CARE AT 0700. A/O X3. MORE ALERT. TOLERATED DIET. ASSISTED UP TO CHAIR. BLE 2+ EDEMA. SON WITH EXERTION. SLOWLY TOWARDS POC GOLAS.
[2021-01-10 19:22] VITALS: BP 177/83
[2021-01-11 03:33] VITALS: BP 182/81
[2021-01-11 04:08] LABS: HEMATOCRIT 25.6 % (37.0-47.0); HEMOGLOBIN 8.3 gm/dL (12.0-15.0); MCH 28.2 pg (26.0-34.0); MCHC 32.4 g/dL (28.0-37.0); MCV 87.1 fL (80.0-100.0); RBC 2.93 mil/uL (4.20-5.00); RDW 16.3 % (10.5-14.5); WBC 10.5 thou/uL (4.0-11.0)
--- NOTE | 2021-01-11 04:16 | NUR ---
PROGRESS PT ALERT TO SELF AND FAMILY SOMETIMES STAFF. RE-ORIENTED FREQUENTLY. ON 3 LITERS AND CPAP AT HS. UP WITH MAX ASSIST. CHOUDHURY INTACT.TOLERATING THIN LIQUIDS AND MECHANICAL CHOPPED DIET CONTINUE POC.
[2021-01-11 04:42] LABS: CALCIUM 9.2 mg/dL (8.5-10.1); POTASSIUM 4.2 mmol/L (3.5-5.1)
[2021-01-11] MEDS ORDERED: BYSTOLIC20 MG PO (05:51)
[2021-01-11] MEDS ORDERED: SINGULAIR 10 MG10 M1 PO (05:53)
[2021-01-11 07:25] VITALS: BP 153/66
[2021-01-11 08:59] VITALS: BP 153/66
--- NOTE | 2021-01-11 14:52 | NUR ---
DISCHARGE NOTE: LYDIA reviewed chart and spoke with nursing. Pt is medically stable for discharge home today with HH. LYDIA met with pt at bedside to discuss discharge plan. Pt is aware and agreeable and requests SW contact her dtr, Imani, to coordinate the discharge. LYDIA spoke with Imani via phone to notify of discharge orders. Imani states that her sister, Sherry, will be picking pt up and will bring portable O2. Imani requests ST to be ordered for HH. LYDIA faxed finalized discharge orders/summary to [facility] and spoke with Maye in intake to confirm that info was received. Start of care is planned for Thursday. Contact info for [facility] placed in pt's discharge summary. No additional SW needs identified at this time, but is available to assist should needs arise.
== END 2021-01-11 12:05 | disposition home health service (06) | DRG 682 ==
LOC: ER 12:18 → 3W 16:47 → EROBS 16:47 → 3W 18:40
PROVIDERS: Internal Medicine Nephrology; Nurse Practitioner Family; ADMIT Family Medicine; ATTEND Family Medicine
PROC: 5A09357 Assistance with Respiratory Ventilation, Less than 24 Consecutive Hours, Continuous Positive Airway Pressure (ICD-10-PCS; principal; 2021-01-07)
PROC: 5A09357 Assistance with Respiratory Ventilation, Less than 24 Consecutive Hours, Continuous Positive Airway Pressure (ICD-10-PCS; 2021-01-08)
PROC: 5A09357 Assistance with Respiratory Ventilation, Less than 24 Consecutive Hours, Continuous Positive Airway Pressure (ICD-10-PCS; 2021-01-09)
PROC: 5A09357 Assistance with Respiratory Ventilation, Less than 24 Consecutive Hours, Continuous Positive Airway Pressure (ICD-10-PCS; 2021-01-10)
DX: N17.0 Acute kidney failure with tubular necrosis (principal); G93.41 Metabolic encephalopathy; J96.01 Acute respiratory failure with hypoxia; I13.0 Hypertensive heart and chronic kidney disease with heart failure and stage 1 through stage 4 chronic kidney disease, or unspecified chronic kidney disease; I50.32 Chronic diastolic (congestive) heart failure; L03.116 Cellulitis of left lower limb; N39.0 Urinary tract infection, site not specified; N18.4 Chronic kidney disease, stage 4 (severe); I25.10 Atherosclerotic heart disease of native coronary artery without angina pectoris; E78.00 Pure hypercholesterolemia, unspecified; M19.90 Unspecified osteoarthritis, unspecified site; K21.9 Gastro-esophageal reflux disease without esophagitis; G89.29 Other chronic pain; M54.9 Dorsalgia, unspecified; Z96.652 Presence of left artificial knee joint; E87.5 Hyperkalemia; G47.33 Obstructive sleep apnea (adult) (pediatric); E11.51 Type 2 diabetes mellitus with diabetic peripheral angiopathy without gangrene; E11.43 Type 2 diabetes mellitus with diabetic autonomic (poly)neuropathy; K31.84 Gastroparesis; E11.22 Type 2 diabetes mellitus with diabetic chronic kidney disease; J43.9 Emphysema, unspecified; I27.20 Pulmonary hypertension, unspecified; I70.1 Atherosclerosis of renal artery; D63.8 Anemia in other chronic diseases classified elsewhere; I16.0 Hypertensive urgency; R53.81 Other malaise; E66.01 Morbid (severe) obesity due to excess calories; Z68.38 Body mass index [BMI] 38.0-38.9, adult; I25.2 Old myocardial infarction; Z87.891 Personal history of nicotine dependence; Z99.81 Dependence on supplemental oxygen; Z90.710 Acquired absence of both cervix and uterus; Z98.41 Cataract extraction status, right eye; Z95.1 Presence of aortocoronary bypass graft; Z79.4 Long term (current) use of insulin; Z87.442 Personal history of urinary calculi; Z86.711 Personal history of pulmonary embolism; Z98.42 Cataract extraction status, left eye; Z86.718 Personal history of other venous thrombosis and embolism; Z95.5 Presence of coronary angioplasty implant and graft; Z88.6 Allergy status to analgesic agent; Z88.8 Allergy status to other drugs, medicaments and biological substances
CPT/HCPCS: 10879

== ENCOUNTER → 2021-03-13 | Outpatient (CLI) | payer OTHER ==
[~2021-03-13] VITALS: Ht 162.6 cm; Wt 106.3 kg
[~2021-03-13] MED LIST changes: +BYSTOLIC20 MG PO; +VOLTAREN ARTHRI20 GM TOP; +XARELTO20 MG PO
[2021-03-13 11:14] VITALS: BP 148/73
--- NOTE | 2021-03-13 11:34 | NUR ---
Pain Clinic Assessment: 1. History of Osteoarthritis: BACK History of Rheumatoid Arthritis: Not Applicable 2. Height: 5 ft. 4 in. 162.6 cm. Weight: 234.4 lb. oz. 106.323 kg. Patient's BMI: 40.2 3. Vital Signs: BP: 148/73 Pulse: 73 Resp: 14 Temp: 02 Sat: 99 ECG Mon: 4. Pain Intensity: 8-10 5. Fall Risk: Dizziness: N Needs help standing or walking: Y Fallen in the last 3 months: N Fall risk comments: WHEELCHAIR 6. Patient on Blood Thinner: XARELTO 7. History of Hypertension: Y 8. Opioid Therapy greater than 6 weeks: Y Opiate Contract Signed: 9. Risk Assessment Tool Provided: LOW RISK 1 10. Functional Assessment Tool: 49/70 11. Recreational Drug Use: Never Drug Type: Tobacco Use: Former Smoker Tobacco Type: Amount or Packs/day: How Many Years: Alcohol Use: No Frequency: Quant:
--- NOTE | 2021-03-14 08:33 | HPC ---
[facility] [address] [place] [address] PAIN MANAGEMENT CONSULTATION Name: ESTEBAN ORO [facility] #: [facility] [id number] Admission: 03/13/21 Attend Phys: Savita Dominique Discharge: Date of : 39 Report #: [id number] THIS REPORT FOR: cc: Titi Bobo MD, Neal A. MD Hocker, Amanda CNS ~ DOC #: [id number] Savita Dominique NP DATE OF SERVICE: 03/13/2021 CHIEF COMPLAINT: Low back pain, spinal stenosis. HISTORY OF PRESENT ILLNESS: This is an 86-year-old female who returns to the pain clinic today with her family to help answer some questions as she does have some dementia issues. Today, the patient is able to answer the majority of my questions, though herself. Today, rating her pain at 8/10, mostly located on her low back radiating into her left hip down her left leg. She also has some ongoing left shoulder discomfort. The patient reports to me today that her pain is a sharp, aching, burning, numbness sensation that is worse when she does any activity and especially in the morning when she gets out of bed. She believes her medication, though have been beneficial despite her high pain score, she states lying down as well as alternating heat and ice have been beneficial as well. Today, she does tell me she uses Voltaren gel to her shoulder several times a day and that is beneficial as well as her opioid medications. The sister reports that she is going to start iron infusions on Thursday. Her creatinine has decreased slightly, but they are continuing to monitor this. They are hopeful with some iron infusions twice a month. This may be beneficial in helping her kidneys per the daughter's report. ALLERGIES: MORPHINE, CODEINE, DOXYCYCLINE, ADHESIVE TAPES, ____, TIZANIDINE, LEVOTHYROXINE. CURRENT LIST OF MEDICATIONS: Voltaren gel p.r.n., oxycodone 10/325 q.i.d. p.r.n., methadone, Tegretol, baclofen, Xarelto, Bystolic, Singulair, Humalog, lisinopril, Levemir, Perforomist, Pulmicort, vitamin B12, Aricept, zinc, prednisone, Protonix, MiraLax, Norvasc, Cymbalta, Lipitor, and vitamin D. PQRS: 1. She has osteoarthritis in her back and numerous joints. Denies any rheumatoid arthritis. 2. Height is 5 feet 4 inches, weight is 234, BMI is 40. 3. Vital signs; blood pressure 148/73, pulse is 73, respirations 14, oxygen sat is 99% on 4 liters nasal cannula oxygen. 4. Pain score is 8/10. 5. Denies dizziness. Does need assistance with walking. She is in a wheelchair today, has not fallen in the last [address] [address] PAIN MANAGEMENT CONSULTATION Name: DONNACINDYESTEBAN A Room #: REG [facility] Jacob#: [id number] Admission: 03/13/21 Attend Phys: Savita Dominique Discharge: Date of : 39 Report #: [id number] 6. The patient is on Xarelto as well as medications for hypertension. 7. Opioid therapy is greater than 6 weeks; therefore, an opioid signed contract is on the chart. 8. Risk assessment is low. Functional assessment is 49/70. 9. Recreational drug use, she denies. She is a former smoker and does not drink alcohol. According to the prescription monitoring system. The patient is filling appropriately in a timely fashion. She is due to fill her methadone today. Her morphine mEq is greater than 120 according to the PDMP. She is monitored closely for her medications and her family does disperse these medicines. PHYSICAL EXAMINATION: GENERAL: This is a well-developed, well-nourished white female who is alert and oriented x 2. She does have some memory issues, though quite alert today. Her pain score is an 8/10. She is here with her daughter who is a nurse. HEENT: Normocephalic and atraumatic. Extraocular eye muscles are intact. She closes her left eye often, but is able to see. She is wearing a mask. NECK: Without adenopathy or JVD. MUSCULOSKELETAL: The patient has discomfort in the lower portion of her spine that radiates down her legs following the L4-L5, L5-S1 dermatomal distribution. Her lower extremities are deconditioned and is in a wheelchair today, has tenderness in her left shoulder, but is able to move it in all planes. She has lymphedema stockings on her lower extremities bilaterally with 2+ edema noted. IMPRESSION: 1. Lumbar radiculopathy with a history of spinal stenosis of the L5-S1 dermatomal distribution. 2. Peripheral neuropathy. 3. Osteoarthritis. 4. Management of medications utilizing opioid medications. 5. Chronic back pain. 6. Degenerative joint disease. 7. Altered mental status on Aricept. 8. Chronic respiratory failure with hypoxia, on supplemental oxygen. 9. Congestive heart failure. PLAN: 1. We discussed treatment options with the patient today. The patient does continue on her methadone 10 mg in the morning, 5 midday, 10 at night as well as supplementing her pain with Percocet 10/325 throughout the day. Her family does administer these medications due to her memory issues and they believe that is beneficial in keeping her as active as possible at home and would like to continue these medications. Scripts will be sent for 2 months of these medications by Dr. Longoria. 2. The patient is to start iron infusions later this week. We are hopeful that [facility] [address] [place] [address] PAIN MANAGEMENT CONSULTATION Name: FELICITAAYDINCINDYESTEBAN A Room #: REG CL Nidia#: [id number] Admission: 03/13/21 Attend Phys: Savita Dominique Discharge: Date of : 37 Report #: [id number] this will increase some of her energy. The patient does report to me that she does not sleep well at night and sleeps often during the day for several hours at a time until her back pain that wakes her up. 3. The patient is down 8 pounds since her last visit with us. The family believes that has to do with her decrease in her edema due to her lymphedema wraps. Time spent with the patient in consultation, reviewing pertinent imaging and studies, clinical notes and physician reports, physical examination and correlation of physical findings and medical documentation to determine possible treatment options 12 minutes. Time spent and preparation for appointment reviewing prescription monitoring system reports, reviewing previous records and proposed treatment options and reviewing current medications 5 minutes. Time spent preparing and sending electronic prescriptions and documentation of visit and plan of treatment with collaborating physician, Dr. Longoria. Total time spent 22 minutes. DANIKA Fernandez/SONJA <ELECTRONICALLY SIGNED> By: Savita Dominique 03/14/21 [id number] [id number] Savita Dominique /nt
== END ==
LOC: PAIN 07:09
PROVIDERS: ATTEND Clinical Nurse Specialist Adult Health
DX: M47.27 Other spondylosis with radiculopathy, lumbosacral region (principal); M48.07 Spinal stenosis, lumbosacral region; G62.9 Polyneuropathy, unspecified; G89.29 Other chronic pain; J96.11 Chronic respiratory failure with hypoxia; I11.0 Hypertensive heart disease with heart failure; I50.9 Heart failure, unspecified; Z79.891 Long term (current) use of opiate analgesic; Z99.81 Dependence on supplemental oxygen; Z79.899 Other long term (current) drug therapy

== ENCOUNTER 2021-03-31 19:42 | Inpatient (IN) | payer OTHER ==
[~2021-03-31] VITALS: Ht 167.6 cm; Wt 106.6 kg
[~2021-03-31 19:42] MED LIST changes: +AUGMENTIN 875-1 EACH PO; +AZITHROMYCIN250 MG PO; -PULMICORT0.25 MG/2; +PULMICORT0.25 MG/2 INH
[2021-03-31 19:43] VITALS: BP 142/92
[2021-03-31 21:52] LABS: ABSOLUTE NEUTROPHILS 12.3 thou/uL (1.4-8.2); BASOPHILS 0.3 % (0.0-2.0); EOSINOPHILS 0.8 % (0.0-3.0); HEMATOCRIT 30.4 % (37.0-47.0); HEMOGLOBIN 9.7 gm/dL (12.0-15.0); MCH 29.2 pg (26.0-34.0); MCHC 31.8 g/dL (28.0-37.0); MCV 91.9 fL (80.0-100.0); MONOCYTES 6.3 % (1.0-8.0); PLATELET COUNT 208 thou/uL (150-400); POLYS 86.6 % (36.0-66.0); RBC 3.31 mil/uL (4.20-5.00); RDW 20.5 % (10.5-14.5); WBC 14.2 thou/uL (4.0-11.0)
[2021-03-31 22:18] LABS: URINE BILIRUBIN NEGATIVE (Negative); URINE BLOOD 2+ (Negative); URINE CLARITY CLEAR; URINE COLOR YELLOW; URINE GLUCOSE-RANDOM* TRACE (Negative); URINE KETONES NEGATIVE (Negative); URINE LEUKOCYTES-REFLEX NEGATIVE (Negative); URINE NITRITE-REFLEX NEGATIVE (Negative); URINE PROTEIN (DIPSTICK) 2+ (Negative); URINE SPECIFIC GRAVITY 1.025 (1.005-1.035); URINE UROBILINOGEN 0.2 E.U./dl (0.2-1.0)
[2021-03-31 22:22] LABS: CALCIUM 8.9 mg/dL (8.5-10.1); POTASSIUM 4.8 mmol/L (3.5-5.1)
[2021-03-31 22:28] LABS: ALBUMIN 3.2 g/dL (3.4-5.0); TOTAL BILIRUBIN 0.4 mg/dL (0.2-1.0); TOTAL PROTEIN 6.6 g/dL (6.4-8.2)
[2021-03-31 22:47] LABS: BACTERIA-REFLEX None Seen /HPF (None Seen); CRYSTALS None Seen /LPF (None Seen); HYALINE CASTS 0-3 Few /LPF (None Seen); MUCUS None Seen strn/LPF (None Seen); SQUAMOUS None Seen /LPF (0-3); URINE RBC 1-2 Rare /HPF (NONE SEEN); URINE WBC-REFLEX None Seen /HPF (0-5)
[2021-04-01] MEDS ORDERED: LOSARTAN POTAS100 MG PO (02:22)
[2021-04-01] MEDS ORDERED: MIRTAZAPINE15 M2 PO (02:24)
[2021-04-01] MEDS ORDERED: LEVOTHYROXINE75 MCG PO (02:29)
[2021-04-01] MEDS ORDERED: LEVEMIR FL100 UNIT/2 SUBQ (02:48)
--- NOTE | 2021-04-01 07:50 | EKG ---
[address] [place] [address] ELECTROCARDIOGRAM REPORT Name: DONNACINDYESTEBAN Esquivel Room #: [address] [place] [address]..#: [id number] Admission: 03/31/21 Attend Phys: Titi Bobo MD Discharge: Date of : 39 Report #: [id number] [facility] ED Test Date: 2021-03-31 Test Time: 20:34:05 Pat Name: ESTEBAN ORO Department: Room: 170 Gender: F Operations Developer: muna chong : 1935 Requested By: Neeraj Millard Order Number: [id number] MD: Mk Garcias Measurements Intervals [place] Rate: 67 P: 37 CA: 141 QRS: 36 QRSD: 102 T: 87 QT: 411 QTc: 434 Interpretive Statements NSR Probable left atrial enlargement LVH with secondary repolarization abnormality Artifact in lead(s) I,II,III,aVR,aVL,aVF,V1 Compared to ECG 03/30/2021 21:52:50 Sinus rhythm no longer present Electronically Signed On 04-01-2021 7:50:48 CDT by Mk Garcias [email or web address] <ELECTRONICALLY SIGNED> By: Mk Garcias MD, [facility] 04/01/21 0750 33 33 Mk Garcias MD, [facility] /EPI
[2021-04-01 11:33] VITALS: BP 130/76
[2021-04-01 11:48] VITALS: BP 191/87
[2021-04-01 15:50] VITALS: BP 136/64
--- NOTE | 2021-04-01 18:53 | NUR ---
Patient arrived to the unit via wheelchair bed. Daughter at bedside and was able to answer admission questions. Patient very sleepy hard to keep her eyes open. States shes in 6 right ankle from a fall. 3+ EDEMA LEFT leg. Nurse wrapped right ankle with Ronald wrap to pain per request. right forearm iv placed.
--- NOTE | 2021-04-01 19:17 | NUR ---
Patient came to unit 1730 via bed. A/O x 3. Room air. Right AC IV half way out of vein. Kari Iv team place a 20g left forearm. No pain noted at this time. Nurse went over admission paperwork and obtained signature.
[2021-04-01 20:04] VITALS: BP 157/79
--- NOTE | 2021-04-02 04:31 | NUR ---
Pt. has rested quietly at short intervals during the night when checked on during frequent rounds. She is oriented times two at times, but gets easily confused. C/o right ankle pain and scheduled methadone was given. Uses the bedpan. Bed alarm is on.
[2021-04-02 06:03] LABS: ALBUMIN 2.7 g/dL (3.4-5.0); CALCIUM 8.6 mg/dL (8.5-10.1); CREATININE 1.6 mg/dL (0.6-1.0); POTASSIUM 3.9 mmol/L (3.5-5.1); TOTAL BILIRUBIN 0.2 mg/dL (0.2-1.0); TOTAL PROTEIN 6.1 g/dL (6.4-8.2)
[2021-04-02 08:48] VITALS: BP 193/102
[2021-04-02 11:49] VITALS: BP 168/64
--- NOTE | 2021-04-02 13:02 | NUR ---
WOUND CARE F/U; CHART WAS REVIEWED. THE PATIENTS ANNA MARIE SCORE IS DECREASING TO 11 TODAY. I DICUSSED THIS WITH THE RN TODAY TO GET A COMPLETE CLINICAL PICTURE. THE RN STATES THE PATIENT GETS UP TO THE COMMODE A FEW TIMES A DAY WELL OTHER FACTORS. BASED ON THE RN'S OBJECTIVE ASSESMMENT NO LOW AIRLOSS PUMP IS NEEDED AT THIS TIME.
--- NOTE | 2021-04-02 13:35 | NUR ---
Patient is very sleepy today. She awakes with touch or sound. Daughter at bedside. NS infusing @ 100/hr via left forearm IV. IV flushes well, no redness noted, dressing intact. Patient had pain in her right ankle/foot. Tylenol given. Daughter came to the nurses station around 1130 stating that no one has been in her mothers room since 0800. Nurse and PCT both have been in her room at different times prior. Daughter was wanting her mothers pad checked for incontiance. PCT checked her and she was dry. PCT and Nurse have been doing rounds regularly. Every hour on the hour the daughter is wanting the pad checked, which daughter was told staff will get to her as soon as we are able. PCT has been doing a great job staying on top of this.
--- NOTE | 2021-04-02 15:37 | NUR ---
PT ADMITTED RELATED TO ENCEPHALOPATHY. CM REVIEWED CHART AND SPOKE WITH CARE TEAM. CM MET WITH PT AND DTR ABBY AT BEDSIDE THIS DAY. PT APPEARED TO A&0 X3. DTR INDICATED THAT PT RESIDES IN A HOUSE WITH 5 FAMILY MEMBERS. SHE INDICATED THERE IS A RAMP TO ENTER AND NO STEPS INSIDE. DTR INDICATED SHE HAD BEEN ABLE TO TRANSFER TO AND FROM [facility] [place] [facility]. DTR INDICATED THAT SHE HAD FALLEN AND INJURED HER ANKLE. FAMILY INDICATED THAT THEY HAVE A FWW, WC, SHOWER CHAIR, BSC, TOILET RISER, SLEEPS IN RECLINER CHAIR. HOME O2 THROUGH [employer], AND PORTABLE INOGEN CONCENTRATOR. THEY HAVE A PD PERSON WHO SLEEPS OVER , THU, AND NIGHTS TO CARE FOR PT. PT HAD BEEN ON [facility] IN THE PAST DC ABOUT 3 WEEKS AGO. DTR INDICATED THEY PLAN TO RETURN HOME WITH [facility] ONCE MEDICALLY STABLE. CM TO FAX REFERRAL TO [facility]. CM FOLLOWING REGARDING DC PLANNING.
[2021-04-02 17:37] VITALS: BP 190/89
--- NOTE | 2021-04-02 19:29 | NUR ---
Patient very sleepy today. Patient and her daughters are requesting a walking boot for her right foot. notified and will assess tomorrow and added robutussin and Cepocal drops on emar for cough.
[2021-04-02 19:50] VITALS: BP 188/95
--- NOTE | 2021-04-03 02:13 | NUR ---
PT CARE ASSUMED WITH DAUGHTER AT THE SIDE OF THE BED.PT IS A/O X2.PT IS ON 3L OF O2 VIA [place] AND USE O2 AT HOME.PT IS ACCUCHECKS ACHS.PT IS UP WITH X2 ASSIST TO CHAIR OR BSC.IV ACCESS ON RT CHEST /BREAST WITH NS AT 100CC/HR.WILL CONTINUE TO MONITOR
[2021-04-03] MEDS ORDERED: CEFDINIR300 MG PO (07:35)
[2021-04-03 07:50] VITALS: BP 103/72
[2021-04-03 07:59] VITALS: BP 189/78
[2021-04-03 10:41] VITALS: BP 189/78
[2021-04-03 11:02] VITALS: BP 189/78
--- NOTE | 2021-04-03 11:04 | NUR ---
PT RESTING COMFORTABLY WITH DAUGHTER AT BEDSIDE. PT AFEBRILE, ADEQUATE UOP, SMEAR BM, DECREASED APPETIITE. PT AND DAUGHTER HAVE BEEN THOUROUGHLY UPDATED AND EDUCATED ON PT CONDITION AND POC. PT PROGRESSING TOWARDS POC. DC HOME TODAY.
--- NOTE | 2021-04-03 11:45 | NUR ---
CARE TEAM INDICATED PT PT IS MEDICALLY STABLE TO DC HOME THIS DAY. CM FAXED REFERRAL OVER THE [facility] PER PT AND FAMILY REQUEST. THEY REEIVED AND ARE ABLE TO ACCEPT PT FOR SERVICES UPON DC. CM FAXED ORDERS. PT'S FAMILY PROVIDED TRANSPORT HOME THIS DAY. PT HAS ALL NEEDED DME. NO OTHER CM INTERVENTION INDICATED. CASE CLOSED.
== END 2021-04-03 11:19 | disposition home health service (06) | DRG 91 ==
LOC: ER 19:42 → EROBS 23:32 → 4W 23:32
PROVIDERS: Emergency Medicine; ADMIT Family Medicine; ATTEND Family Medicine
DX: G92 Toxic encephalopathy (principal); J18.9 Pneumonia, unspecified organism; J96.21 Acute and chronic respiratory failure with hypoxia; N17.0 Acute kidney failure with tubular necrosis; R65.11 Systemic inflammatory response syndrome (SIRS) of non-infectious origin with acute organ dysfunction; I50.30 Unspecified diastolic (congestive) heart failure; J44.1 Chronic obstructive pulmonary disease with (acute) exacerbation; J44.0 Chronic obstructive pulmonary disease with (acute) lower respiratory infection; E78.00 Pure hypercholesterolemia, unspecified; K21.9 Gastro-esophageal reflux disease without esophagitis; Z20.822 Contact with and (suspected) exposure to COVID-19; F32.9 Major depressive disorder, single episode, unspecified; M19.90 Unspecified osteoarthritis, unspecified site; E11.51 Type 2 diabetes mellitus with diabetic peripheral angiopathy without gangrene; I11.0 Hypertensive heart disease with heart failure; G89.29 Other chronic pain; M54.9 Dorsalgia, unspecified; Z96.652 Presence of left artificial knee joint; I25.10 Atherosclerotic heart disease of native coronary artery without angina pectoris; I25.2 Old myocardial infarction; Z95.1 Presence of aortocoronary bypass graft; Z79.4 Long term (current) use of insulin; Z90.49 Acquired absence of other specified parts of digestive tract; Z87.442 Personal history of urinary calculi; Z98.42 Cataract extraction status, left eye; Z98.41 Cataract extraction status, right eye; Z90.710 Acquired absence of both cervix and uterus; Z86.711 Personal history of pulmonary embolism; Z86.718 Personal history of other venous thrombosis and embolism; Z95.5 Presence of coronary angioplasty implant and graft; Z87.891 Personal history of nicotine dependence; Z88.6 Allergy status to analgesic agent; Z88.1 Allergy status to other antibiotic agents; Z88.8 Allergy status to other drugs, medicaments and biological substances; Z79.891 Long term (current) use of opiate analgesic; Z79.899 Other long term (current) drug therapy
CPT/HCPCS: 10045